=== PATIENT | male | born 1955 | race Caucasian/White ===

== ENCOUNTER 2018-08-27 12:00 | Outpatient (CLI) | payer MEDICARE ==
--- NOTE | 2018-08-27 15:31 | MRI ---
MRI CERVICAL SPINE WITHOUT CONTRASTs: Date: 08/27/18 Multiplanar, multisequential imaging of cervical spine obtained. INDICATION: Cervical radiculopathy. FINDINGS: The cervical vertebra maintain normal height and alignment. There are moderate degenerative changes o f the mid cervical spine. Loss of disc space at C5-6 and C6-7 with hypertrophic spurring from the ant erior vertebra. Posterior listhesis at C5-6 measures approximately 3.0 mm. Asymmetric hypertrophy on the right produces right foraminal narrowing at C2-3. At C3-4, there is mild disc bulge and spondylosis; however, no cord impingement or foraminal encroach ment. At C4-5, there is mild disc bulge and spondylosis, most prominent centrally impinging on the anterior cord centrally. Mild uncinate hypertrophy without significant foraminal stenosis. At C5-6, posterior subluxation is noted above and posterior disc bulge and spondylosis which impinge on and mildly flatten the anterior cord. Bilateral foraminal narrowing secondary to hypertrophic mendoza ge. At C6-7, disc bulge and spondylosis abuts the anterior cord. These changes are more pronounced to the left. There is disc osteophyte complex and hypertrophic change encroaching into the left foramina. At C7-T1, there is mild spondylosis. IMPRESSION: Posterior disc bulge and spondylitic change most prominent at C4-5, C5-6, and C6-7 as described above . Right foraminal encroachment at C23 as noted above. POS: [facility]
== END 2018-08-27 12:01 | disposition home or self-care (01) ==
LOC: BICMRI 12:00
PROVIDERS: ATTEND Nurse Practitioner Family
DX: M47.22 Other spondylosis with radiculopathy, cervical region (principal); M50.121 Cervical disc disorder at C4-C5 level with radiculopathy; M50.122 Cervical disc disorder at C5-C6 level with radiculopathy; M50.123 Cervical disc disorder at C6-C7 level with radiculopathy
CPT/HCPCS: 72141

== ENCOUNTER 2018-09-28 15:06 | Emergency (ER) | payer MEDICARE ==
[2018-09-28 15:55] LABS: #Basophils 0.1 thou/uL (0.0-0.2); #Eosinphils 0.1 thou/uL (0.0-0.7); #Lymphocytes 2.8 thou/uL (1.20-3.40); #Monocytes 0.6 thou/uL (0.11-0.59); #Neutrophils 4.2 thou/uL (1.40-6.50); %Basophils 0.9 % (0.0-1.0); %Eosinophils 1.7 % (0.0-10.0); %Lymphocytes 35.4 % (21.0-51.0); %Monocytes 7.9 % (0.0-10.0); %Neutrophils 54.1 % (42.0-75.0); Hemoglobin 12.7 g/dL (14.0-18.0); Mean Corpuscular HGB CONC 32.2 g/dL (32.0-36.0); Mean Corpuscular Hemoglobin 31.7 pg (27.0-31.0); Mean Corpuscular Volume 98.5 fL (78.0-98.0); Mean Platelet Volume 7.6 fL (7.4-10.4); Platelet Count 292 thou/uL (130-400); RBC Distribution Width 12.9 % (11.5-14.5); White Blood Cell (WBC) Count 7.8 thou/uL (4.8-10.8)
[2018-09-28 16:21] LABS: ALT (SGPT) 11 U/L (8-55); AST (SGOT) 15 U/L (5-34); Albumin 4.3 g/dL (3.4-4.8); Alkaline Phosphatase 74 U/L (40-150); Anion Gap 11 mmol/L (10-20); BUN (Urea Nitrogen) 16 mg/dL (8.4-25.7); Bilirubin, Total 0.4 mg/dL (0.2-1.2); Calc. Creatinine Clearance 0 mL/min (70-130); Calcium 9.3 mg/dL (7.8-10.44); Carbon Dioxide 27 mmol/L (23-31); Chloride 101 mmol/L (98-107); Estimated GFR-MDRD 75; Globulin 2.5 g/dL (2.4-3.5); Glucose 117 mg/dL (80-115); Potassium 4.2 mmol/L (3.5-5.1); Protein, Total 6.8 g/dL (5.8-8.1); Sodium 135 mmol/L (136-145)
--- NOTE | 2018-09-28 17:30 | RAD ---
TWO VIEWS ABDOMEN: 09/28/18 HISTORY: Not provided. COMPARISON: None. FINDINGS: No evidence of pneumoperitoneum. Nonspecific bowel gas pattern. There is scattered fecal material in a nondistended, nondilated colon. No significant density in the abdomen or pelvis. IMPRESSION: Nonspecific bowel gas pattern. POS: [facility]
== END 2018-09-28 16:43 | disposition home or self-care (01) ==
LOC: ERS 15:06
DX: K59.00 Constipation, unspecified (principal); K21.9 Gastro-esophageal reflux disease without esophagitis; I10 Essential (primary) hypertension; J44.9 Chronic obstructive pulmonary disease, unspecified; F17.210 Nicotine dependence, cigarettes, uncomplicated; Z79.899 Other long term (current) drug therapy
CPT/HCPCS: 74019; 80053; 85025; 96360

== ENCOUNTER 2018-10-25 11:04 | Outpatient (CLI) | payer MEDICARE ==
--- NOTE | 2018-10-25 15:26 | RAD ---
CERVICAL SPINE AP AND LATERAL STANDAR: Date: 10/25/18 COMPARISON: MRI cervical spine dated 08/27/18. FINDINGS: There is narrowing of the C5-6 and C6-7 interspace with anterior and posterior disc osteophyte comple xes. The 1.0 mm of C2 over C3 anterolisthesis which does not change with flexion or extension. No sig nificant translation with flexion or extension. There is 2.0 mm retrolisthesis of C5 over C6, which a lso does not change with flexion or extension. IMPRESSION: Spondylosis without translation with flexion or extension. POS: [facility]
== END 2018-10-25 11:05 | disposition home or self-care (01) ==
LOC: RAD 11:04
PROVIDERS: ATTEND Nurse Practitioner Family
DX: M43.02 Spondylolysis, cervical region (principal)
CPT/HCPCS: 72040

== ENCOUNTER 2018-11-26 17:01 | Observation (INO) | payer MEDICARE ==
[2018-11-26 17:39] LABS: #Basophils 0.1 thou/uL (0.0-0.2); #Eosinphils 0.2 thou/uL (0.0-0.7); #Lymphocytes 2.5 thou/uL (1.20-3.40); #Monocytes 1.1 thou/uL (0.11-0.59); #Neutrophils 11.6 thou/uL (1.40-6.50); %Basophils 0.5 % (0.0-1.0); %Eosinophils 1.3 % (0.0-10.0); %Lymphocytes 16.3 % (21.0-51.0); %Monocytes 7.3 % (0.0-10.0); %Neutrophils 74.6 % (42.0-75.0); Hemoglobin 12.8 g/dL (14.0-18.0); Mean Corpuscular HGB CONC 32.5 g/dL (32.0-36.0); Mean Corpuscular Hemoglobin 31.5 pg (27.0-31.0); Mean Platelet Volume 8.2 fL (7.4-10.4); Platelet Count 251 thou/uL (130-400); Red Blood Cell (RBC) Count 4.07 mill/uL (4.70-6.10); White Blood Cell (WBC) Count 15.5 thou/uL (4.8-10.8)
[2018-11-26 18:00] LABS: ALT (SGPT) 11 U/L (8-55); AST (SGOT) 12 U/L (5-34); Albumin 4.3 g/dL (3.4-4.8); Alkaline Phosphatase 85 U/L (40-150); Anion Gap 15 mmol/L (10-20); BUN (Urea Nitrogen) 17 mg/dL (8.4-25.7); Bilirubin, Total 0.3 mg/dL (0.2-1.2); Calc. Creatinine Clearance 0 mL/min (70-130); Calcium 9.1 mg/dL (7.8-10.44); Carbon Dioxide 24 mmol/L (23-31); Chloride 102 mmol/L (98-107); Estimated GFR-MDRD 84; Globulin 2.4 g/dL (2.4-3.5); Glucose 104 mg/dL (80-115); Potassium 4.9 mmol/L (3.5-5.1); Protein, Total 6.7 g/dL (5.8-8.1); Sodium 136 mmol/L (136-145)
--- NOTE | 2018-11-26 18:41 | RAD ---
CHEST PA AND LATERAL: History: 63-year-old male with history of chest pain. FINDINGS: Heart size is normal. The lungs are clear. IMPRESSION: No acute intrathoracic disease. POS: [facility]
[2018-11-26] MEDS ORDERED: Nitroglycerin 2% Ointment 1 INCH/1 GM Packet ONE (19:19)
[2018-11-26] MEDS ORDERED: Senokot S 8.6-50 MG TAB PO PRN (20:21)
[2018-11-26] MEDS ORDERED: Calcium Carbonate 500 MG ChewTAB PO PRN (20:21)
[2018-11-26] MEDS ORDERED: Nitroglycerin 0.4 MG TAB (25 Tab Bottle) PO PRN (20:21)
[2018-11-26] MEDS ORDERED: Zolpidem Tartrate 5 MG TAB PO PRN (20:21)
[2018-11-26] MEDS ORDERED: Ondansetron ODT 4 MG TAB PO PRN (20:21)
[2018-11-26] MEDS ORDERED: Ondansetron PF 4 MG/2 ML Vial IVP PRN (20:21)
[2018-11-26] MEDS ORDERED: Bisacodyl 5 MG TAB PO PRN (20:21)
[2018-11-26] MEDS ORDERED: Morphine 2 MG/ML SYRINGE ONE (20:51)
[2018-11-26] MEDS ORDERED: Metoprolol Tartrate 25 MG TAB PO SCH (21:00)
[2018-11-26] MEDS ORDERED: Famotidine/PF 20 mg/2ml Vial SLOW IVP SCH (21:00)
[2018-11-26 21:05] LABS: Troponin I Less than 0.010 ng/mL (< 0.028)
[2018-11-26] MEDS: Acetaminophen 325 MG TAB PO PRN (22:47)
[2018-11-26] MEDS: Famotidine 20 MG TAB PO SCH (22:47)
[2018-11-26] MEDS: Sodium Chloride 0.9% 1,000 ML IV SCH (22:53)
[2018-11-26] MEDS: Nitroglycerin 2% Ointment 1 INCH/1 GM Packet TOP SCH (22:54)
[2018-11-26 23:00] VITALS: BMI 20.7
[2018-11-26 23:50] LABS: Troponin I Less than 0.010 ng/mL (< 0.028)
[2018-11-27 05:06] LABS: #Basophils 0.1 thou/uL (0.0-0.2); #Eosinphils 0.2 thou/uL (0.0-0.7); #Lymphocytes 2.6 thou/uL (1.20-3.40); #Monocytes 1.1 thou/uL (0.11-0.59); #Neutrophils 9.2 thou/uL (1.40-6.50); %Basophils 0.5 % (0.0-1.0); %Eosinophils 1.7 % (0.0-10.0); %Lymphocytes 19.8 % (21.0-51.0); %Monocytes 8.5 % (0.0-10.0); %Neutrophils 69.5 % (42.0-75.0); Hemoglobin 11.8 g/dL (14.0-18.0); Mean Corpuscular HGB CONC 32.7 g/dL (32.0-36.0); Mean Corpuscular Hemoglobin 31.8 pg (27.0-31.0); Mean Corpuscular Volume 97.1 fL (78.0-98.0); Platelet Count 202 thou/uL (130-400); RBC Distribution Width 12.7 % (11.5-14.5); White Blood Cell (WBC) Count 13.2 thou/uL (4.8-10.8)
[2018-11-27 05:27] LABS: Anion Gap 10 mmol/L (10-20); BUN (Urea Nitrogen) 12 mg/dL (8.4-25.7); Calc. Creatinine Clearance 77 mL/min (70-130); Carbon Dioxide 28 mmol/L (23-31); Chloride 105 mmol/L (98-107); Estimated GFR-MDRD Greater than 90; Glucose 93 mg/dL (80-115); Potassium 4.7 mmol/L (3.5-5.1); Sodium 138 mmol/L (136-145)
[2018-11-27] MEDS: Nitroglycerin 2% Ointment 1 INCH/1 GM Packet TOP SCH ×2 (05:42→13:14)
[2018-11-27] MEDS: Sodium Chloride 0.9% 1,000 ML IV SCH (07:49)
[2018-11-27] MEDS: cloNIDine 0.1 MG TAB PO SCH ×2 (07:49→13:52)
[2018-11-27] MEDS: Acetaminophen 325 MG TAB PO PRN (07:49)
[2018-11-27] MEDS: Enoxaparin Sodium 40 MG/0.4 ML SYRINGE SC SCH ×2 (07:49→07:56)
[2018-11-27] MEDS: Famotidine 20 MG TAB PO SCH (07:50)
[2018-11-27] MEDS: Gabapentin 300 MG CAP PO SCH ×2 (07:50→13:52)
[2018-11-27] MEDS ORDERED: Aspirin 325 MG TAB PO SCH (09:00)
--- NOTE | 2018-11-27 09:09 | HP ---
CHIEF COMPLAINT: Chest pain. HISTORY OF PRESENT ILLNESS: This is a 63-year-old male with past medical history of GERD, hypertension, and coronary artery disease, presenting with chest pain. Per the patient, his chest pain started from his abdomen at the epigastric region and made its way to his chest. The patient states that he thinks the chest pain is most likely due to his history of GERD. Per record, the patient stated that he was picking up his heavy blanket and he started having this epigastric chest pain, which radiated into his chest. The patient has a history of having chest pain with exertion, but it seems like the patient is currently now having chest pain with minimal activity. Upon investigation and reading the patient's chart, the patient had a heart catheterization in 2011, which showed no stenosis at the time. At this time, the patient states that his chest pain is minimal and he denies any fever, chills, shortness of breath, palpitation, abdominal pain, constipation, or diarrhea. In the ED, the patient stated that his chest pain was 7/10 and described as sharp pain, but currently, the patient denies any chest pain at this time. REVIEW OF SYSTEMS: Positive for minimal chest pain at this time. Otherwise, all systems are reviewed and are negative. PAST MEDICAL HISTORY: GERD, hypertension, and COPD. FAMILY HISTORY: Reviewed and noncontributory to this visit. PAST SURGICAL HISTORY: Heart catheterization in 2012 and vasectomy. PSYCHIATRIC HISTORY: No psych history. SOCIAL HISTORY: The patient currently smokes half a pack per day. The patient lives at home by himself. The patient denies any illicit drugs and alcohol use. ALLERGIES: THE PATIENT IS ALLERGIC TO TRAMADOL. CURRENT MEDICATIONS: The patient takes: 1. Imdur 120 mg. 2. Toprol-XL 25 mg. 3. Catapres 0.1 mg. 4. DuoNeb. 5. Protonix. 6. Adrian. PHYSICAL EXAMINATION: VITAL SIGNS: The patient's blood pressure is 125/85, pulse of 85, respiratory rate of 18, temperature of 98.6, and oxygen saturation of 95%. GENERAL: The patient is alert and oriented x3, not in acute distress. The patient is lying on his left side, speaking in full sentences, pleasant. HEENT: Normocephalic and atraumatic. Pupils are equally round and reactive to light. Extraocular movements are intact. No scleral icterus. No conjunctival pallor. Mucous membranes are moist. NECK: Trachea is midline. Full range of motion. No JVD is appreciated. Supple. LUNGS: Clear to auscultation bilaterally. No wheezing, no rales, no rhonchi appreciated. CARDIAC: Positive S1 and S2. Regular rate and rhythm. No murmurs, no gallops, no rubs appreciated. ABDOMEN: Soft, nontender, and nondistended. Positive bowel sounds in all quadrants. No rigidity. No guarding. EXTREMITIES: 5/5 upper extremity strength with good pulses bilaterally. Lower extremity, no edema noted. 5/5 lower extremity strength. NEUROLOGIC: Cranial nerves 2 through 12 grossly intact. No neurologic deficits noted. SKIN: Warm, dry, and intact. PSYCH: Normal affect. Alert and oriented x3. DIAGNOSTIC DATA: EKG shows sinus rhythm with a rate of 78. Chest x-ray shows emphysematous changes. LABORATORY DATA: WBC 15.5, hemoglobin is 12.8, hematocrit is 39.5, platelet is 251. Sodium is 136, potassium is 4.9, chloride is 102, carbon dioxide of 24, anion gap of 15, BUN is 17, creatinine is 0.91, glucose is 104. Troponin is 0.010 x2. ASSESSMENT AND PLAN: 1. This is a 63-year-old male, being admitted for chest pain, rule out acute coronary syndrome. At this time, the patient's troponin x2 has been negative. We will trend the patient's troponins and we have consulted Cardiology. We will follow up with their recommendations. We will continue the patient on aspirin and his beta blockers. We will continue to monitor the patient and we will follow up on echo, which has been ordered. 2. History of gastroesophageal reflux disease. At this time, we have started the patient on Pepcid. We will continue the patient on Pepcid and we have advised the patient to elevate the head of bed at 45 degrees when he is sleeping and also for the patient to eat early. The patient has also been advised to stay away from spicy food, milk, cheese since these foods can cause reflux symptoms. 3. Coronary artery disease. We will continue the patient on his home medications. 4. Hyperlipidemia. We will continue the patient on the current treatment. 5. Deep venous thrombosis and gastrointestinal prophylaxis. Job ID: [id number]
[2018-11-27] MEDS ORDERED: Regadenoson 0.4 MG/5 ML SYRINGE ONE (10:04)
[2018-11-27] MEDS ORDERED: HYDROcodone/Acetaminophen 5/325 mg Tablet PO PRN ×2 (13:37)
--- NOTE | 2018-11-27 16:01 | NM ---
NUCLEAR MEDICINE MYOCARDIAL PERFUSION SCAN 11/27/18 HISTORY: Chest pain, history of myocardial infarction. TECHNIQUE: SPECT imaging of the left ventricular myocardium obtained during rest and stress following the intrav enous administration of 9.5 and 28.5 millicuries technetium 99m labeled Sestamibi respectively. FINDINGS: No fixed or reversible defect noted. TID is 1.04. Left ventricular wall motion appears normal. Left ventricular ejection fraction at 60% with EDV of 10 8 mL and ESV of 43 mL. IMPRESSION: No fixed or reversible defects. Normal left ventricular wall motion and ejection fraction. POS: [facility]
[2018-11-27 16:16] VITALS: BP 148/78; TEMP 98
--- NOTE | 2018-11-27 16:57 | DIS ---
DATE OF ADMISSION: 11/26/2018 DATE OF DISCHARGE: 11/27/2018 PRIMARY CARE PHYSICIAN: Lisa Aguirre MD DISCHARGE DIAGNOSES: 1. Chest pain, noncardiac, likely musculoskeletal. 2. Hypertension. 3. Tobacco abuse. 4. Chronic obstructive pulmonary disease. DISCHARGE MEDICATIONS: Discharge medications remain the same as admission medication. New medication, aspirin 325 mg daily. PROCEDURES IN THE HOSPITAL: Nuclear medicine stress test, which is negative for any reversible or fixed defects. Ejection fraction is noticed at 60%. No wall motion abnormality. TID 1.04. HISTORY OF PRESENT ILLNESS: Mr. Noonan is a 63-year-old male with past medical history of hypertension, COPD, and tobacco abuse, who presented to the ER with complaints of chest pain after lifting some heavy blankets. He had a heart catheterization in 2011, which he reports that was negative. He just moved to [facility] from [place] 3 months ago and reports that he has an upcoming appointment with Cardiology in the next 2 or 3 weeks. He was admitted for observation and further workup. His cardiac enzymes were trended and were negative. He underwent his nuclear medicine stress test, which was also negative. He remained hemodynamically stable throughout the rest of his hospitalization. He was seen and examined prior to discharge. PHYSICAL EXAMINATION: VITAL SIGNS: Temperature 97.5, pulse of 74, respirations 18, saturating 93% on room air, and blood pressure of 132/78. GENERAL: No acute distress. CHEST: Clear to auscultation bilaterally. HEART: Rate and rhythm is regular. DISCHARGE INSTRUCTIONS: He is being discharged with instruction to keep his followup appointment with Cardiology in the outpatient setting. He may benefit from repeat catheterization at some point in near future. Currently, ACS has been ruled out. He is instructed to start taking a daily dose of aspirin as above. Job ID: [id number]
--- NOTE | 2018-11-29 13:09 | STRESS ---
Acquisition Time: 2018-11-27 12:09:20 Total Exercise Time: 00:01:00 Test Indications: CHEST PAIN Medications: Protocol: LEXISCAN Max HR: 097 BPM 62% of Pred: 156 BPM Max BP: 120/072 mmHG Max Work Load: 1.0 METS RESTING ECG: NORMAL SINUS RHYTHM SYMPTOMS: CHEST PAIN, MENJIVAR NORMAL BP REPONSE ECTOPY: NONE ECG STRESS: NO SIGNIFICANT CHANGES INTERPRETATION: AWAIT NUCLEAR IMAGES FOR DEFINITIVE DIAGNOSIS Confirmed by JUANY JEREZ (2), manager editorial MALVIN HAWKINS ([id number]) on 11/29/2018 1:09:04 PM Referred By: MD VENTURA Confirmed By:JUANY JEREZ
== END 2018-11-27 17:32 | disposition home or self-care (01) ==
LOC: ERS 17:01 → 2SW 21:38
PROVIDERS: ADMIT Internal Medicine; ATTEND Internal Medicine
DX: R07.89 Other chest pain (principal); I10 Essential (primary) hypertension; F17.210 Nicotine dependence, cigarettes, uncomplicated; J44.9 Chronic obstructive pulmonary disease, unspecified; I25.10 Atherosclerotic heart disease of native coronary artery without angina pectoris; K21.9 Gastro-esophageal reflux disease without esophagitis; Z98.52 Vasectomy status; Z88.5 Allergy status to narcotic agent; Z79.82 Long term (current) use of aspirin; Z79.899 Other long term (current) drug therapy; Z98.890 Other specified postprocedural states
CPT/HCPCS: 71046; 78452; 80048; 80053; 83690; 84484 ×2; 85025 ×2; 93005; 93017; 94640 ×2; 94760 ×2; 96361 ×3; 96374; 99285; A9500; G0378 ×2; 36415; J1650; J2270; J2785; J7620

== ENCOUNTER 2019-01-15 14:50 | Emergency (ER) | payer MEDICARE, SELFPAY ==
[2019-01-15] MEDS ORDERED: Aspirin 325 MG TAB ONE (15:15)
[2019-01-15 15:31] LABS: #Basophils 0.1 thou/uL (0.0-0.2); #Eosinphils 0.1 thou/uL (0.0-0.7); #Lymphocytes 2.8 thou/uL (1.20-3.40); #Monocytes 0.4 thou/uL (0.11-0.59); #Neutrophils 3.7 thou/uL (1.40-6.50); %Basophils 1.8 % (0.0-1.0); %Eosinophils 1.5 % (0.0-10.0); %Lymphocytes 39.2 % (21.0-51.0); %Monocytes 5.8 % (0.0-10.0); %Neutrophils 51.6 % (42.0-75.0); Mean Corpuscular HGB CONC 31.8 g/dL (32.0-36.0); Mean Corpuscular Hemoglobin 31.4 pg (27.0-31.0); Mean Corpuscular Volume 98.9 fL (78.0-98.0); Mean Platelet Volume 6.8 fL (7.4-10.4); Platelet Count 505 thou/uL (130-400); Red Blood Cell (RBC) Count 3.82 mill/uL (4.70-6.10); White Blood Cell (WBC) Count 7.1 thou/uL (4.8-10.8)
[2019-01-15 15:52] LABS: ALT (SGPT) 8 U/L (8-55); AST (SGOT) 10 U/L (5-34); Albumin 4.1 g/dL (3.4-4.8); Alkaline Phosphatase 70 U/L (40-150); Anion Gap 12 mmol/L (10-20); BUN (Urea Nitrogen) 12 mg/dL (8.4-25.7); Bilirubin, Total Less than 0.2 mg/dL (0.2-1.2); CK (CPK) 103 U/L (30-200); Calc. Creatinine Clearance 0 mL/min (70-130); Calcium 9.3 mg/dL (7.8-10.44); Carbon Dioxide 26 mmol/L (23-31); Chloride 101 mmol/L (98-107); Estimated GFR-MDRD Greater than 90; Globulin 2.7 g/dL (2.4-3.5); Glucose 94 mg/dL (80-115); Lipase 10 U/L (8-78); Potassium 3.7 mmol/L (3.5-5.1); Protein, Total 6.8 g/dL (5.8-8.1); Sodium 135 mmol/L (136-145)
[2019-01-15] MEDS ORDERED: Ondansetron ODT 8 MG TAB ONE (16:17)
[2019-01-15] MEDS ORDERED: Ketorolac Tromethamine 30 MG/ML VIAL ONE (16:17)
[2019-01-15] MEDS ORDERED: Ondansetron PF 4 MG/2 ML Vial ONE (16:18)
--- NOTE | 2019-01-15 16:42 | RAD ---
AP VIEW CHEST 01/15/19 HISTORY: Chest pain. AP view chest is obtained on 01/15/19. Comparison made to previous exam from 11/26/18. AP view chest demonstrates EKG leads seen over the chest. No evidence of pneumothorax or pneumonia se en. Moderate pulmonary vascular congestion seen. No evidence of effusions seen. IMPRESSION: Pulmonary vascular congestion, otherwise unremarkable AP view chest. POS: [facility]
== END 2019-01-15 18:58 | disposition home or self-care (01) ==
LOC: ERS 14:50
DX: R07.9 Chest pain, unspecified (principal); K21.9 Gastro-esophageal reflux disease without esophagitis; I10 Essential (primary) hypertension; J44.9 Chronic obstructive pulmonary disease, unspecified; F17.210 Nicotine dependence, cigarettes, uncomplicated; Z79.899 Other long term (current) drug therapy
CPT/HCPCS: 36415; 71045; 80053; 82550; 83690; 83880; 84484; 85025; 85379; 93005; 96374; J1885; J2405

== ENCOUNTER 2019-04-19 23:32 | Observation (INO) | payer MEDICARE ==
[2019-04-20] MEDS ORDERED: Nitroglycerin 0.4 MG TAB 1 EACH ONE (00:03)
[2019-04-20] MEDS ORDERED: Pantoprazole 40 MG VIAL ONE (00:03)
[2019-04-20 00:19] LABS: #Basophils 0.1 thou/uL (0.0-0.2); #Eosinphils 0.3 thou/uL (0.0-0.7); #Lymphocytes 3.6 thou/uL (1.20-3.40); #Monocytes 0.7 thou/uL (0.11-0.59); #Neutrophils 4.1 thou/uL (1.40-6.50); %Basophils 1.5 % (0.0-1.0); %Eosinophils 3.9 % (0.0-10.0); %Lymphocytes 40.9 % (21.0-51.0); %Neutrophils 45.7 % (42.0-75.0); Hemoglobin 12.6 g/dL (14.0-18.0); Mean Corpuscular HGB CONC 32.2 g/dL (32.0-36.0); Mean Corpuscular Volume 99.2 fL (78.0-98.0); Mean Platelet Volume 7.4 fL (7.4-10.4); Platelet Count 306 thou/uL (130-400); RBC Distribution Width 13.5 % (11.5-14.5); Red Blood Cell (RBC) Count 3.94 mill/uL (4.70-6.10); White Blood Cell (WBC) Count 8.9 thou/uL (4.8-10.8)
[2019-04-20 00:25] LABS: INR-International Normal Ratio 0.9; PTT 29.4 SEC (22.9-36.1); Prothrombin Time 12.1 SEC (12.0-14.7)
--- NOTE | 2019-04-20 00:29 | RAD ---
EXAM: CHEST ONE VIEW HISTORY: Difficulty breathing, bloody emesis. COMPARISON: 01/15/2019. FINDINGS: The cardiac silhouette and pulmonary vasculature is within normal limits. The lungs are clear. The os seous structures are intact. Vascular calcifications are again seen in the thoracic aorta. IMPRESSION: No acute cardiopulmonary process.
[2019-04-20] MEDS ORDERED: Ondansetron PF 4 MG/2 ML Vial ONE (00:31)
[2019-04-20 00:40] LABS: ALT (SGPT) Less than 7 U/L (8-55); AST (SGOT) 11 U/L (5-34); Albumin 3.8 g/dL (3.4-4.8); Alkaline Phosphatase 60 U/L (40-150); Anion Gap 10 mmol/L (10-20); BUN (Urea Nitrogen) 13 mg/dL (8.4-25.7); Bilirubin, Total Less than 0.2 mg/dL (0.2-1.2); Calc. Creatinine Clearance 0 mL/min (70-130); Calcium 8.8 mg/dL (7.8-10.44); Carbon Dioxide 26 mmol/L (23-31); Chloride 106 mmol/L (98-107); Estimated GFR-MDRD 83; Globulin 1.9 g/dL (2.4-3.5); Glucose 86 mg/dL (80-115); Potassium 4.2 mmol/L (3.5-5.1); Protein, Total 5.7 g/dL (5.8-8.1); Sodium 138 mmol/L (136-145)
[2019-04-20] MEDS ORDERED: Morphine 4 MG/ML VIAL ONE (03:05)
[2019-04-20 03:43] LABS: Troponin I Less than 0.010 ng/mL (< 0.028)
[2019-04-20] MEDS ORDERED: Acetaminophen 325 MG TAB PO PRN (04:48)
[2019-04-20 05:44] VITALS: BMI 18.9
[2019-04-20 08:00] LABS: Troponin I Less than 0.010 ng/mL (< 0.028)
[2019-04-20] MEDS ORDERED: Non-Formulary Item 1 EACH (Diclofenac Sodium [Diclofenac Sodium 1% Gel] 2 GM) TOP PRN (08:21)
[2019-04-20] MEDS: Ketorolac Tromethamine 30 MG/ML VIAL IVP PRN ×3 (08:46→22:17)
[2019-04-20] MEDS: cloNIDine 0.1 MG TAB PO SCH (08:47)
[2019-04-20] MEDS: Gabapentin 300 MG CAP PO SCH ×3 (08:47→20:10)
[2019-04-20] MEDS: Famotidine 20 MG TAB PO SCH ×2 (08:47→20:10)
[2019-04-20] MEDS: HYDROcodone/Acetaminophen 10/325 mg Tablet PO SCH ×2 (08:47→20:08)
[2019-04-20] MEDS: Cyanocobalamin (Vitamin B-12) 1,000 MCG TAB PO SCH (08:47)
[2019-04-20] MEDS: Pantoprazole 40 MG GRANULES PACKET PO SCH (08:49)
[2019-04-20] MEDS ORDERED: Non-Formulary Item 1 EACH (Cyanocobalamin (Vitamin B-12) [Vitamin B-12] 1,000 MCG) PO SCH (09:00)
[2019-04-20] MEDS ORDERED: Aspirin 325 MG TAB PO SCH (09:00)
[2019-04-20] MEDS ORDERED: Non-Formulary Item 1 EACH (Isosorbide Mononitrate [Imdur Er] 120 MG) PO SCH (09:00)
[2019-04-20] MEDS ORDERED: Non-Formulary Item 1 EACH (Ranitidine Hcl [Ranitidine Hcl] 150 MG) PO SCH (09:00)
[2019-04-20] MEDS ORDERED: Non-Formulary Item 1 EACH (Pantoprazole Sodium [Protonix] 20 MG) PO SCH (09:00)
--- NOTE | 2019-04-20 12:34 | HP ---
CHIEF COMPLAINT: Chest pain. HISTORY OF PRESENT ILLNESS: The patient is a 63-year-old male with past medical history significant for coronary artery disease, reportedly mild per the patient per left heart catheterization in 2011; history of previous myocardial infarction, unknown type; hypertension; hyperlipidemia; tobacco abuse, who presented to the hospital with complaints of chest pain that began several days ago. The patient reports that the pain is fairly constant across his chest. At times, he has associated sharp stabbing pain in addition to his constant pain, which he describes as "squeezing." His pain is exacerbated with deep breathing. He has had intermittent episodes of shortness of breath as well as nausea and 1 episode of emesis that occurred prior to his presentation to the hospital. The patient states that he has had recurrent episodes of chest pain, but this seems to be worse than previous episodes. He was admitted at this facility on November 2018 and did have a nuclear stress test at that time, which was negative for reversible ischemia and showed normal EF. He has had no followup with Cardiology. 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 On arrival to the ER, EKG shows normal sinus rhythm with occasional PVC and no acute/dynamic ST or T-wave changes. His serial troponin has been negative x3. He continues to complain of some constant chest pain that does not seem to be relieved or exacerbated by anything at this point aside from deep breathing. REVIEW OF SYSTEMS: 12-point review of systems performed. He does report episodes of acid reflux, which causes him some chest discomfort. Otherwise, 12-point review of systems is negative. He denies any recent illnesses, cough, fever, or chills. He denies any coffee-grounds emesis or blood in his urine or stool. ALLERGIES: TRAMADOL. HOME MEDICATIONS: 1. Albuterol sulfate two puffs inhaled 6 hours p.r.n. 2. Clonidine 0.1 mg one tablet p.o. daily. 3. Vitamin B12 1000 mcg capsule one capsule daily. 4. Diclofenac 100 g tube 2 g topical q.i.d. p.r.n. 5. Gabapentin 300 mg p.o. t.i.d. 6. Hydrocodone 10/325 one tab p.o. b.i.d. 7. DuoNeb 3 mg nebulizer q.6 hours p.r.n. 8. Imdur 120 mg tablet one tablet p.o. daily. 9. Metoprolol succinate 100 mg tablet one tablet p.o. daily. 10. Protonix 20 mg one tablet p.o. daily. 11. Ranitidine 150 mg tablet one tablet p.o. b.i.d. PAST MEDICAL HISTORY/SURGICAL HISTORY: GERD, hypertension, COPD, mild coronary artery disease per patient per left heart catheterization in 2012, previous myocardial infarction, unknown type, chronic neck and pain syndrome, and vasectomy. SOCIAL HISTORY: The patient smokes at least 1/2 pack per day of cigarettes. He denies any alcohol or illicit drug use. He lives at home with family. FAMILY HISTORY: Noncontributory. PHYSICAL EXAMINATION: VITAL SIGNS: Blood pressure 134/80, pulse 76, O2 saturation is 92% on room air, temperature is 98 degrees. GENERAL: This is a thin, disheveled appearing male in no acute distress, although, does appear mildly uncomfortable because of his pain. HEENT: Head is atraumatic and normocephalic. Mucous membranes are moist. NECK: Trachea is midline. No JVD. CV: S1 and S2. Regular rate and rhythm. No appreciable murmurs, rubs, or gallops. LUNGS: Regular respiratory rate and pattern, occasional expiratory wheeze noted. Diminished vesicular breath sounds throughout. ABDOMEN: Positive bowel sounds. Soft, nontender. EXTREMITIES: No edema. Warm and well perfused. SKIN: Warm and dry. No apparent rashes or discolorations. NEUROLOGIC: Cranial nerves 2 through 12 are grossly intact. The patient is nonfocal. LABORATORY DATA: White blood cell count 8.9, hemoglobin 12.6, hematocrit 39.1, platelet count is 306. PT 12.1, INR is 0.9, APTT 29.4. Sodium 138, potassium 4.2, BUN 13, creatinine 0.92. AST 11, ALT 7, alkaline phosphatase 60. Troponin is negative x2. BNP is 27.6. ASSESSMENT: 1. Chest pain, largely atypical, although, the patient has known disease in numerous risk factors, acute coronary syndrome ruled out. 2. History of myocardial infarction, unknown type. 3. History of coronary artery disease, apparently nonocclusive per left heart catheterization in 2011 per patient. 4. Chronic pain syndrome, on opioids. 5. Chronic obstructive pulmonary disease with ongoing tobacco abuse. 6. Gastroesophageal reflux disease. PLAN: At this time given the patient's numerous risk factors and persistent episodes of chest pain despite negative recent nuclear stress test, we will consult Cardiology for their recommendations. The patient is not on aspirin or statin per home medication list and will start these as well as get a fasting lipid panel tomorrow morning. We will attempt pain relief with IV Toradol and initiate his other home pain medications. The care of this patient has been discussed with Dr. Ashford, who agrees with plan as outlined above. Job ID: [id number]
--- NOTE | 2019-04-20 14:45 | CON ---
DATE OF CONSULTATION: 04/20/2019 REASON FOR CONSULTATION: Chest pain. HISTORY OF PRESENT ILLNESS: Mr. Noonan is a pleasant 63-year-old white gentleman, who comes to the hospital for chest pain. He had a similar episode back in 2011 and underwent heart catheterization and he was told he had mild blockages, but nothing flow limiting. No stent or bypass surgery was recommended. He had an episode for the last several days of constant pain across his chest, sharp, stabbing at times. Yesterday, he developed nausea and vomiting. No bleeding. He decided to come in for this. He was here for similar episode back in November 2018, at which point, he had a nuclear stress test, that was negative. He had normal LV function. He has not seen Cardiology since 2011 when he had his heart catheterization, which is actually done in [place]. He moved to this area about 8 months ago. Currently, he is pain free. He tells me he has had a lot of GI issues. He has been on medications for reflux for several years and has never been able to get it fully controlled. I asked him when his last endoscopy had been and he tells me that he has never had one. PAST MEDICAL HISTORY: 1. GERD. 2. Hypertension. 3. COPD. 4. Mild coronary artery disease in 2011. 5. Chronic neck pain. PAST SURGICAL HISTORY: 1. Vasectomy in the past. 2. Left heart catheterization as above. SOCIAL HISTORY: He smokes about 5 cigarettes a day, but before that, he was smoking about a pack for several years. No alcohol or drugs. FAMILY HISTORY: Noncontributory. OUTPATIENT MEDICATIONS: 1. Albuterol inhaler. 2. Clonidine 0.1 mg a day. 3. Vitamin B12. 4. Diclofenac. 5. Gabapentin. 6. Hydrocodone p.r.n. 7. DuoNebs. 8. Imdur 120 mg a day. 9. Metoprolol succinate 100 mg a day. 10. Protonix. 11. Ranitidine 150 mg b.i.d. ALLERGIES: TRAMADOL. REVIEW OF SYSTEMS: 12-point review of systems was done and was all negative unless stated in history of present illness. PHYSICAL EXAMINATION: VITAL SIGNS: Temperature 98.1, pulse 82, respiratory rate 24, sat 95% on room air, and blood pressure 157/74. GENERAL: Awake, alert, and oriented x3. No distress. HEENT: Normocephalic and atraumatic. NECK: Supple. LUNGS: Clear. CARDIOVASCULAR: S1 and S2. No S3 or S4. No murmurs or rubs. ABDOMEN: Soft. Positive bowel sounds. EXTREMITIES: No edema. SKIN: Warm and dry. LABORATORY DATA: Laboratory work was reviewed. CBC with a white count of 8.9, hemoglobin of 12, hematocrit of 39, and platelet count of 306. Coags were unremarkable. Chemistries were unremarkable. Troponin was completely undetectable x3. BNP was 27. Normal BUN and creatinine. EKG was normal. ASSESSMENT/PLAN: 1. Chest pain. Atypical in nature, likely GI issues. 2. Gastroesophageal reflux disease. Never had a full evaluation with endoscopy. He will probably need a GI evaluation either inpatient or outpatient. PLAN: We will get an echocardiogram. If this is unremarkable, he may be discharged home from the cardiac perspective. We will follow up with him in 1 month, and if he continues to have chest pain, he will need a heart catheterization. Currently, he does not want a heart catheterization unless he absolutely needs it. He is not having an acute WA. He is not having any troponin elevation, so we will just continue current medications if his echo is normal. If his echo shows anything, but normal LV function, we will recommend a heart catheterization at that time. Thank you for letting me to participate in the care of your patient. We will follow. Job ID: [id number]
--- NOTE | 2019-04-20 20:31 | EKG ---
Test Reason : Blood Pressure : / mmHG Vent. Rate : 071 BPM Atrial Rate : 071 BPM P-R Int : 124 ms QRS Dur : 084 ms QT Int : 384 ms P-R-T Axes : 080 054 071 degrees QTc Int : 417 ms Normal sinus rhythm Normal ECG When compared with ECG of 19-APR-2019 23:46, (Unconfirmed) Premature ventricular complexes are no longer Present Confirmed by TRE SWEET, SCarie ([id number]) on 04/20/2019 8:31:12 PM Referred By: Wendi WELCH Confirmed By:DR. Rancho TOLEDO MD
[2019-04-21] MEDS: Ketorolac Tromethamine 30 MG/ML VIAL IVP PRN ×2 (04:24→11:52)
[2019-04-21] MEDS: Famotidine 20 MG TAB PO SCH ×2 (08:10→20:57)
[2019-04-21] MEDS: Cyanocobalamin (Vitamin B-12) 1,000 MCG TAB PO SCH (08:10)
[2019-04-21] MEDS: HYDROcodone/Acetaminophen 10/325 mg Tablet PO SCH ×2 (08:10→20:58)
[2019-04-21] MEDS: Gabapentin 300 MG CAP PO SCH ×3 (08:10→20:57)
[2019-04-21] MEDS: cloNIDine 0.1 MG TAB PO SCH (08:10)
[2019-04-21] MEDS: Pantoprazole 40 MG GRANULES PACKET PO SCH (08:11)
[2019-04-21] MEDS ORDERED: Communication Order-Pharmacy FS SCH (13:00)
[2019-04-21] MEDS: Ondansetron PF 4 MG/2 ML Vial IVP PRN (15:48)
--- NOTE | 2019-04-21 16:53 | PRG ---
DATE OF SERVICE: 04/21/2019 SUBJECTIVE: Mr. Noonan is a 63-year-old male with past medical history significant for coronary artery disease diagnosed in 2011, no prior intervention, history of previous myocardial infarction, unknown type, hypertension, hyperlipidemia, tobacco abuse, who presented to the hospital with complaints of chest pain. The patient continues to complain of some chest discomfort, although much improved. He denies any shortness of breath. He is currently resting comfortably. He denies any nausea or vomiting. He is tolerating full diet without any issue. No other complaints at this time. OBJECTIVE: VITAL SIGNS: Blood pressure 132/82, pulse is 75, O2 saturation is 93% on room air. The patient is afebrile. GENERAL: This is a thin male, resting comfortably in bed, in no acute distress. HEENT: Head is atraumatic and normocephalic. Mucous membranes are moist. Extraocular movements intact. NECK: Supple. No lymphadenopathy. No JVD. Trachea is midline. CV: S1 and S2. Regular rate and rhythm. No appreciable murmurs, rubs, or gallops. LUNGS: Regular respiratory rate and pattern, overall clear with somewhat diminished vesicular breath sounds throughout. ABDOMEN: Positive bowel sounds. Soft. Nontender. EXTREMITIES: No edema. SKIN: Warm and dry. NEUROLOGIC: Cranial nerves 2 through 12 are grossly intact. The patient is nonfocal. LABORATORY DATA: No new laboratory data today. ASSESSMENT: 1. Continued chest pain, with known disease, ACS ruled out. 2. Mild cardiomyopathy with EF 45% to 50% per echocardiogram today, likely ischemic cardiomyopathy, no overt sign of volume overload. 3. History of coronary artery disease, apparently nonocclusive per left heart catheterization in 2011 per the patient. 4. Chronic pain syndrome, on opioids. 5. Chronic obstructive pulmonary disease with ongoing tobacco abuse. 6. Gastroesophageal reflux disease. PLAN: At this time, we will follow Cardiology recommendations. Dr. Moctezuma has seen the patient and is recommending left heart catheterization to be performed tomorrow. We will continue beta [place] and aspirin. Obtain fasting lipid panel in a.m. Further recommendations based on findings of left heart catheterization tomorrow. We will avoid pharmacologic DVT prophylaxis in light of upcoming procedure. Job ID: [id number]
--- NOTE | 2019-04-21 19:26 | PDOC.CTH ---
Cardiology Progress Note - Subjective No new issues. No more episodes of chest pain. - Objective Vital Signs Temp Pulse Resp BP Pulse Ox 04/21/19 16:00 156/78 H 04/21/19 15:54 70 16 91 L 04/21/19 15:37 98.0 F 77 16 171/96 H 94 L 04/21/19 11:52 98 F 75 18 137/86 93 L 04/21/19 07:38 98 F 75 18 132/82 93 L Admit Weight 128 lb 1.6 oz Weight 129 lb 04/20/19 04/21/19 04/22/19 06:59 06:59 06:59 Intake Total 1420 850 Output Total 800 750 Balance -800 670 850 - Physical Examination General/Neuro: alert & oriented x3, NAD Neck: no JVD present Lungs: CTA, unlabored respirations Heart: RRR Abdomen: NT/ND Extremities: other: (no edema) - Telemetry Telemetry Rhythm: NSR - Labs Result Diagrams: 04/20/19 00:10 04/20/19 00:10 Troponin/CKMB Troponin I Less than 0.010 ng/mL (< 0.028) 04/20/19 07:28 - Assessment/Plan 1. Mild LV dysfucntion. 2. EF at 45-50% 3. [place] 4. Tobacco use. PLAN: - Will plan on further risk stratification with a C. - We spoke at length about risks and benefits of the procedure and he agrees to proceed.
[2019-04-21] MEDS ORDERED: Lorazepam 0.5 MG TAB PO PRN (20:56)
[2019-04-21] MEDS: Atorvastatin Calcium 10 MG TAB PO SCH (20:57)
[2019-04-22] MEDS: Sodium Chloride 0.9% 1,000 ML IV SCH ×2 (00:07→10:19)
[2019-04-22] MEDS: Ketorolac Tromethamine 30 MG/ML VIAL IVP PRN ×2 (00:13→10:19)
[2019-04-22] MEDS: Ondansetron PF 4 MG/2 ML Vial IVP PRN (00:14)
[2019-04-22] MEDS: Diclofenac 1% 100 GM GEL TP PRN ×3 (00:15→21:26)
[2019-04-22] MEDS: cloNIDine 0.1 MG TAB PO SCH (04:49)
[2019-04-22] MEDS: Famotidine 20 MG TAB PO SCH ×2 (04:49→21:22)
[2019-04-22] MEDS: HYDROcodone/Acetaminophen 10/325 mg Tablet PO SCH ×2 (04:49→21:23)
[2019-04-22] MEDS: Pantoprazole 40 MG GRANULES PACKET PO SCH (04:50)
[2019-04-22] MEDS: Gabapentin 300 MG CAP PO SCH ×3 (04:50→21:23)
[2019-04-22] MEDS: Aspirin 81 mg Enteric Coated Tablet PO SCH (04:50)
[2019-04-22] MEDS: Cyanocobalamin (Vitamin B-12) 1,000 MCG TAB PO SCH (04:51)
[2019-04-22 06:02] LABS: Anion Gap 12 mmol/L (10-20); BUN (Urea Nitrogen) 10 mg/dL (8.4-25.7); Calc. Creatinine Clearance 69 mL/min (70-130); Calcium 8.7 mg/dL (7.8-10.44); Carbon Dioxide 27 mmol/L (23-31); Cardiac Risk 3.1 (Less than 4.5); Chloride 104 mmol/L (98-107); Cholesterol 190 mg/dl (< 200 Desired); Estimated GFR-MDRD 86; Glucose 95 mg/dL (80-115); HDL Cholesterol 61 mg/dL (>60 Neg Risk); LDL Cholesterol, Calculated 108 mg/dL; Potassium 4.2 mmol/L (3.5-5.1); Triglycerides 105 mg/dL (Less than 150)
[2019-04-22 06:27] LABS: Sodium 139 mmol/L (136-145)
[2019-04-22] MEDS ORDERED: Lidocaine 1% (PF) 30 ML VIAL ONE (13:13)
[2019-04-22] MEDS ORDERED: Fentanyl 100 MCG/2 ML VIAL ONE (13:37)
[2019-04-22] MEDS ORDERED: Midazolam HCl 2 mg/2 ml Vial ONE (13:37)
[2019-04-22] MEDS ORDERED: Heparin 10,000 UNITS/1 ML VIAL ONE (14:02)
[2019-04-22] MEDS ORDERED: TICAGRELOR 90 MG TABLET ONE (14:33)
[2019-04-22] MEDS ORDERED: hydrALAZINE 20 MG/ML VIAL ONE (14:34)
[2019-04-22] MEDS ORDERED: Fentanyl 100 MCG/2 ML VIAL SLOW IVP SCH (16:00)
[2019-04-22] MEDS ORDERED: Carvedilol 3.125 MG TAB PO SCH (17:00)
[2019-04-22] MEDS ORDERED: Iopamidol 370 76% 50 ML VIAL FS ONE (20:13)
[2019-04-22] MEDS ORDERED: Iopamidol 370 76% 100 ML VIAL ONE (20:13)
--- NOTE | 2019-04-22 21:00 | PRG ---
DATE OF SERVICE: 04/22/2019 SUBJECTIVE: Mr. Noonan is a 63-year-old male, with past medical history significant for coronary artery disease, history of previous [place], hypertension, hyperlipidemia, tobacco abuse, who presented to the hospital with complaints of chest pain. The patient had continued to complain of some intermittent chest discomfort throughout his stay and Dr. Moctezuma took him to the labels molder today. He did undergo PTCA and stenting of the [place] circumflex. He tolerated the procedure well. He has no chest pain at this time. He does have some mild oozing from the right femoral access site. No pain or tenderness. OBJECTIVE: VITAL SIGNS: Blood pressure 129/70, pulse 71, O2 saturation is 92% on room air, respirations are 20. GENERAL: This is a thin male, resting comfortably in bed, in no acute distress. HEENT: Head is atraumatic and normocephalic. Mucous membranes are moist. Extraocular movements intact. NECK: Supple. No lymphadenopathy. No JVD. Trachea is midline. CV: S1 and S2. Regular rate and rhythm. No appreciable murmurs, rubs, or gallops. LUNGS: Regular respiratory rate and pattern, overall clear to auscultation. ABDOMEN: Positive bowel sounds. Soft, nontender. EXTREMITIES: No edema. Right femoral access site shows no overt evidence of hematoma, some minor oozing is noted status post pressure dressing. SKIN: Warm and dry. NEUROLOGIC: Cranial nerves 2 through 12 are grossly intact. The patient is nonfocal. LABORATORY DATA: No new laboratory data today. ASSESSMENT: 1. Coronary artery disease, status post stenting of the OM1 with a drug-eluting stent. 2. Mild cardiomyopathy per echo, EF 45% to 50%, ischemic. 3. Chronic pain syndrome. 4. Chronic obstructive pulmonary disease with ongoing tobacco abuse. 5. Gastroesophageal reflux disease. PLAN: We will monitor the patient overnight for signs of hematoma at the groin site. Pressure dressing has been placed. We will continue the patient on dual-antiplatelet therapy with Brilinta and aspirin. He will also continue statin. Expect discharge tomorrow morning. Job ID: [id number]
[2019-04-22] MEDS: Atorvastatin Calcium 10 MG TAB PO SCH (21:23)
[2019-04-22] MEDS: TICAGRELOR 90 MG TABLET PO SCH (21:24)
[2019-04-23 05:22] LABS: #Basophils 0.1 thou/uL (0.0-0.2); #Eosinphils 0.3 thou/uL (0.0-0.7); #Lymphocytes 2.2 thou/uL (1.20-3.40); #Monocytes 0.7 thou/uL (0.11-0.59); #Neutrophils 4.2 thou/uL (1.40-6.50); %Eosinophils 3.8 % (0.0-10.0); %Lymphocytes 29.7 % (21.0-51.0); %Monocytes 9.3 % (0.0-10.0); %Neutrophils 56.2 % (42.0-75.0); Hemoglobin 13.1 g/dL (14.0-18.0); Mean Corpuscular HGB CONC 32.7 g/dL (32.0-36.0); Mean Corpuscular Hemoglobin 32.4 pg (27.0-31.0); Mean Corpuscular Volume 99.3 fL (78.0-98.0); Mean Platelet Volume 7.9 fL (7.4-10.4); Platelet Count 282 thou/uL (130-400); RBC Distribution Width 13.4 % (11.5-14.5); Red Blood Cell (RBC) Count 4.04 mill/uL (4.70-6.10); White Blood Cell (WBC) Count 7.5 thou/uL (4.8-10.8)
[2019-04-23 05:45] LABS: ALT (SGPT) 13 U/L (8-55); AST (SGOT) 17 U/L (5-34); Albumin 3.8 g/dL (3.4-4.8); Alkaline Phosphatase 75 U/L (40-150); Anion Gap 10 mmol/L (10-20); BUN (Urea Nitrogen) 11 mg/dL (8.4-25.7); Bilirubin, Total Less than 0.2 mg/dL (0.2-1.2); Calc. Creatinine Clearance 66 mL/min (70-130); Calcium 9.2 mg/dL (7.8-10.44); Carbon Dioxide 29 mmol/L (23-31); Chloride 105 mmol/L (98-107); Estimated GFR-MDRD 85; Globulin 2.2 g/dL (2.4-3.5); Glucose 101 mg/dL (80-115); Potassium 4.2 mmol/L (3.5-5.1); Sodium 140 mmol/L (136-145)
[2019-04-23] MEDS: TICAGRELOR 90 MG TABLET PO SCH (07:56)
[2019-04-23] MEDS: Famotidine 20 MG TAB PO SCH (07:57)
[2019-04-23] MEDS: Cyanocobalamin (Vitamin B-12) 1,000 MCG TAB PO SCH (07:57)
[2019-04-23] MEDS: Aspirin 81 mg Enteric Coated Tablet PO SCH (07:58)
[2019-04-23] MEDS: HYDROcodone/Acetaminophen 10/325 mg Tablet PO SCH (07:58)
[2019-04-23] MEDS: cloNIDine 0.1 MG TAB PO SCH (07:58)
[2019-04-23] MEDS: Gabapentin 300 MG CAP PO SCH (07:58)
[2019-04-23] MEDS: Pantoprazole 40 MG GRANULES PACKET PO SCH (08:00)
[2019-04-23] MEDS: Diclofenac 1% 100 GM GEL TP PRN (08:01)
[2019-04-23 08:52] VITALS: BP 192/91; TEMP 98.2
[2019-04-23] MEDS ORDERED: Lisinopril 2.5 MG TAB PO SCH (09:00)
[2019-04-23] MEDS ORDERED: Aspirin Chewable 81 MG TAB PO SCH (09:00)
--- NOTE | 2019-04-23 21:33 | DIS ---
DATE OF ADMISSION: 04/20/2019 DATE OF DISCHARGE: 04/23/2019 CHIEF COMPLAINT ON ADMISSION: Chest pain. DISCHARGE DIAGNOSES: 1. Chest pain, fairly atypical, acute coronary syndrome ruled out, however, persistent; left heart catheterization by Dr. Moctezuma revealed severe stenosis of [place] obtuse margin status post percutaneous transluminal coronary angioplasty and stenting with a drug-eluting stent. 2. Mild ischemic cardiomyopathy per echo, ejection fraction 45% to 50%. 3. Chronic pain syndrome. 4. Chronic obstructive pulmonary disease with ongoing tobacco abuse. 5. Gastroesophageal reflux disease. BRIEF HOSPITAL COURSE: The patient is a 63-year-old male with past medical history significant for coronary artery disease and history of previous [place] in 2011, with reportedly mild coronary artery disease per the patient, hypertension, hyperlipidemia, and tobacco abuse, who presented to the hospital with complaints of chest pain. The patient described his chest pain as constant, along with associated sharp and stabbing pain, which was exacerbated by deep breathing. Given his risk factors, he was admitted for ACS rule out. He had previously undergone nuclear stress test in November 2018, which was negative for reversible ischemia. Dr. Moctezuma of Cardiology was consulted, who ordered echocardiogram, which showed mild left ventricular systolic dysfunction with EF 45% to 50%. Given the patient's persistent complaints of pain, he did take the patient to the phlebotomist lab assistant, which revealed severe stenosis of the [place] OM-1, with a 70% lesion, status post PTCA and stenting with drug-eluting stent. The patient tolerated the procedure well. He was initiated on anti-platelet therapy with Brilinta. His left heart catheterization was performed using a femoral approach. He did have some oozing and mild hematoma formation post catheterization, however, this was controlled with pressure dressing and he was observed overnight. This morning, he has ambulated without issue. He denies chest pain or shortness of breath. He is anxious to go home. He is tolerating a full diet. He has no complaints at this time. DISCHARGE DISPOSITION: Home. DISCHARGE CONDITION: Stable. DISCHARGE INSTRUCTIONS AND FOLLOWUP: The patient will continue his home medication regimen including his pain medications, which include his hydrocodone and gabapentin. New medications will include aspirin 81 mg daily along with Brilinta 90 mg p.o. b.i.d. The importance of these medications has been explained to the patient including the risk of in-stent thrombosis if he is noncompliant. He understands these risks. He will also be initiated on statin therapy with atorvastatin [address] p[address] at bedtime. Dr. Moctezuma has started lisinopril 2.5 mg p.o. daily. These 4 new medications have been sent to the Pharmacy. He will continue his Imdur, metoprolol succinate, and vitamin B12 supplements. He will follow up with Dr. Moctezuma of Cardiology. He will also follow up with his primary care physician. He has been cleared for discharge by Cardiology. The patient will continue aggressive risk factor modification as well as tobacco cessation, which has also been discussed with the patient at length. Job ID: [id number]
== END 2019-04-23 09:49 | disposition home or self-care (01) ==
LOC: ERS 23:32 → 2SW 04-20 04:32
PROVIDERS: ADMIT Hospitalist; ATTEND Hospitalist
PROC: 4A023N7 Measurement of Cardiac Sampling and Pressure, Left Heart, Percutaneous Approach (ICD-10-PCS; principal; 2019-04-19)
PROC: B2001ZZ Plain Radiography of Single Coronary Artery using Low Osmolar Contrast (ICD-10-PCS; 2019-04-19)
DX: R07.89 Other chest pain (principal); R06.02 Shortness of breath; I25.10 Atherosclerotic heart disease of native coronary artery without angina pectoris; I25.5 Ischemic cardiomyopathy; J44.9 Chronic obstructive pulmonary disease, unspecified; G89.4 Chronic pain syndrome; K21.9 Gastro-esophageal reflux disease without esophagitis; F17.210 Nicotine dependence, cigarettes, uncomplicated; I10 Essential (primary) hypertension; E78.5 Hyperlipidemia, unspecified; I25.2 Old myocardial infarction; Z88.6 Allergy status to analgesic agent; Z79.899 Other long term (current) drug therapy
CPT/HCPCS: 71045; 75625; 80048; 80053 ×2; 80061; 82274; 83880; 84484 ×2; 85025 ×2; 85347; 85610; 85730; 86850; 86900; 86901; 93005 ×3; 93458; 94640 ×5; 96374; 96375 ×3; 96376 ×3; 99285; C1760; C1769 ×2; C1874; C9600; G0378 ×3; 36415; 92928; 93010; 99152; 99153; C9113; J0360; J1644; J1885; J2001; J2250; J2270; J2405; J3010; J7620; Q9967

== ENCOUNTER 2019-05-04 10:48 | Observation (INO) | payer MEDICARE ==
[~2019-05-04 10:48] MED LIST: ISOVUE-370 76%-LOCM 1 ML ONE
--- NOTE | 2019-05-04 11:38 | RAD ---
XR Chest Pa Lat STANDARD HISTORY: Chest pain COMPARISON: 04/19/2019 FINDINGS: The heart size is normal. The lungs are well expanded without focal areas of consolidation, pneumothorax or pleural effusions. IMPRESSION: No radiographic evidence of acute cardiopulmonary process.
[2019-05-04 11:54] LABS: #Basophils 0.1 thou/uL (0.0-0.2); #Eosinphils 0.2 thou/uL (0.0-0.7); #Lymphocytes 2.6 thou/uL (1.20-3.40); #Monocytes 0.4 thou/uL (0.11-0.59); #Neutrophils 4.6 thou/uL (1.40-6.50); %Basophils 1.2 % (0.0-1.0); %Eosinophils 1.9 % (0.0-10.0); %Lymphocytes 33.2 % (21.0-51.0); %Monocytes 5.6 % (0.0-10.0); %Neutrophils 58.1 % (42.0-75.0); Hemoglobin 12.4 g/dL (14.0-18.0); Mean Corpuscular HGB CONC 32.2 g/dL (32.0-36.0); Mean Corpuscular Hemoglobin 31.2 pg (27.0-31.0); Mean Platelet Volume 8.2 fL (7.4-10.4); Platelet Count 303 thou/uL (130-400); RBC Distribution Width 12.8 % (11.5-14.5); Red Blood Cell (RBC) Count 3.98 mill/uL (4.70-6.10); White Blood Cell (WBC) Count 7.9 thou/uL (4.8-10.8)
[2019-05-04] MEDS ORDERED: Morphine 4 MG/ML VIAL ONE (12:02)
[2019-05-04] MEDS ORDERED: Ondansetron PF 4 MG/2 ML Vial ONE (12:03)
[2019-05-04 12:22] LABS: ALT (SGPT) 12 U/L (8-55); AST (SGOT) 13 U/L (5-34); Albumin 4.1 g/dL (3.4-4.8); Alkaline Phosphatase 69 U/L (40-150); Anion Gap 13 mmol/L (10-20); BUN (Urea Nitrogen) 13 mg/dL (8.4-25.7); Bilirubin, Total 0.2 mg/dL (0.2-1.2); CK (CPK) 77 U/L (30-200); Calc. Creatinine Clearance 0 mL/min (70-130); Calcium 9.5 mg/dL (7.8-10.44); Carbon Dioxide 24 mmol/L (23-31); Chloride 103 mmol/L (98-107); Estimated GFR-MDRD 87; Globulin 1.9 g/dL (2.4-3.5); Glucose 121 mg/dL (80-115); Potassium 3.9 mmol/L (3.5-5.1); Sodium 136 mmol/L (136-145)
[2019-05-04 16:21] LABS: Troponin I Less than 0.010 ng/mL (< 0.028)
--- NOTE | 2019-05-04 17:36 | CT ---
CT ANGIOGRAM CHEST WITH 3D RENDERIN05/04/19 HISTORY: Chest pain on and off last week. Mild biapical pleural thickening. No CT evidence for acute pulmonary embolism. No acute pulmonary par enchymal process. No mediastinal mass or adenopathy. No pleural effusion or pericardial effusion. The visualized upper abdomen is unremarkable. Possible small hiatal hernia. IMPRESSION: No CT evidence for acute pulmonary embolism. Possible small hiatal hernia. No evidence for other sign ificant acute process. Three vessel coronary artery calcific disease. POS: C
[2019-05-04 18:05] LABS: Troponin I Less than 0.010 ng/mL (< 0.028)
[2019-05-04] MEDS ORDERED: Diclofenac 1% 100 GM GEL TP PRN (20:18)
[2019-05-04] MEDS ORDERED: PROVENTIL INHALER 6.7 G (200 INHALATIONS) INH PRN (20:18)
[2019-05-04] MEDS ORDERED: Clopidogrel Bisulfate 75 MG TAB PO SCH (20:30)
[2019-05-04] MEDS ORDERED: Famotidine 20 MG TAB PO SCH (21:00)
[2019-05-04] MEDS ORDERED: Atorvastatin Calcium 10 MG TAB PO SCH (21:00)
--- NOTE | 2019-05-05 08:27 | HP ---
TIME OF ENCOUNTER: 6:30 p.m. CHIEF COMPLAINT: Chest pain. HISTORY OF PRESENT ILLNESS: Mr. Noonan is a 63-year-old male with past medical history significant for recent admission at this facility on April 20 through April 23 with complaint of chest pain. During that hospitalization, the patient was taken to the pharmaceutical laboratory technician by Dr. Moctezuma. Left heart catheterization revealed severe stenosis of the [place] obtuse marginal artery, status post PTCA and stenting with a drug-eluting stent. He had no significant disease in the LAD and a nondominant RCA. The patient did tolerate the procedure well. ACS was ruled out during that admission and chest pain was felt to be multifactorial and not all cardiac in nature. The patient presents back to the hospital today with complaints of chest pain that he describes as both stabbing and constant and occasional crushing. The chest pain began this morning at around 3:00 a.m. and woke him up from sleep. He went back to sleep and then it again woke him up. He took a sublingual nitroglycerin which did not help his pain. He presented to the ER for further workup and treatment. Thus far, workup has included an EKG, which shows sinus rhythm and no ischemic ST or T-wave changes. His serial troponin has been negative x3. At the time of my interview, the patient's pain is improving. He reports no associated shortness of breath with his chest pain nor dizziness or palpitations. REVIEW OF SYSTEMS: The patient reports that he has felt somewhat fatigued since his hospitalization. He did see Dr. Moctezuma recently in clinic, who exchanged his Brilinta for Plavix. He has seemed to tolerate his medications well. He denies any cough, fever, or chills. No recent illnesses or fevers. No dysuria. He does have history of GERD with some intermittent nausea and emesis. ALLERGIES: TRAMADOL. HOME MEDICATIONS: 1. Plavix 75 mg daily. 2. Aspirin 81 mg daily. 3. Lisinopril 2.5 mg daily. 4. Atorvastatin 10 mg p.o. at bedtime. 5. Albuterol sulfate 2 puffs q.6 hours p.r.n. 6. Clonidine 0.1 mg one tablet daily. 7. Vitamin B12 1000 mcg capsule one cap daily. 8. Diclofenac 100 g tube, 2 g topical q.i.d. p.r.n. 9. Gabapentin 300 mg p.o. t.i.d. 10. Hydrocodone 10/325 one tab p.o. b.i.d. 11. DuoNeb 3 mg nebulizer q.6 hours p.r.n. 12. Imdur 120 mg tablet one tablet p.o. daily. 13. Metoprolol succinate 100 mg tablet one tablet daily. 14. Protonix 40 mg one tablet daily. 15. Ranitidine 150 mg tablet one tablet p.o. b.i.d. PAST MEDICAL HISTORY/SURGICAL HISTORY: Coronary artery disease, status post recent stent to the OM with Dr. Moctezuma; GERD; hypertension; COPD with ongoing tobacco abuse; previous [place] in 2012, unknown type; chronic neck and pain syndrome, on chronic pain medications; and vasectomy. SOCIAL HISTORY: Patient continues to smoke 1/2 pack per day of cigarettes. He denies any alcohol or illicit drug use. He lives at home with family. FAMILY HISTORY: Noncontributory. PHYSICAL EXAMINATION: VITAL SIGNS: Blood pressure 118/85, pulse 63, O2 saturation is 95% on room air, respirations 18, and the patient is afebrile. GENERAL: This is a thin male in no acute distress, resting comfortably in bed, eating dinner. HEENT: Head is atraumatic and normocephalic. Mucous membranes are moist. NECK: Supple. Trachea is midline. No JVD. CV: S1 and S2. Regular rate and rhythm. No appreciable murmurs, rubs, or gallops. LUNGS: Regular respiratory rate and pattern, overall clear to auscultation bilaterally. Somewhat diminished vesicular breath sounds throughout. ABDOMEN: Positive bowel sounds. Soft, nontender. EXTREMITIES: No edema. SKIN: Warm and dry. No rashes or discolorations. NEUROLOGIC: Cranial nerves 2 through 12 are grossly intact. The patient is nonfocal. PERTINENT LABORATORY DATA: Includes negative troponin x3. ASSESSMENT: 1. Chest pain, atypical, appears noncardiac at this point. Troponin is negative x3. EKG is normal, ACS has been ruled out, the pain seems to be improving with his home dose of Moss. 2. Coronary artery disease with recent PTCA and stenting of the OM with drug-eluting stent by Dr. Moctezuma. 3. Chronic pain syndrome, on opioids and gabapentin. 4. Chronic obstructive pulmonary disease with ongoing tobacco abuse. 5. Gastroesophageal reflux disease with intermittent nausea and emesis. PLAN: At this time, ACS has been ruled out and secondary to the atypical nature of his pain, I believe that this is likely noncardiac. If the patient's pain continues to improve and he ambulates, I suspect it will be reasonable to discharge him tomorrow with outpatient followup. I think that he would likely benefit from an outpatient GI workup and possible endoscopy to see if his pain could be GI in nature given his history of persistent acid reflux. If this chest pain should return or he develops any worrisome symptoms, would consider consulting Dr. Moctezuma in the morning. We will continue the patient's aspirin, Plavix, beta [place], and JOHN inhibitor. We will continue his Moss and other pain medications. We will continue his PPI as well. Further workup based on hospital course. Job ID: [id number]
[2019-05-05] MEDS: Famotidine 20 MG TAB PO SCH ×2 (08:43→08:45)
[2019-05-05] MEDS: HYDROcodone/Acetaminophen 10/325 mg Tablet PO SCH ×2 (08:43→08:45)
[2019-05-05] MEDS: Gabapentin 300 MG CAP PO SCH ×2 (08:43→08:45)
[2019-05-05] MEDS ORDERED: Clopidogrel Bisulfate 75 MG TAB PO SCH (09:00)
[2019-05-05] MEDS ORDERED: Cyanocobalamin (Vitamin B-12) 1,000 MCG TAB PO SCH (09:00)
[2019-05-05] MEDS ORDERED: Lisinopril 2.5 MG TAB PO SCH (09:00)
[2019-05-05] MEDS ORDERED: Aspirin 81 mg Enteric Coated Tablet PO SCH (09:00)
[2019-05-05] MEDS ORDERED: cloNIDine 0.1 MG TAB PO SCH (09:00)
--- NOTE | 2019-05-05 10:57 | CON ---
DATE OF CONSULTATION: 05/05/2019 REASON FOR CONSULTATION: Chest pain. PRIMARY GRAIN ELEVATOR MAN: Luiz Moctezuma MD HISTORY OF PRESENT ILLNESS: Mr. Mayco Noonan is a 63-year-old gentleman, who recently had stent implantation, has had recurrent chest pain. I have been reconsulted. Mr. Noonan was seen by Dr. Moctezuma on 04/20/2019. At that time, the patient was noted to be having chest pain across his chest, sometimes stabbing. In November 2018, he underwent stress testing nuclear medicine, which was normal. He had a cardiac catheterization in 2011, which was normal per the patient. The patient continued to have chest pain, and therefore, he ultimately underwent cardiac catheterization. The cardiac catheterization was done, 04/22/2019. The patient was found to have single-vessel coronary artery disease. He had a critical stenosis in obtuse marginal branch. He had some calcium in the LAD, but no obstructive stenosis. Right coronary is nondominant. The patient had a stent placed. It was a 3.0 x 20 mm drug-coated stent, inflated to 12 atmospheres. The area of stenosis was followed by a small area of poststenotic dilatation that was dilated to 3.25 mm at 14 atmospheres. The patient did well following that. The patient states since the stent was placed, he has had chest pain off and on, sharp. He said he saw Dr. Moctezuma in the office. The patient is complaining of fatigue. He was changed from Brilinta to Plavix. Early yesterday morning about 3 in the morning, he had some recurrent chest pain, severe. It finally went away after about an hour. It was squeezing pain, but also like a sharp, stabbing pain. He went back to sleep, but it came back. He finally came to the emergency room. The patient's EKG here was normal. All the cardiac enzymes have been normal. MEDICATIONS: At home, 1. Lisinopril 2.5 mg a day. 2. Albuterol inhaler. 3. Metoprolol succinate 100 mg a day. 4. Isosorbide 120 mg a day. 5. Hydrocodone. 6. Ranitidine 150 mg twice a day. 7. Aspirin. 8. Atorvastatin 10 mg a day (The patient previously was on Protonix, but taken off that a couple of months ago. His primary care physician wanted to see if he could do without that). The patient is also taking clopidogrel 75 mg a day. REVIEW OF SYSTEMS: CONSTITUTIONAL: No significant weight gain or loss. He is thin. HEENT: Vision, no changes. Hearing, no changes. PULMONARY: No cough or wheezing. GASTROINTESTINAL: No nausea, vomiting, or diarrhea. SKIN: No rashes. NEUROLOGIC: No unilateral weakness or numbness. PSYCHIATRIC: No unusual depression or anxiety. HEMATOLOGIC: No unusual bruising. GENITOURINARY: No burning with urination. GASTROINTESTINAL: He does have a continued esophageal reflux type symptoms, burning. SOCIAL HISTORY: He continues to smoke a few cigarettes per day. When I came by to see him initially, he was actually outside smoking. ALLERGIES: TRAMADOL. PHYSICAL EXAMINATION: GENERAL: This is a pleasant, thin 63-year-old man. VITAL SIGNS: 5 feet 8 inches tall, 131 pounds. HEENT: Eyes, sclerae, nonicteric. Mouth, mucous membranes moist. NECK: Supple. No lymphadenopathy. LUNGS: Clear. CARDIAC: Normal S1, normal S2. There is no murmur, rub, or gallop. ABDOMEN: Thin, soft, nontender. No hepatosplenomegaly. EXTREMITIES: Warm and dry. No clubbing, cyanosis, or edema. GENITOURINARY: The right groin, there is a previous closure device, which is palpable of the femoral artery but there is no bruits heard. No unusual tenderness. SKIN: Warm and dry. PSYCHIATRIC: Mood and affect normal. IMAGING STUDIES: EKGs were all normal. Cardiac enzymes were negative. ASSESSMENT: 1. Chest pain of uncertain etiology. 2. Recent stent implantation. I did review the cardiac catheterization films. The angiographic result was quite good with good step-up and step-down prior to and distal to the stent as is expected. 3. History of esophageal reflux. 4. The patient thought the Brilinta was making him fatigued. PLAN: Discussed going back on Protonix, he is hesitant to do that. I told if he goes back on Protonix, we should probably use Brilinta as Plavix may be interfered with by a Protonix. He prefers to stay on the same medicine and wishes to go home and follow up with Dr. Moctezuma as an outpatient. The patient has not had stent thrombosis with normal EKG and normal cardiac enzymes. The etiology of the pain is unclear. At some point, may consider going back on Protonix, but he wishes to stay with the Pepcid for now. Job ID: [id number]
[2019-05-05 11:28] VITALS: BP 114/67; TEMP 98.5
== END 2019-05-05 13:23 | disposition home or self-care (01) ==
LOC: ERS 10:48 → 2NO 14:31
PROVIDERS: ADMIT Internal Medicine; ATTEND Internal Medicine
DX: R07.89 Other chest pain (principal); I25.10 Atherosclerotic heart disease of native coronary artery without angina pectoris; K21.9 Gastro-esophageal reflux disease without esophagitis; I10 Essential (primary) hypertension; J44.9 Chronic obstructive pulmonary disease, unspecified; I25.2 Old myocardial infarction; G89.4 Chronic pain syndrome; F17.210 Nicotine dependence, cigarettes, uncomplicated; Z79.82 Long term (current) use of aspirin; Z79.02 Long term (current) use of antithrombotics/antiplatelets; Z79.899 Other long term (current) drug therapy; Z88.5 Allergy status to narcotic agent; Z95.5 Presence of coronary angioplasty implant and graft
CPT/HCPCS: 71046; 71275; 80053; 82550; 84484 ×2; 85025; 93005; 94640; 96361; 96374; 96375; 97139; 99285; G0378 ×2; 36415; J2270; J2405; J7620; Q9966

== ENCOUNTER 2019-05-06 15:46 | Outpatient (CLI) | payer MEDICARE ==
--- NOTE | 2019-05-06 16:19 | CT ---
EXAM: CTA of the chest and abdomen HISTORY: Chest pain and back pain; heart stent placed 3 weeks ago COMPARISON: None TECHNIQUE: Multiple contiguous axial images were obtained a CTA of the chest and abdomen with contras t per aortic dissection protocol. Sagittal and coronal 3-D MIP reformats were performed. FINDINGS: HEART: Calcifications in the coronary arteries. PULMONARY ARTERIES: Normal in caliber without filling defects to suggest pulmonary emboli. MEDIASTINUM: No hilar or mediastinal lymphadenopathy. LUNGS: No focal infiltrates or masses. PLEURAL SPACE: No pleural effusion or pneumothorax. CHEST AND ABDOMINAL WALL SOFT TISSUES: Unremarkable LIVER: Unremarkable. GALLBLADDER: Unremarkable. KIDNEYS: Unremarkable. SPLEEN: Unremarkable. PANCREAS: Unremarkable. BOWEL: Unremarkable. RETROPERITONEUM: No lymphadenopathy BONES: Degenerative changes in the spine. ASCENDING THORACIC AORTA: Normal caliber without evidence of dissection or aneurysmal dilatation. DESCENDING THORACIC AORTA: Normal caliber without evidence of dissection or aneurysmal dilatation. ABDOMINAL AORTA: Normal caliber without evidence of dissection or aneurysmal dilatation. Moderate dif fuse nonfocal atherosclerotic disease. CELIAC TRUNK: Patent SMA: Patent KAMILA: Patent RENAL ARTERIES: Bilateral single renal arteries without significant atherosclerotic disease IMPRESSION: No evidence of thoracic or abdominal aortic aneurysm or dissection
== END 2019-05-06 15:47 | disposition home or self-care (01) ==
LOC: BICCT 15:46
PROVIDERS: ATTEND Internal Medicine Cardiovascular Disease
DX: I71.4 Abdominal aortic aneurysm, without rupture (principal); I25.10 Atherosclerotic heart disease of native coronary artery without angina pectoris
CPT/HCPCS: 71275; 74175; Q9966

== ENCOUNTER 2019-05-12 15:42 | Observation (INO) | payer MEDICARE ==
--- NOTE | 2019-05-12 16:12 | RAD ---
EXAM: Single view of the chest HISTORY: Chest pain COMPARISON: 04/19/2019 FINDINGS: Single view of the chest shows a normal sized cardiomediastinal silhouette. There is no shelia dence of consolidation, mass, or pleural effusion. The bones are unremarkable. IMPRESSION: No evidence of acute cardiopulmonary disease
[2019-05-12 16:25] LABS: #Basophils 0.1 thou/uL (0.0-0.2); #Eosinphils 0.1 thou/uL (0.0-0.7); #Lymphocytes 2.4 thou/uL (1.20-3.40); #Monocytes 0.7 thou/uL (0.11-0.59); #Neutrophils 8.9 thou/uL (1.40-6.50); %Basophils 0.4 % (0.0-1.0); %Eosinophils 0.8 % (0.0-10.0); %Lymphocytes 19.4 % (21.0-51.0); %Monocytes 5.9 % (0.0-10.0); %Neutrophils 73.6 % (42.0-75.0); Hemoglobin 10.7 g/dL (14.0-18.0); Mean Corpuscular HGB CONC 33.4 g/dL (32.0-36.0); Mean Corpuscular Hemoglobin 32.9 pg (27.0-31.0); Mean Corpuscular Volume 98.5 fL (78.0-98.0); Platelet Count 251 thou/uL (130-400); RBC Distribution Width 12.7 % (11.5-14.5); Red Blood Cell (RBC) Count 3.24 mill/uL (4.70-6.10); White Blood Cell (WBC) Count 12.1 thou/uL (4.8-10.8)
[2019-05-12 16:32] LABS: PTT 36.5 SEC (22.9-36.1); Prothrombin Time 13.2 SEC (12.0-14.7)
[2019-05-12 16:46] LABS: ALT (SGPT) 8 U/L (8-55); AST (SGOT) 8 U/L (5-34); Albumin 3.7 g/dL (3.4-4.8); Alkaline Phosphatase 61 U/L (40-150); Anion Gap 13 mmol/L (10-20); BUN (Urea Nitrogen) 12 mg/dL (8.4-25.7); Bilirubin, Total 0.3 mg/dL (0.2-1.2); Calc. Creatinine Clearance 0 mL/min (70-130); Calcium 8.3 mg/dL (7.8-10.44); Carbon Dioxide 24 mmol/L (23-31); Chloride 104 mmol/L (98-107); Estimated GFR-MDRD 81; Globulin 1.7 g/dL (2.4-3.5); Glucose 94 mg/dL (80-115); Potassium 3.7 mmol/L (3.5-5.1); Protein, Total 5.4 g/dL (5.8-8.1); Sodium 137 mmol/L (136-145)
[2019-05-12] MEDS ORDERED: Fentanyl 100 MCG/2 ML VIAL ONE (18:22)
[2019-05-12 20:11] VITALS: BMI 19.4
[2019-05-12] MEDS ORDERED: Acetaminophen 325 MG TAB PO PRN (20:36)
[2019-05-12] MEDS ORDERED: Acetaminophen 650 MG Suppository PR PRN (20:36)
[2019-05-12] MEDS ORDERED: Ondansetron ODT 4 MG TAB PO PRN (20:36)
[2019-05-12] MEDS ORDERED: Guaifenesin DM 100-10/5 ML UDCUP PO PRN (20:36)
[2019-05-12] MEDS ORDERED: Ondansetron PF 4 MG/2 ML Vial IVP PRN (20:36)
[2019-05-12] MEDS ORDERED: PROVENTIL INHALER 6.7 G (200 INHALATIONS) INH PRN (20:44)
[2019-05-12] MEDS ORDERED: Famotidine/PF 20 mg/2ml Vial SLOW IVP SCH (21:00)
[2019-05-12] MEDS ORDERED: Atorvastatin Calcium 10 MG TAB PO SCH (21:00)
[2019-05-12] MEDS ORDERED: Non-Formulary Item 1 EACH (Ranitidine Hcl [Ranitidine Hcl] 150 MG) PO SCH (21:00)
[2019-05-12] MEDS ORDERED: HYDROcodone/Acetaminophen 10/325 mg Tablet PO SCH (21:15)
[2019-05-12] MEDS: Gabapentin 300 MG CAP PO SCH (21:21)
[2019-05-12] MEDS ORDERED: Nitroglycerin 0.4 MG TAB (25 Tab Bottle) SL PRN (22:53)
--- NOTE | 2019-05-13 00:02 | HP ---
CHIEF COMPLAINT: Left-sided chest pain. HISTORY OF PRESENT ILLNESS: Mr. Noonan is a 63-year-old man, who presents complaining of crushing left-sided chest pain that started around 1:30 p.m. today. He states he was not doing anything strenuous when the pain started. He denies any radiation down his arm or to his neck. Denies any associated diaphoresis or shortness of breath. He states the pain was approximately 7/10 in severity and eventually ease after approximately 45 minutes. Due to low blood pressure, he was given fentanyl 50 mcg IV push in the ER, which he states brought his discomfort down to 5/10. The patient states he has not experienced pain like this before. He does have known coronary artery disease and has recently undergone a stent placement by Dr. Thomas on April 20, 2019. The stress test was done in November 2018, which was normal. On April 22, 2019, he underwent catheterization with critical stenosis in the obtuse marginal branch and underwent a drug coated stent placement. He had an echo done on April 21, 2019, which showed an EF of 45% to 50% with grade 1/3 diastolic dysfunction, mild tricuspid regurgitation, mitral annular calcification, mild mitral regurgitation and aortic valve sclerosis that opened well. The patient was actually scheduled to see Dr. Moctezuma tomorrow morning. He states he has not had pain like this before. States the pain in the past has been sharp, but this time it is crushing. He states since his discharge on May 05, he has not felt well overall. Last night, he experienced a significant chill and felt very cold, but denies having any fevers. He has a cough at baseline that is productive for clear sputum and denies having any hemoptysis. He denies any shortness of breath, but states he does feel winded whenever he is active. Denies any lower leg swelling or calf tenderness. Has had a good appetite and denies any nausea or vomiting. Reports mild epigastric discomfort associated with his history of GERD, which has not been worse in recent days. Denies any bowel changes or urinary symptoms. All other review of systems are negative. ALLERGIES: TRAMADOL. CURRENT MEDICATIONS: 1. Albuterol. 2. Clonidine. 3. Clopidogrel. 4. Vitamin B12. 5. Diclofenac sodium 1% gel. 6. Gabapentin. 7. Hydrocodone. 8. Ipratropium/albuterol sulfate (DuoNeb). 9. Isosorbide mononitrate. 10. Metoprolol succinate. 11. Pantoprazole. 12. Ranitidine. 13. Aspirin. 14. Atorvastatin. 15. Lisinopril. PAST MEDICAL HISTORY: 1. Chronic neck pain. 2. Coronary artery disease. 3. GERD. 4. Hypertension. 5. COPD. 6. Tobacco use. 7. Previous [place] in 2011. 8. Chronic pain syndrome. PAST SURGICAL HISTORY: 1. Status post stent to with Dr. Moctezuma. 2. Vasectomy. SOCIAL HISTORY: The patient reports smoking half a pack of cigarettes per day. Denies any alcohol use or illicit drug use. PHYSICAL EXAMINATION: GENERAL: The patient appears thin, well-developed, and in no acute distress. VITAL SIGNS: Temperature 97.3, pulse 67, respirations 12, O2 saturation 96% on room air, blood pressure 111/63. HEENT: Normocephalic and atraumatic. Pupils are equal, round, and reactive to light. Sclerae without icterus. Oropharynx is clear. NECK: Supple. No lymphadenopathy. LUNGS: Clear to auscultation bilaterally without any wheezes, rales, or rhonchi. CARDIAC: Regular rate and rhythm. ABDOMEN: Soft, mild epigastric discomfort with palpation. No guarding or rigidity. No palpable masses. No Aguayo sign. No renal angle tenderness. EXTREMITIES: No lower leg swelling or edema. NEUROLOGIC: Alert and oriented x3. SKIN: Without rash or jaundice. LABORATORY DATA: White blood count 12.1, hemoglobin 10.7, platelets 251. PT 13.2, INR 1, PTT 36.5. Sodium 137, potassium 3.7, BUN 12, creatinine 0.94, GFR 81, glucose 94, total bilirubin 0.3, AST 8, ALT 8, alkaline phosphatase 61. Troponin negative x2. BNP 35.2, albumin 3.7. IMAGING DATA: Chest x-ray, May 12, 2019. No evidence of acute cardiopulmonary disease. He had a recent CT angiogram done on May 06, 2019, which showed no evidence of abdominal aortic aneurysm or dissection. IMPRESSION AND PLAN: Mr. Noonan is a 63-year-old man with a history of coronary artery disease, status post recent stent placement on April 20, [address] Moctezuma , who is being referred for management of the followin. Chest pain rule out. Initial and second troponin negative. BNP normal. Chest x-ray unremarkable. Continue to trend troponins. Repeat blood pressure and if improved, and still with chest pain we will nitrostat. We will add on D-dimer. Consult has been placed to Dr. Moctezuma. Urine drug screen requested. 2. Leukocytosis. Possibly reactive, though the patient describes feeling very cold yesterday and having a significant chill. No signs of pneumonia on the chest x- ray. We will add procalcitonin and a respiratory viral testing. We will also add lactic acid. Continue to monitor. He has a low temperature of 97.3, continue to monitor temperature. 3. Coronary artery disease. Resume home medications. 4. Hypertension. Antihypertensives reconciled; however, we will hold as necessary if blood pressure continues to be on the lower side. 5. Gastrointestinal prophylaxis. Resume his home medications, which include Protonix and ranitidine. 6. Deep venous thrombosis prophylaxis with mechanical SCDs. 7. Code status full. Surrogate decision maker is his , Patsy Noonan. The patient's case to be discussed with attending for further recommendations. Job ID: [id number] MTDD
[2019-05-13 05:11] LABS: #Basophils 0.1 thou/uL (0.0-0.2); #Eosinphils 0.3 thou/uL (0.0-0.7); #Monocytes 0.6 thou/uL (0.11-0.59); #Neutrophils 5.8 thou/uL (1.40-6.50); %Basophils 0.7 % (0.0-1.0); %Eosinophils 2.8 % (0.0-10.0); %Lymphocytes 30.7 % (21.0-51.0); %Monocytes 6.6 % (0.0-10.0); %Neutrophils 59.3 % (42.0-75.0); Hemoglobin 11.2 g/dL (14.0-18.0); Mean Corpuscular HGB CONC 32.7 g/dL (32.0-36.0); Mean Corpuscular Hemoglobin 32.3 pg (27.0-31.0); Mean Corpuscular Volume 98.8 fL (78.0-98.0); Mean Platelet Volume 8.3 fL (7.4-10.4); Platelet Count 266 thou/uL (130-400); RBC Distribution Width 12.6 % (11.5-14.5); Red Blood Cell (RBC) Count 3.46 mill/uL (4.70-6.10); White Blood Cell (WBC) Count 9.7 thou/uL (4.8-10.8)
[2019-05-13 05:37] LABS: Anion Gap 10 mmol/L (10-20); BUN (Urea Nitrogen) 9 mg/dL (8.4-25.7); Calc. Creatinine Clearance 77 mL/min (70-130); Calcium 8.5 mg/dL (7.8-10.44); Carbon Dioxide 24 mmol/L (23-31); Cardiac Risk 2.8 (Less than 4.5); Chloride 106 mmol/L (98-107); Cholesterol 159 mg/dl (< 200 Desired); Estimated GFR-MDRD Greater than 90; Glucose 96 mg/dL (80-115); HDL Cholesterol 56 mg/dL (>60 Neg Risk); LDL Cholesterol, Calculated 85 mg/dL; Potassium 3.4 mmol/L (3.5-5.1); Sodium 137 mmol/L (136-145); Triglycerides 92 mg/dL (Less than 150)
[2019-05-13 06:25] LABS: Amphetamine Not Detected (NotDetected); Barbiturates Screen Detected (NotDetected); Benzodiazepine Screen Not Detected (NotDetected); Cocaine Metabolite Screen Not Detected (NotDetected); Medtox Control Line Valid? VALID (VALID); Medtox Reader # READER 4; Methadone Not Detected (NotDetected); Methamphetamine Not Detected (NotDetected); Opiate Screen Detected (NotDetected); Oxycodone Screen Not Detected (NotDetected); Phencyclidine (PCP) Not Detected (NotDetected); THC/Cannabinoid Screen Not Detected (NotDetected); Tricyclic Screen Not Detected (NotDetected)
[2019-05-13 06:26] LABS: Bacteria/HPF None Seen HPF (None Seen); Bilirubin Negative (Negative); Blood, Urine Negative (Negative); Clarity Clear (Clear); Glucose, Urine (Dipstick) Negative (Negative); Hyaline Casts/LPF NONE SEEN LPF (0-3 Hyaline); Leukocyte Negative (Negative); Nitrite Negative (Negative); Protein, Urine (Dipstick) Negative (Neg-Trace); RBC/HPF 0-3 HPF (0-3); Squamous Epithelial None Seen HPF (0-3); Transitional Epithelial NONE SEEN HPF (0-3); Trichomonas/HPF None Seen HPF (None Seen); Urobilinogen 0.2 mg/dL (0.2-1.0); WBC/HPF 0-3 HPF (0-3); Yeast-All Forms None Seen HPF (None Seen)
[2019-05-13 06:27] LABS: Urine Culture Reflex No No
[2019-05-13] MEDS ORDERED: HYDROcodone/Acetaminophen 10/325 mg Tablet PO SCH (09:00)
[2019-05-13] MEDS ORDERED: Aspirin 81 mg Enteric Coated Tablet PO SCH (09:00)
[2019-05-13] MEDS ORDERED: Clopidogrel Bisulfate 75 MG TAB PO SCH (09:00)
[2019-05-13] MEDS ORDERED: cloNIDine 0.1 MG TAB PO SCH (09:00)
[2019-05-13] MEDS ORDERED: Lisinopril 2.5 MG TAB PO SCH (09:00)
--- NOTE | 2019-05-13 09:00 | EKG ---
Test Reason : CP Blood Pressure : / mmHG Vent. Rate : 082 BPM Atrial Rate : 082 BPM P-R Int : 118 ms QRS Dur : 092 ms QT Int : 362 ms P-R-T Axes : 083 077 073 degrees QTc Int : 422 ms Normal sinus rhythm Normal ECG No ST elevation/[place] Confirmed by BROWN WHEATLEY M.D. ([id number]), food expeditor YEIMY SCHWARTZ ([id number] on 05/13/2019 9:00:21 AM Referred By: DIONI Confirmed By:BROWN WHEATLEY M.D.
[2019-05-13] MEDS: Gabapentin 300 MG CAP PO SCH (10:18)
[2019-05-13 12:18] VITALS: BP 117/72; TEMP 98.3
--- NOTE | 2019-05-13 17:33 | CON ---
DATE OF CONSULTATION: 05/13/2019 REASON FOR CONSULTATION: Chest pain. HISTORY OF PRESENT ILLNESS: Mr. Noonan is a pleasant 63-year-old white gentleman, who comes to the hospital for chest pain. He was seen about a month ago, for the same reason he underwent heart catheterization and found to have a critical stenosis of an obtuse marginal branch, so underwent drug-coated stent placement successfully. He did well postoperatively and was discharged home. He was seen again last week on admission for chest pain. I was out that week, so Dr. Thomas saw him for me. He ruled out with negative enzymes, so he was discharged home. Again today, he has very nonspecific findings. He tells me this is similar to his chronic pain. He feels it might be his abdomen more than anything else as his discomfort is mostly epigastric. He has a history of GERD, but takes Zantac only. PAST MEDICAL HISTORY: 1. Coronary artery disease, status post stenting as above. 2. Chronic neck pain. 3. GERD. 4. Hypertension. 5. COPD. 6. Tobacco use. 7. Chronic pain syndrome. PAST SURGICAL HISTORY: 1. Stent to OM by myself just a month ago. 2. Vasectomy. SOCIAL HISTORY: He smokes half a pack cigarettes a day. Continues to smoke. No alcohol or drug use. REVIEW OF SYSTEMS: A 12-point review of systems was done and was all negative unless stated in the history of present illness. MEDICATIONS: Outside medications were reviewed: 1. Clonidine. 2. Ranitidine. 3. Protonix, but he has not been taking this. 4. Metoprolol. 5. Lisinopril. 6. Imdur. 7. DuoNeb. 8. Bland. 9. Gabapentin. 10. Diclofenac. 11. Vitamin B12. 12. Plavix. 13. Lipitor. 14. Aspirin 81. 15. ProAir. ALLERGIES: TRAMADOL. PHYSICAL EXAMINATION: VITAL SIGNS: Temperature 98.3, pulse 97, respiratory rate 20, saturation 94% on room air, and blood pressure 117/72. GENERAL: Awake, alert, and oriented x3, in no distress. HEENT: Normocephalic and atraumatic. NECK: Supple. LUNGS: Clear. CARDIOVASCULAR: S1 and S2. No S3 or S4. No murmurs. ABDOMEN: Soft. Positive bowel sounds. EXTREMITIES: No edema. SKIN: Warm and dry. LABORATORY DATA: Laboratory work was reviewed. CBC, coags, and CMP were all unremarkable except for low potassium at 3.4. UA was negative. EKG was unremarkable. Troponins were negative, completely undetectable x3. ASSESSMENT AND PLAN: 1. Chest pain. Noncardiac. This is most likely related to his chronic pain syndrome. It could also be related to his reflux. We will add Protonix to his regimen prescription strength as he has only been taking Zantac. 2. Since his troponins are completely undetectable, he may be discharged home from the cardiac perspective. 3. His right groin has a small lump. There is no bruit there. This is normal and consistent with recent heart catheterization. This should get better in the next few weeks. If it does not, he has been instructed to come see us in the office. Thank you for letting us to participate in the care of your patient. We will sign off. Please call with any questions. Followup in the office within the next month. Job ID: [id number]
--- NOTE | 2019-05-13 21:15 | DIS ---
DATE OF ADMISSION: 05/12/2019 DATE OF DISCHARGE: 05/13/2019 CONDITION: At the time of discharge, stable and improved. PRIMARY CARE PHYSICIAN: Lisa Aguirre MD DISCHARGE DIAGNOSES: 1. Chest pain noncardiac, atypical in nature. 2. History of chronic obstructive pulmonary disease with ongoing tobacco abuse. 3. Chronic neck pain. 4. Coronary artery disease. 5. Gastroesophageal reflux disease. 6. Hypertension. DISCHARGE MEDICATIONS: Remain the same as admission medication. No changes were made. Please see admission history and physical dictated by Ms. Anais Feliz for complete list dated 05/12/2019. IN-HOUSE CONSULTATION: Cardiology, Luiz Moctezuma MD HISTORY OF PRESENTING ILLNESS: Mr. Noonan is a 63-year-old male with past medical history of coronary artery disease status post recent cardiac stenting by Dr. Thomas on April 20, 2019, who presented to the emergency room with complaints of severe left-sided chest pain. During his last hospitalization, he had a drug-eluting stent placement in [place] obtuse marginal branch. His EF was 45% to 50% at that admission. At the time of presentation to the ER yesterday, the patient was otherwise hemodynamically stable. His cardiac enzyme and EKG and chest x-ray were unremarkable. He was admitted to telemetry under observation status for further evaluation of his chest pain. His BNP was also normal. His home medications were restarted. He had mild leukocytosis of 12.1 upon admission. Please see admission history and physical for further details. HOSPITAL COURSE: The patient remained hemodynamically stable throughout the rest of his hospitalization. He continued to walk all the room and go downstairs to smoke. His cardiac enzyme and EKG, cardiac monitoring, lipid panel, TSH all were unremarkable. Leukocytosis improved. His urine drug screen showed barbiturates and opioids. Urinalysis was clear. D-dimer was less than 0.27. He was seen and evaluated by Dr. Moctezuma from Cardiology, who cleared him for discharge. He recommended starting a proton pump inhibitor as his symptoms were likely secondary to GERD and noncardiac in nature. Protonix prescription was provided to the patient. He will take it twice a day for 2 weeks and once a day and follow up with Cardiology and primary care physician in the outpatient setting. He will resume his aspirin, Plavix, statin, JOHN inhibitor, and beta [place] among other medications. He was seen and examined prior to discharge. He is in no acute distress. Vital signs are stable. Blood pressure 117/72, saturating 94% on room air, heart rate 97. Chest clear to auscultation bilaterally. Rate and rhythm are regular. Groin evaluation shows small nodule in his right groin, which seems to be a chronic reaction to his angiogram done last admission. This was discussed with Dr. Moctezuma, who said that this will spontaneously resolve. Otherwise, there are no new recommendations and he will be discharged. Job ID: [id number]
== END 2019-05-13 14:42 | disposition home or self-care (01) ==
LOC: ERS 15:42 → 2SW 19:31
PROVIDERS: ADMIT Emergency Medicine; ATTEND Emergency Medicine
DX: R07.89 Other chest pain (principal); J44.9 Chronic obstructive pulmonary disease, unspecified; M54.2 Cervicalgia; G89.4 Chronic pain syndrome; I25.10 Atherosclerotic heart disease of native coronary artery without angina pectoris; K21.9 Gastro-esophageal reflux disease without esophagitis; I10 Essential (primary) hypertension; R19.09 Other intra-abdominal and pelvic swelling, mass and lump; I25.2 Old myocardial infarction; D72.829 Elevated white blood cell count, unspecified; F17.210 Nicotine dependence, cigarettes, uncomplicated; Z95.5 Presence of coronary angioplasty implant and graft; Z88.5 Allergy status to narcotic agent; Z79.82 Long term (current) use of aspirin; Z79.899 Other long term (current) drug therapy
CPT/HCPCS: 71045; 80048; 80053; 80061; 80306; 81001; 83605; 83880; 84145; 84443; 84484 ×2; 85025 ×2; 85379; 85610; 85730; 87633; 93005; 94640 ×2; 96361; 96374; 97139; 99285; G0378 ×2; 36415; J3010; J7620

== ENCOUNTER 2019-05-31 15:22 | Emergency (ER) | payer MEDICARE ==
--- NOTE | 2019-06-04 16:21 | EKG ---
Test Reason : Blood Pressure : / mmHG Vent. Rate : 093 BPM Atrial Rate : 093 BPM P-R Int : 118 ms QRS Dur : 080 ms QT Int : 340 ms P-R-T Axes : 075 077 069 degrees QTc Int : 422 ms Normal sinus rhythm Normal ECG #3 Confirmed by BRANDEN SWEET, RICHARD ([id number]), editor city YEIMY SCHWARTZ ([id number]) on 06/04/2019 4:21:21 PM Referred By: Confirmed By:RICHARD OTERO MD
== END 2019-05-31 15:34 | disposition left against medical advice (07) ==
LOC: ERS 15:22
DX: Z53.21 Procedure and treatment not carried out due to patient leaving prior to being seen by health care provider (principal)
CPT/HCPCS: 93005

== ENCOUNTER 2019-05-31 15:39 | Emergency (ER) | payer MEDICARE ==
[2019-05-31 16:34] LABS: Troponin I Less than 0.010 ng/mL (< 0.028)
--- NOTE | 2019-05-31 16:43 | CT ---
CT abdomen and pelvis with IV contrast HISTORY: Abdominal pain. Vomiting. COMPARISON: 05/06/2019. FINDINGS: Emphysematous changes at the lung bases. Solid organs are intact. Prominent calcification t hroughout the arterial structures. Urinary bladder is unremarkable. No enlarged lymph nodes or free fluid. Prominent degenerative changes lumbar spine. Large amount of stool is present throughout the colon and rectum. Fluid filled loops of small bowel a re present throughout the abdomen without transition point. IMPRESSION: Constipation. No evidence of obstruction or inflammation. Atherosclerosis.
--- NOTE | 2019-06-04 16:21 | EKG ---
Test Reason : ERS.AT Blood Pressure : / mmHG Vent. Rate : 090 BPM Atrial Rate : 090 BPM P-R Int : 166 ms QRS Dur : 146 ms QT Int : 402 ms P-R-T Axes : 040 -40 111 degrees QTc Int : 491 ms Demand pacemaker; interpretation is based on intrinsic rhythm Sinus rhythm with occasional Premature ventricular complexes Possible Left atrial enlargement Left axis deviation Left bundle branch block Abnormal ECG #2 Confirmed by BRANDEN SWEET, RICHARD ([id number]), managing editor YEIMY SCHWARTZ ([id number]) on 06/04/2019 4:20:59 PM Referred By: Confirmed By:RICHARD OTERO MD
== END 2019-05-31 17:00 | disposition home or self-care (01) ==
LOC: ERS 15:39
DX: R10.13 Epigastric pain (principal); J44.9 Chronic obstructive pulmonary disease, unspecified; K21.9 Gastro-esophageal reflux disease without esophagitis; I25.2 Old myocardial infarction; F32.9 Major depressive disorder, single episode, unspecified; F17.210 Nicotine dependence, cigarettes, uncomplicated; Z79.899 Other long term (current) drug therapy; Z79.01 Long term (current) use of anticoagulants
CPT/HCPCS: 36415; 71046; 74177; 80053; 82550; 84484; 85025; 93005; 94760; Q9966

== ENCOUNTER 2019-07-20 21:45 | Observation (INO) | payer MEDICARE ==
[2019-07-20] MEDS ORDERED: Ondansetron PF 4 MG/2 ML Vial ONE (22:32)
[2019-07-20 22:35] LABS: #Basophils 0.1 thou/uL (0.0-0.2); #Eosinphils 0.1 thou/uL (0.0-0.7); #Lymphocytes 2.9 thou/uL (1.20-3.40); #Monocytes 0.4 thou/uL (0.11-0.59); #Neutrophils 3.2 thou/uL (1.40-6.50); %Basophils 1.4 % (0.0-1.0); %Eosinophils 1.3 % (0.0-10.0); %Lymphocytes 42.8 % (21.0-51.0); %Monocytes 6.4 % (0.0-10.0); %Neutrophils 48.2 % (42.0-75.0); Hemoglobin 12.4 g/dL (14.0-18.0); Mean Corpuscular HGB CONC 32.9 g/dL (32.0-36.0); Mean Corpuscular Hemoglobin 32.4 pg (27.0-31.0); Mean Corpuscular Volume 98.3 fL (78.0-98.0); Platelet Count 275 thou/uL (130-400); RBC Distribution Width 12.7 % (11.5-14.5); Red Blood Cell (RBC) Count 3.82 mill/uL (4.70-6.10); White Blood Cell (WBC) Count 6.7 thou/uL (4.8-10.8)
[2019-07-20 22:40] LABS: PTT 32.4 SEC (22.9-36.1)
--- NOTE | 2019-07-20 22:45 | CT ---
CT cervical spine noncontrast CT head noncontrast HISTORY: Fall. Head and neck injury. FINDINGS: Vertebral body heights are maintained. Disc space narrowing and minimal degenerative retrol isthesis at the C5-6 level. Disc space narrowing at the C6-7 level. Prominent osteophytosis throughout the cervical spine with significant central canal and foraminal stenoses at multiple level s. Cervicothoracic junction is intact. No acute fracture or dislocation are apparent. There is no evidence of acute intracranial hemorrhage or infarct. The ventricles appear normal in siz e, shape and position. No mass effect or shift of midline structures. Visualized paranasal sinuses remain well aerated. IMPRESSION: Degenerative changes cervical spine. No acute osseous abnormalities are demonstrated. No acute intracranial abnormalities are demonstrated.
[2019-07-20 23:01] LABS: ALT (SGPT) 10 U/L (8-55); AST (SGOT) 12 U/L (5-34); Albumin 4.4 g/dL (3.4-4.8); Alcohol Less than 10 mg/dL (Less than 10); Alkaline Phosphatase 70 U/L (40-150); Anion Gap 13 mmol/L (10-20); BUN (Urea Nitrogen) 15 mg/dL (8.4-25.7); Bilirubin, Total 0.4 mg/dL (0.2-1.2); Calc. Creatinine Clearance 0 mL/min (70-130); Calcium 9.4 mg/dL (7.8-10.44); Carbon Dioxide 24 mmol/L (23-31); Chloride 106 mmol/L (98-107); Estimated GFR-MDRD 73; Globulin 2.1 g/dL (2.4-3.5); Glucose 105 mg/dL (80-115); Potassium 3.5 mmol/L (3.5-5.1); Protein, Total 6.5 g/dL (5.8-8.1); Salicylate Less than 8.0 mg/dL (15.0-30.0); Sodium 139 mmol/L (136-145)
--- NOTE | 2019-07-21 00:10 | CT ---
CT arteriogram chest with IV contrast and 3-D imaging CT arteriogram abdomen with IV contrast and 3-D imaging CT thoracic spine noncontrast HISTORY: Chest and back pain. Abdomen pain. Fall. Chest injury. FINDINGS: There is good contrast opacification of the aorta without intimal flap. No evidence of leak . Good contrast opacification pulmonary arteries. Normal branching of the great vessels at the aortic arch. Calcification throughout the arterial structures. Visceral arteries of the abdomen are p atent. Lungs are hyperinflated with mild peripheral scarring. No mediastinal adenopathy. No evidence of dean l obstruction. Degenerative changes throughout the thoracic spine. Discogenic endplate changes. Vertebral body heigh ts and alignment are maintained. No acute fracture or dislocation. IMPRESSION: No evidence of aortic dissection or aneurysm. Atherosclerosis. Pulmonary hyperinflation. No acute traumatic injury is demonstrated.
[2019-07-21] MEDS ORDERED: Acetaminophen 500 MG TAB ONE (00:12)
[2019-07-21] MEDS ORDERED: Meclizine HCl 25 MG TAB ONE (00:12)
[2019-07-21 02:02] LABS: Troponin I Less than 0.010 ng/mL (< 0.028)
[2019-07-21] MEDS ORDERED: Aspirin Chewable 81 MG TAB ONE ×2 (02:45→03:57)
[2019-07-21 05:00] LABS: Troponin I Less than 0.010 ng/mL (< 0.028)
[2019-07-21 05:45] LABS: Bacteria/HPF None Seen HPF (None Seen); Bilirubin Negative (Negative); Blood, Urine Negative (Negative); Clarity Clear (Clear); Glucose, Urine (Dipstick) Normal (Negative); Leukocyte Negative Leu/uL (Negative); Mucous/LPF 3+ LPF (<2+); Nitrite Negative (Negative); Protein, Urine (Dipstick) 30 mg/dL (Neg-Trace); Squamous Epithelial 0-3 HPF (0-3); Urobilinogen Normal mg/dL (Less than 2); WBC/HPF 0-3 HPF (0-3)
[2019-07-21] MEDS ORDERED: Ketorolac Tromethamine 30 MG/ML VIAL IVP SCH (05:45)
[2019-07-21 05:58] LABS: Amphetamine Not Detected (NotDetected); Barbiturates Screen Detected (NotDetected); Benzodiazepine Screen Detected (NotDetected); Cocaine Metabolite Screen Not Detected (NotDetected); Medtox Control Line Valid? VALID (VALID); Medtox Reader # READER 4; Methadone Not Detected (NotDetected); Methamphetamine Not Detected (NotDetected); Opiate Screen Not Detected (NotDetected); Oxycodone Screen Not Detected (NotDetected); Phencyclidine (PCP) Not Detected (NotDetected); THC/Cannabinoid Screen Not Detected (NotDetected); Tricyclic Screen Detected (NotDetected)
[2019-07-21] MEDS ORDERED: HYDROcodone/Acetaminophen 10/325 mg Tablet PO SCH (09:00)
[2019-07-21] MEDS ORDERED: Clopidogrel Bisulfate 75 MG TAB PO SCH (09:00)
[2019-07-21] MEDS ORDERED: HYDROcodone/Acetaminophen 10/325 mg Tablet ONE (10:10)
[2019-07-21] MEDS ORDERED: Aspirin 81 mg Enteric Coated Tablet ONE (10:12)
[2019-07-21] MEDS ORDERED: Clopidogrel Bisulfate 75 MG TAB ONE (10:12)
[2019-07-21] MEDS ORDERED: Enoxaparin Sodium 40 MG/0.4 ML SYRINGE ONE (10:12)
[2019-07-21] MEDS: Aspirin 81 mg Enteric Coated Tablet PO SCH (10:22)
[2019-07-21] MEDS: Enoxaparin Sodium 40 MG/0.4 ML SYRINGE SC SCH (10:22)
[2019-07-21] MEDS: Gabapentin 300 MG CAP PO SCH ×3 (10:23→21:04)
--- NOTE | 2019-07-21 12:22 | MRI ---
Magnetic resonance angiogram MRA head noncontrast: DATE: 07/21/2019 HISTORY: 63-year-old male with altered mental status (confusion), dizziness, and gait abnormality. TECHNIQUE: 3-D [id number] MRA acquired in multiple axial slabs from slightly inferior to foramen magnum to l evel of bodies of lateral ventricles. Source images and 3-D MIP reconstructions evaluated. FINDINGS: Anterior and posterior circulation major arteries are within normal limits in caliber, with no eviden ce of high-grade stenosis or aneurysm larger than 3 mm. IMPRESSION: Negative
--- NOTE | 2019-07-21 12:28 | MRI ---
EXAM: MRI of the brain without and with contrast HISTORY: Confusion and unsteady gait COMPARISON: None TECHNIQUE: Multiplanar multisequence MR images were obtained of the brain without and with IV contras t. FINDINGS: There are subtle scattered foci of high FLAIR signal in the subcortical and periventricular white mat ter, likely secondary to small vessel ischemic disease. No restricted diffusion. No abnormal enhancement. No hydronephrosis. No extra-axial fluid collection or intracranial hemorrhage. The expected flow voids are present. Corpus callosum, pituitary, and craniocervical junction are within normal limits. The calvarium and overlying soft tissues are unremarkable. The paranasal sinuses and mastoid air cells are well aerated. IMPRESSION: No evidence of acute intracranial abnormality.
--- NOTE | 2019-07-21 12:52 | MRI ---
Magnetic resonance angiogram neck with and without contrast: DATE: 07/21/2019 HISTORY: 63-year-old male with dizziness and gait abnormality. TECHNIQUE: 2-D [id number]-fstyfa in multiple axial slabs. After IV injection of MultiHance gadolinium-based contrast agent, coronal acquisition slab from aorti c arch to skull base. 3-D MIP reconstructions. FINDINGS: All images are degraded by patient motion. The proximal aspects of the bilateral common carotid arter ies and vertebral arteries, cannot be evaluated on this MRA because of severe degradation of images. On the CT angiogram of 05/06/2019, there is no high-grade stenosis involving the brachiocephalic, righ t subclavian, left subclavian, or the proximal portions of bilateral common carotid, and vertebral, arteries. Left vertebral artery is dominant. Multifocal calcified atheromatous plaque are present at multiple locations, including at origin of left vertebral artery where there is mild stenosis, origin of right subclavian artery, and to a lesser degree at origins of the other arteries. This MRA demonstrates tortuosity of the distal cervical portions of the bilateral internal carotid ar teries. No high-grade stenosis is identified in the cervical portions of the common carotid, internal carotid, or vertebral, arteries. IMPRESSION: 1. Atherosclerosis of multiple artery origins. 2. No high-grade stenosis identified.
--- NOTE | 2019-07-21 15:11 | HP ---
REASON FOR ADMISSION: Loss of consciousness. HISTORY OF PRESENT ILLNESS: This is a 63-year-old male patient, who for the past 24 hours has been feeling lightheaded and unsteady on his feet. He goes up a stair and then he has no recollection of what occurred. He remembers only being on the ground. He fell approximately from 3 to 4 feet, hitting his head and losing his consciousness. As per records, his stated that the fall was unwitnessed. She heard him and came to see what happened right after. There was no seizure activity witnessed. The patient did report chest pain throughout the day. The patient was recently admitted for chest pain and he ruled out and was cleared by Cardiology. On reviewing his records, the patient was admitted on May 14 for chest pain and found to be noncardiac, felt to be secondary to his GERD. He had multiple admissions this year for similar presentation. PAST MEDICAL HISTORY: 1. COPD. 2. Coronary artery disease, status post stent placement. 3. GERD. 4. High blood pressure. 5. Previous VT in 2011. 6. Chronic pain syndrome. 7. Chronic neck pain and disk disease. 8. Depression. ALLERGIES: TRAMADOL, WHICH CAUSED HIM SEIZURES. SOCIAL HISTORY: He continues to smoke half a pack a day, does not drink alcohol, and does not use illegal substance. REVIEW OF SYSTEMS: All systems reviewed except for the above mentioned unsteady gait and found to be negative. FAMILY HISTORY: Positive for coronary artery disease. PHYSICAL EXAMINATION: GENERAL: He is awake, alert, and oriented. He does not appear in distress. VITAL SIGNS: His blood pressure is 117/72, heart rate of 97, temperature is 98.3, saturating 94% on room air. HEENT: Head is nontraumatic and normocephalic. Pupils are equally reactive. Extraocular movements are intact. Nonicteric sclerae. Well-injected conjunctivae. Oral mucosa is normal. Nasal mucosa is normal. NECK: Supple. No adenopathy. No murmur. Thyroid is not palpable. Trachea is midline. No supraclavicular lymphadenopathy. HEART: S1 and S2 regular. No murmur. No gallops. No frictional rubs. No displacement of PMI. LUNGS: Clear to auscultation bilaterally. No wheezing. No rhonchi. No crackles. ABDOMEN: Bowel sounds are positive. Nontender abdomen. No hepatosplenomegaly. EXTREMITIES: No lower extremity edema. No cyanosis. NEUROLOGIC: He does have a horizontal nystagmus. Otherwise, cranial nerves appeared to be intact. Normal motor function. Normal sensory function and reflexes. No dysmetria. LABORATORY DATA: Blood work shows a WBC of 6.7, hemoglobin 12.4, platelets of 275. His INR is 1. His sodium is 139, potassium 3.5, BUN 15, and creatinine is 1.03. Urine tox screen is positive for barbiturates, tricyclic, and benzodiazepine. Urinalysis was not showing any evidence of infection. A CT of his chest does not show any evidence of dissection. CT of the cervical spine shows degenerative changes. EKG shows sinus rhythm, septal infarct, and QTc of 426 as per my read. ASSESSMENT AND PLAN: This is a 63-year-old male patient, who is presenting with post-fall loss of consciousness. He has been unsteady on his feet all day yesterday, which drilled out possible central etiology versus benign positional vertigo. 1. Neurology: The patient will be admitted and will undergo frequent neuro checks. We will also do an MRI of the brain and MRA of the neck and head. We will practice permissive hypertension. We will continue with aspirin and Plavix. 2. Cardiac: The patient does have off and on chest pain. He had multiple admissions to this hospital and the pain was deemed to be noncardiac. He has cardiac enzymes done on this admission and so far they have been negative, so we will continue his current antiplatelet therapy. We will hold off on his blood pressure medications for now since we are practicing permissive hypertension. We will reinstate them at some point in 24 hours probably or after the result of his MRI. 3. The patient does have chronic pain syndrome and we will continue with his pain control. 4. For his gastroesophageal reflux disease, he will be on Protonix. 5. For deep venous thrombosis prophylaxis, he will be on Lovenox subcutaneously and sequential compression devices. Job ID: [id number]
[2019-07-21 16:29] VITALS: BMI 19.0
[2019-07-21] MEDS ORDERED: Diclofenac 1% 100 GM GEL TP PRN (17:04)
[2019-07-21] MEDS: Fioricet 325/50/40 mg Tablet PO PRN (19:40)
[2019-07-21] MEDS ORDERED: Atorvastatin Calcium 40 MG TAB PO SCH (21:00)
[2019-07-21] MEDS ORDERED: Atorvastatin Calcium 10 MG TAB PO SCH ×2 (21:00)
[2019-07-21] MEDS: tiZANidine HCl 4 MG TAB PO SCH (21:03)
[2019-07-21] MEDS: HYDROcodone/Acetaminophen 10/325 mg Tablet PO SCH (21:04)
[2019-07-21] MEDS: Famotidine 20 MG TAB PO SCH (21:04)
[2019-07-21] MEDS: PROVENTIL INHALER 6.7 G (200 INHALATIONS) INH PRN (21:19)
[2019-07-22] MEDS: Fioricet 325/50/40 mg Tablet PO PRN ×2 (05:19→12:12)
[2019-07-22 05:27] LABS: Cardiac Risk 2.9 (Less than 4.5)
[2019-07-22] MEDS: PROVENTIL INHALER 6.7 G (200 INHALATIONS) INH PRN (06:25)
[2019-07-22 07:46] VITALS: BP 174/80; TEMP 98.1
[2019-07-22] MEDS: Aspirin 81 mg Enteric Coated Tablet PO SCH (08:29)
[2019-07-22] MEDS: HYDROcodone/Acetaminophen 10/325 mg Tablet PO SCH (08:30)
[2019-07-22] MEDS: Famotidine 20 MG TAB PO SCH (08:30)
[2019-07-22] MEDS: tiZANidine HCl 4 MG TAB PO SCH (08:30)
[2019-07-22] MEDS: Gabapentin 300 MG CAP PO SCH (08:30)
[2019-07-22] MEDS: Enoxaparin Sodium 40 MG/0.4 ML SYRINGE SC SCH (08:34)
[2019-07-22] MEDS ORDERED: Cyanocobalamin (Vitamin B-12) 1,000 MCG TAB PO SCH (09:00)
[2019-07-22] MEDS ORDERED: Lisinopril 2.5 MG TAB PO SCH (09:00)
[2019-07-22] MEDS ORDERED: Clopidogrel Bisulfate 75 MG TAB PO SCH (09:00)
--- NOTE | 2019-07-23 03:03 | DIS ---
DATE OF ADMISSION: 07/21/2019 DATE OF DISCHARGE: 07/22/2019 DISCHARGE DIAGNOSES: As of the following; 1. Syncope. 2. Chronic obstructive pulmonary disease. 3. Coronary artery disease. 4. Previous myocardial infarction. 5. Depression. HOSPITAL COURSE: The patient is 63-year-old male who was presented to the hospital after having a syncopal episode. According to the patient, he was out in his car running around without air conditioning. The patient stated that when he got home, he has 3 large width steps, when he got to the top of the stairs to get into his home, he felt palpitation and dizzy and then the next thing he remember was he was on the floor at the bottom of the 3 stairs. According to the witness, there was no seizure-like activity that was noted. He was brought into the ER. He underwent a charles scan including a cervical spine CT and CT for dissection. Cervical spine CT did not show any acute abnormalities. He also had a CT dissection which again did not show any acute abnormalities. The patient did have a brain MRI and a brain MRA and a neck MRA. The brain MRI, MRA essentially was negative. The neck MRA indicated the patient does have atherosclerosis of multiple artery origins, however, no high-grade stenosis was noted. The patient's orthostatics were checked, they were essentially stable. I did speak with him extensively. He stated that he had been recently started on Lexapro and Seroquel and has been feeling drowsy and dizzy while he has been on the Seroquel. I have advised him to decrease the dose of Seroquel to 25 mg at bedtime since especially he has not been eating very much and actually has been losing some weight. The patient also verbalized that he has been significantly depressed and has been seeing a psychiatrist. He currently does not have any suicidal thoughts or ideations. His troponin x3 were negative. His urine did not show any acute abnormalities. His toxicology indicated barbiturates and benzodiazepines. HOME MEDICATIONS: His home medications will be as of the following. 1. I have changed the Seroquel 50 to 25 mg at bedtime. 2. b.i.d. 3. Isosorbide 120 daily. 4. Metoprolol 100 mg daily. 5. Protonix 40 mg daily. 6. Gabapentin 300 mg b.i.d. 7. Lisinopril 2.5 daily. 8. Atorvastatin 10 mg nightly. 9. Clopidogrel 75 mg daily. 10. Albuterol sulfate, ProAir 2 puffs q.6 hours p.r.n. 11. Tizanidine one tab t.i.d. 12. Fioricet 2 tablets q.6 hours p.r.n. PHYSICAL EXAMINATION: VITAL SIGNS: Temperature 98.1, pulse 66, respirations 20, 95% on room air, blood pressure 143/77. GENERAL: He is awake, alert, and oriented x3. Does not appear in any distress. CV: S1, S2 present. No murmurs, rubs, or gallops. ABDOMEN: Soft and nontender. Bowel sounds are present x2. Again, he will be discharged. He will follow up with his primary care and his psychiatrist. 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 However, he had no arrhythmias while he was in the hospital. Job ID: [id number]
--- NOTE | 2019-07-24 01:28 | EKG ---
Test Reason : ER Blood Pressure : / mmHG Vent. Rate : 079 BPM Atrial Rate : 079 BPM P-R Int : 134 ms QRS Dur : 086 ms QT Int : 374 ms P-R-T Axes : 073 074 075 degrees QTc Int : 428 ms Normal sinus rhythm Septal infarct , age undetermined Abnormal ECG Confirmed by NEAL FELDMAN ([id number]), managing editor SOCO MARTINEZ ([id number]) on 07/24/2019 1:27:28 AM Referred By: Confirmed By:NEAL FELDMAN
== END 2019-07-22 12:16 | disposition home or self-care (01) ==
LOC: ERS 21:45 → ERHOLD 07-21 00:30 → 2SW 07-21 01:17
PROVIDERS: ADMIT Hospitalist; ATTEND Hospitalist
DX: R55 Syncope and collapse (principal); G89.4 Chronic pain syndrome; K21.9 Gastro-esophageal reflux disease without esophagitis; J44.9 Chronic obstructive pulmonary disease, unspecified; I10 Essential (primary) hypertension; I25.10 Atherosclerotic heart disease of native coronary artery without angina pectoris; I25.2 Old myocardial infarction; F17.210 Nicotine dependence, cigarettes, uncomplicated; F32.9 Major depressive disorder, single episode, unspecified; Z79.899 Other long term (current) drug therapy; Z88.5 Allergy status to narcotic agent; Z95.5 Presence of coronary angioplasty implant and graft
CPT/HCPCS: 70450; 70544; 70549; 70553; 71275; 72125; 80053; 80061; 80306; 80307; 84484 ×3; 85025; 85610; 85730; 93005; 94640 ×2; 96361; 96372 ×2; 96374; 97139 ×2; 99285; G0378 ×3; 36415; 81003; 81015; J1650; J1885; J2405; J8597; Q9966

== ENCOUNTER 2019-10-19 04:15 | Observation (INO) | payer MEDICARE ==
[2019-10-19] MEDS: Isosorbide Mononitrate (ER) 30 MG TAB PO SCH (12:18)
[2019-10-19] MEDS: Clopidogrel Bisulfate 75 MG TAB PO SCH (12:18)
[2019-10-19] MEDS: predniSONE 20 MG TAB PO SCH (12:20)
[2019-10-19] MEDS: Losartan 25 MG TAB PO SCH (12:21)
[2019-10-19] MEDS: HYDROcodone/Acetaminophen 10/325 mg Tablet PO PRN ×3 (12:51→21:11)
[2019-10-19] MEDS: cefTRIAXone\\ROCEPHIN 1 GM in Sodium Chloride 0.9% 100 ML IVPB SCH (12:53)
[2019-10-19] MEDS: Benzonatate 100 MG CAP ONE ×3 (13:00→20:13)
[2019-10-19] MEDS ORDERED: Acetaminophen 325 MG TAB PO PRN (13:11)
[2019-10-19] MEDS ORDERED: Ondansetron PF 4 MG/2 ML Vial IVP PRN (13:11)
[2019-10-19] MEDS ORDERED: Ondansetron ODT 4 MG TAB SL PRN (13:11)
[2019-10-19] MEDS ORDERED: Sodium Chloride 0.9% 1,000 ML IV SCH (13:11)
[2019-10-19] MEDS ORDERED: methylPREDNISolone Sod Succ/PF 125 MG/2 ML VIAL IVP SCH (13:15)
--- NOTE | 2019-10-19 13:16 | HP ---
CHIEF COMPLAINT: Shortness of breath and cough. HISTORY OF PRESENT ILLNESS: Mr. Noonan is a pleasant gentleman, who presented to the emergency room complaining of shortness of breath. He has a history of COPD as well as hypertension. He says that in the last few days he has been having strange bout of coughing. He says it is odd and that he is not bringing up any type of phlegm, it is just basically a dry cough that he coughs so much that he starts to choke. He notes an occasional wheeze in between. He also notes some pain in his chest when he takes in a deep breath. As a result of the symptoms, he came to the ER for evaluation. In the ER, he had lab work done as well as a chest x-ray. The x-ray, unfortunately I do not have available to me was reported as being normal without any infiltrate and he is being admitted for possible COPD exacerbation. REVIEW OF SYSTEMS: All systems were reviewed and are negative except for that mentioned in the history of present illness. PAST MEDICAL HISTORY: Significant for COPD, hypertension, gastroesophageal reflux disease, cervical spinal disease, and coronary artery disease. He had a recent stent back in 6 months ago. PAST SURGICAL HISTORY: He has had a vasectomy and a stent placed. ALLERGIES: NO KNOWN DRUG ALLERGIES. SOCIAL HISTORY: Smokes 1 to 2 cigarettes a day. Denies any alcohol use. He is . He does not have any biological children, but has step children. His , Capri Noonan, is his surrogate decision maker. FAMILY HISTORY: Significant for heart disease, coronary artery disease and mother had cancer. CURRENT MEDICATIONS: Include: 1. Imdur 120 mg extended release daily. 2. Metoprolol 100 mg extended release p.o. daily. 3. Lisinopril 20 mg daily. 4. Plavix 75 mg p.o. daily. 5. Protonix 40 mg daily. 6. Zantac as needed. 7. Hydrocodone 10/325 as needed. 8. Gabapentin 300 mg t.i.d. 9. Tizanidine 4 mg as needed. PHYSICAL EXAMINATION: GENERAL: He is alert and oriented. He appears to be in no acute distress. He is well developed and well nourished. VITAL SIGNS: Blood pressure was 129/67, heart rate 82, respiratory rate of 20, and temperature is 97.5. HEENT: Pupils are equal, round, and reactive. Extraocular muscles are intact. Sclerae anicteric. Throat, he is edentulous, no erythema, no exudates. Slightly dry mucous membranes. PULMONARY: He has occasional expiratory wheeze. There are no rhonchi. No rales. CARDIOVASCULAR: He has a normal S1 and S2. There is no S3 or S4. No murmurs, clicks, or rubs. ABDOMEN: Soft. It is nontender and nondistended. Positive for bowel sounds. No rebound. No guarding. No organomegaly. EXTREMITIES: There is no clubbing or cyanosis. No edema. LABORATORY RESULTS: He had a troponin, which was 0.010. Sodium was 139, potassium 4.4, chloride is 102, CO2 is 28, BUN of 19, creatinine 1.01, and glucose is 88. Liver function tests were negative. The lactic acid was 1.19. On his EKG, it was sinus rhythm, the rate was 77 and he had poor R-wave progression from V1 and V2, and this is by my reading. ASSESSMENT: This is a pleasant gentleman, who presents with cough and dyspnea, but it seems this primary concern was the cough. He is on lisinopril and had recently been started on this medication about 6 months ago. I suspect this could possibly be a reaction to the lisinopril and this was discussed with the patient, and we will likely change him to losartan or another ARB. We will also treat for mild chronic obstructive pulmonary disease exacerbation with DuoNebs and steroids and continue his inhaler once these medications have been reconciled. 1. Chest pain. This appears to be musculoskeletal. His troponin is negative, but given his history of coronary artery disease and recent stent, we will continue to trend his troponin and get an echocardiogram. 2. Hypertension. His blood pressure appears to be well controlled at this time. With the exception of the lisinopril, we will reconcile and restart his medications and p.r.n. medicine as needed. Otherwise, the further recommendations depends on the patient's clinical course. Job ID: [id number]
[2019-10-19] MEDS ORDERED: Benzonatate 100 MG CAP PO PRN (13:48)
[2019-10-19 15:40] LABS: CKMB 1.8 ng/mL (0-6.6); Troponin I Less than 0.010 ng/mL (< 0.028)
[2019-10-19 15:42] LABS: ALT (SGPT) 17 U/L (8-55); AST (SGOT) 18 U/L (5-34); Albumin 4.4 g/dL (3.4-4.8); Alkaline Phosphatase 85 U/L (40-110); Anion Gap 13 mmol/L (10-20); BUN (Urea Nitrogen) 19 mg/dL (8.4-25.7); Bilirubin, Total 0.2 mg/dL (0.2-1.2); CK (CPK) 145 U/L (30-200); Calc. Creatinine Clearance 0 mL/min (70-130); Calcium 9.5 mg/dL (7.8-10.44); Carbon Dioxide 28 mmol/L (23-31); Chloride 102 mmol/L (98-107); Estimated GFR-MDRD 74; Globulin 2.4 g/dL (2.4-3.5); Glucose 88 mg/dL (80-115); Potassium 4.4 mmol/L (3.5-5.1); Protein, Total 6.8 g/dL (5.8-8.1); Sodium 139 mmol/L (136-145)
[2019-10-19 15:44] LABS: Lactic Acid 1.2 mmol/L (0.5-2.2)
[2019-10-19] MEDS ORDERED: Azithromycin 250 MG TAB PO SCH (16:45)
[2019-10-19 16:47] LABS: Mean Corpuscular HGB CONC 32.4 g/dL (32.0-36.0); Mean Corpuscular Hemoglobin 31.9 pg (27.0-31.0); Mean Corpuscular Volume 98.3 fL (78.0-98.0); Red Blood Cell (RBC) Count 4.03 mill/uL (4.70-6.10); White Blood Cell (WBC) Count 8.3 thou/uL (4.8-10.8)
[2019-10-19 16:48] LABS: #Basophils 0.1 thou/uL (0.0-0.2); #Eosinphils 0.4 thou/uL (0.0-0.7); #Lymphocytes 2.1 thou/uL (1.20-3.40); #Monocytes 0.6 thou/uL (0.11-0.59); #Neutrophils 5.2 thou/uL (1.40-6.50); %Basophils 1.2 % (0.0-1.0); %Eosinophils 4.3 % (0.0-10.0); %Lymphocytes 25.2 % (21.0-51.0); %Monocytes 6.7 % (0.0-10.0); %Neutrophils 62.5 % (42.0-75.0); Mean Platelet Volume 7.5 fL (7.4-10.4); Platelet Count 391 thou/uL (130-400); RBC Distribution Width 12.7 % (11.5-14.5)
[2019-10-19 16:49] LABS: Hemoglobin 12.8 g/dL (14.0-18.0)
[2019-10-19 17:15] VITALS: BMI 19.8
--- NOTE | 2019-10-19 20:08 | RAD ---
CHEST ONE VIEW: 10/19/19 COMPARISON: 05/12/19 HISTORY: Cough and shortness of breath. FINDINGS: Exam is on the taken list and submitted for official interpretation 10/19/19 at 8:04 p.m. FINDINGS: Normal cardiac silhouette. Hyperinflation with chronic changes. IMPRESSION: No acute cardiopulmonary process. POS: OFF
[2019-10-19] MEDS ORDERED: Atorvastatin Calcium 10 MG TAB PO SCH (21:00)
--- NOTE | 2019-10-19 23:00 | CON ---
DATE OF CONSULTATION: PRIMARY CARE DOCTOR: No PCP provider. PRIMARY STAFF PHARMACIST: Luiz Moctezuma MD REASON FOR CARDIOLOGY CONSULT: Chest pain. HISTORY OF PRESENT ILLNESS: Mr. Noonan is a 64-year-old male with a significant history of coronary artery disease with drug-eluting stent placement in LAD in April 2019, hypertension, COPD, cervical spinal disease, and GERD. The patient underwent stent placement in April 2019. Since then, the patient was doing well. Due to the history of COPD, he has continued having intermittent shortness of breath. Otherwise, the patient was doing well until a couple of days ago when he started having severe cough. He have to cough very hard and sometimes he had to wake up in the middle of the night or he coughed until choking. He started having chest tightness every time after he started coughing. During the initial cardiac assessment, the patient denied any chest pain, dizziness, lightheadedness, or any other cardiac complaints except the chest pain after the cough. The patient underwent cardiac catheterization with drug-eluting stent placement in the LAD in April 2019. The patient's echocardiogram was done in April 2019 with EF 45% to 50%, grade 1 diastolic dysfunction, mild tricuspid regurgitation, mild mitral valve regurgitation. 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 The patient was in hospital in July 2019 with a syncopal episode. He is on Plavix at this moment; however, he is not on aspirin according to the patient. PAST MEDICAL HISTORY: Coronary artery disease with stent placement in April 2019, hypertension, GERD. cervical spinal disease, and COPD. He is on home nebulizer. PAST SURGICAL HISTORY: Vasectomy, stent placement. FAMILY HISTORY: The patient's father and the patient's brother due to myocardial infarction and the patient's mother has a history of cancer. SOCIAL HISTORY: The patient is . The patient does not have children. He is an ex-smoker. He quit 6 months ago. He used to smoke 1 pack a day. He denied EtOH or illicit drug abuse. He drinks 2 cups of coffee and 2 cans of cola every day. He does not do exercise. ALLERGIES: HE IS ALLERGIC TO TRAMADOL. HOME MEDICATIONS: 1. Albuterol/ProAir. 2. DuoNeb. 3. Gabapentin 300 mg twice a day. 4. Metoprolol succinate 100 mg once a day. 5. Isosorbide. 6. Imdur 120 mg once a day. 7. Vitamin B12 1000 mcg once a day. 8. [place] 10 mg/325 mg 1 tablet 3 times a day. 9. Diclofenac sodium 2 g topical every 4 hours 4 times a day as needed. 10. Ranitidine 150 mg twice a day. 11. Atorvastatin 10 mg once a day. 12. Lisinopril 2.5 mg once a day. 13. Plavix 75 mg once a day. 14. Fioricet 2 tablets every 6 hours as needed. 15. Tizanidine 2 mg 1 tablet 3 times a day. 16. Protonix 40 mg once a day. 17. Seroquel 25 mg once a day. REVIEW OF SYSTEMS: 12-point review of systems negative unless otherwise mentioned in the HPI. PHYSICAL EXAMINATION: VITAL SIGNS: Blood pressure 129/74, temperature 97.6, pulse is 80, sinus rhythm, respiratory rate 16, O2 saturation 95% on room air. GENERAL: The patient is alert and oriented x4, not in acute distress. HEENT: Head is normocephalic, atraumatic. Eyes, extraocular muscle movement intact. Wears glasses. ENT and mouth, oral and nasal mucosa moist without lesion. NECK: Supple. Normal range of motion. No JVD. RESPIRATORY: Wheezing and rhonchi to bilateral lower extremity especially to the left lower extremities. CARDIOVASCULAR: Regular rate and rhythm. Normal S1, S2. No S3 or S4. No significant murmur, hives, or thrill noted. 2+ pulses in bilateral upper and lower extremities. No edema in lower extremities. Carotid pulses are present without bruit or thrill. ABDOMEN: Soft, nontender. No mass to palpitate. Bowel sounds are present. SKIN: Warm and dry. No lesion, erythema, or rash noted. MUSCULOSKELETAL: The patient was able to move all extremities. The patient denied claudication. NEUROLOGIC: The patient is alert and oriented x4, nonfocal. PSYCHIATRIC: The patient's mood is appropriate. LABORATORY DATA: WBC 8.3, hemoglobin 12.8, hematocrit 39.6, platelets 391. Chemistry; sodium 139, potassium 4.4, BUN 19, creatinine 1.01, glucose 88. Lactic acid 1.2. AST 18, ALT 17, CK-MB 1.8. Troponin negative. TSH was 1.2387 in April 2019. ASSESSMENT AND PLAN: 1. Atypical chest pain. The patient was doing well. The patient does not have any cardiac complaints until a few days ago when he started having severe cough. He had a chest tightness/pain when he started coughing very hard. Otherwise, he does not have any chest pain. His troponin is negative. The patient had 12-lead EKG showing no ST-segment change or T-wave inversion. The patient's vital signs are stable at this moment. He is on Plavix 75 mg once a day. He is not on aspirin 81 mg once a day. We recommend to resume the aspirin 81 mg once a day with Plavix. He is on metoprolol succinate 100 mg once a day. He is on losartan 25 mg once a day also. 2. Coronary artery disease with stent placement in April 2019. As mentioned above, he is on beta [place], aspirin, Plavix and atorvastatin. The patient's condition is stable at this moment on the telemetry. 3. Hypertension. The patient's blood pressure is stable at this moment with current medication. 4. Hyperlipidemia. He is on statin. 5. Chronic obstructive pulmonary disease. The patient's condition is stable with room air. He is on some breathing treatment. Thank you very much for Cardiology Service to participate in the care of this patient. We will follow along the patient's care team and make further recommendations as appropriate. Job ID: [id number]
[2019-10-20] MEDS: HYDROcodone/Acetaminophen 10/325 mg Tablet PO PRN ×2 (06:44→11:27)
[2019-10-20] MEDS ORDERED: Enoxaparin Sodium 40 MG/0.4 ML SYRINGE SC SCH (09:00)
[2019-10-20] MEDS ORDERED: Aspirin 81 mg Enteric Coated Tablet PO SCH (09:00)
[2019-10-20] MEDS ORDERED: Azithromycin 250 MG TAB PO SCH (09:00)
[2019-10-20] MEDS: cefTRIAXone\\ROCEPHIN 1 GM in Sodium Chloride 0.9% 100 ML IVPB SCH (09:40)
[2019-10-20] MEDS: Losartan 25 MG TAB PO SCH (09:41)
[2019-10-20] MEDS: Clopidogrel Bisulfate 75 MG TAB PO SCH (09:41)
[2019-10-20] MEDS: predniSONE 20 MG TAB PO SCH (09:41)
[2019-10-20] MEDS: Isosorbide Mononitrate (ER) 30 MG TAB PO SCH (09:41)
[2019-10-20 11:26] VITALS: BP 133/88; TEMP 98
--- NOTE | 2019-10-20 11:46 | CON ---
DATE OF CONSULTATION: 10/19/2019 INDICATIONS FOR CONSULTATION: A 64-year-old patient with a history of severe COPD. He has recently had increasing cough and then developed some chest discomfort. He was advised to seek consultation. He was seen in the emergency room. He previously has history of coronary artery disease. He underwent drug-eluting stent in 2019 to the LAD. He had an echocardiogram, which showed mild decrease in left ventricular systolic function with some diastolic dysfunction. He has been followed by Dr. Moctezuma on a relatively routine basis, and at this time is in his hospital bed. He continues to have some coughing, but otherwise appears to be relatively pain-free and appears to be stable. As far as his past medical history, surgical history, family history, review of systems, allergies, and medications, please refer to the notes dictated by my nurse practitioner. PHYSICAL EXAMINATION: GENERAL: An elderly, thin, somewhat chronically ill patient. VITAL SIGNS: Blood pressure was 130/74. He is afebrile. Heart rate is in the 80s and shows a sinus rhythm, respiratory rate 16, and O2 saturations 95% on room air. HEENT: Head is normocephalic and atraumatic. Carotid pulses are present. I did not hear any gross bruits. CHEST: Decreased breath sounds throughout with scattered rhonchi and he has some late expiratory wheezing. CARDIOVASCULAR: Regular rate and rhythm. He has normal S1 and S2. I cannot hear an S3 nor an S4. There were no significant murmurs, heaves, thrills, bruits, or rubs. ABDOMEN: Soft and nontender. No palpable masses. Positive bowel sounds are present. EXTREMITIES: No clubbing or cyanosis. Pedal pulses are present. NEUROLOGIC: The patient appears to be intact. There were no gross focal motor deficits. SKIN: Warm and dry. LABORATORY DATA: Please refer to the notes already dictated. IMPRESSION: 1. Chest pain, somewhat atypical, most likely associated with his coughing due to his chronic obstructive pulmonary disease. Unfortunately, he continues to smoke despite being advised on multiple occasions to stop smoking; however, he does have some nonspecific EKG changes, but enzymes are negative. He has been on his medications. He continues to take Plavix. We will resume his aspirin. 2. Hypertension. We will continue these medications. He had been on I believe an JOHN inhibitor, but this was switched over to an ARB. It should not be the etiology of his coughing, but we certainly can entertain the idea that maybe needs to be switched to a different medicine altogether if he continues to cough, and most likely, his coughing is associated with his chronic obstructive pulmonary disease and chronic obstructive pulmonary disease exacerbation with possible overlying bronchitis or viral illness. 3. Coronary artery disease. This appears to be stable at this time. We will leave further discretion of this up to Dr. Moctezuma when he visits with the patient. 4. Hyperlipidemia. We will continue his present medications. 5. Severe chronic obstructive pulmonary disease. He has been seen by Pulmonology in the past. Unfortunately, he continues to smoke. Further care of the patient will be by Dr. Moctezuma. At this time, from a cardiac standpoint, he appears to be stable. Job ID: [id number]
--- NOTE | 2019-10-20 13:00 | PDOC.CPN ---
- Subjective Date: 10/20/19 Time: 12:58 Interval history: He is doing well. Chest pain with cough only. - Review of Systems General: denies: fever/chills, weight/appetite/sleep changes, night sweats, fatigue Respiratory: reports: cough. denies: congestion, shortness of breath, exercise intolerance Cardiovascular: denies: chest pain, palpitation, edema, paroxysmal nocturnal dyspnea, orthopnea Gastrointestinal: denies: nausea, vomiting, diarrhea, constipation, abd pain, GI bleeding Musculoskeletal: denies: pain, tenderness, stiffness, swelling, arthritis/ arthralgias Neurological: denies: numbness, syncope, seizure, weakness - Objective Allergies/Adverse Reactions: Allergies Allergy/AdvReac Type Severity Reaction Status Date / Time tramadol Allergy Verified 05/12/19 19:54 Visit Medications: Current Medications Hydrocodone Bitart/Acetaminophen ([place] 10/325) 1 tab PO Q4H PRN PRN Reason: Pain Last Admin: 10/20/19 11:27 Dose: 1 tab Albuterol/Ipratropium (Duoneb) 3 ml NEB Q4H PRN PRN Reason: SOB &/or Wheezing Albuterol/Ipratropium (Duoneb) 3 ml NEB [id number] [facility] Last Admin: 10/20/19 07:20 Dose: 3 ml Aspirin (Ecotrin) 81 mg PO DAILY [facility] Last Admin: 10/20/19 09:40 Dose: 81 mg Atorvastatin Calcium (Lipitor) 10 mg PO HS [facility] Last Admin: 10/19/19 21:12 Dose: 10 mg Azithromycin (Zithromax) 250 mg PO DAILY [facility] Last Admin: 10/20/19 09:40 Dose: 250 mg Benzonatate (Tessalon) 100 mg PO Q4H PRN PRN Reason: Cough Clopidogrel Bisulfate (Plavix) 75 mg PO DAILY [facility] Last Admin: 10/20/19 09:41 Dose: 75 mg Enoxaparin Sodium (Lovenox) 40 mg SC 0900 [facility] Last Admin: 10/20/19 09:41 Dose: Not Given Ceftriaxone Sodium 1 gm/ (Sodium Chloride) 100 mls @ 200 mls/hr IVPB DAILY [facility] Last Admin: 10/20/19 09:40 Dose: 100 mls Isosorbide Mononitrate (Imdur Er) 120 mg PO DAILY [facility] Last Admin: 10/20/19 09:41 Dose: 120 mg Losartan Potassium (Cozaar) 25 mg PO DAILY [facility] Last Admin: 10/20/19 09:41 Dose: 25 mg Metoprolol Succinate (Toprol Xl) 100 mg PO DAILY [facility] Last Admin: 10/20/19 09:41 Dose: 100 mg Prednisone (Prednisone) 40 mg PO DAILY [facility] Last Admin: 10/20/19 09:41 Dose: 40 mg Sodium Chloride (Flush - Normal Saline) 10 ml IVF PRN PRN PRN Reason: Saline Flush Vital Signs & Weight: Vital Signs Temp Pulse Resp BP Pulse Ox 10/20/19 11:24 98.0 F 66 16 133/88 97 10/20/19 07:33 97.9 F 71 16 165/79 H 97 10/20/19 07:20 67 18 97 10/20/19 03:37 98.0 F 73 20 138/76 95 10/20/19 01:03 88 16 98 Weight 111 lb 9.6 oz - Physical Exam General: alert & oriented x3 HEENT: mucus membranes moist Neck: supple neck Cardiac: regular rate and rhythm, no murmur Lungs: normal breath sounds Neuro: grossly intact Abdomen: active bowel sounds, soft, non-tender Extremities: no edema Skin: clear Musculoskeletal: no pain - Labs Result Diagrams: 10/19/19 06:00 10/19/19 06:00 Troponin/CKMB CK-MB (CK-2) 1.8 ng/mL (0-6.6) 10/19/19 06:00 Troponin I Less than 0.010 ng/mL (< 0.028) 10/19/19 06:00 - Telemetry Sinus rhythms and dysrhythmias: sinus rhythm - Assessment/Plan Assessment/Plan: 1. Chest pain, non cardiac 2. CAD, stable, no ACS. PLAN: - Continue home regimen. - Will sign off. Please call with any questions.
--- NOTE | 2019-10-21 05:00 | DIS ---
DATE OF ADMISSION: 10/19/2019 DATE OF DISCHARGE: 10/20/2019 DISCHARGE DISPOSITION: Home. DISCHARGE DIAGNOSES: 1. Acute on chronic obstructive pulmonary disease exacerbation. 2. Chronic cough, possibly related to lisinopril. 3. Coronary artery disease. 4. Hypertension. 5. Gastroesophageal reflux disease. DISCHARGE MEDICATIONS: Please note, the patient was taken off lisinopril and placed on losartan as result of his cough. He was also placed on a short steroid taper of 20 mg daily. He is to continue Lipitor 10 mg daily, Zantac 150 mg at bedtime, tizanidine 1 mg t.i.d., Seroquel 50 mg at bedtime, Protonix 40 mg daily, multivitamin once a day, mirtazapine 75 mg at bedtime, Toprol-XL 100 mg daily, Imdur 120 mg daily, [place] 10/325 t.i.d. as needed, Neurontin 300 mg t.i.d., Plavix 75 mg daily, ProAir 2 puffs q.6 as needed. PROCEDURES DONE DURING THIS ADMISSION: The patient had an echocardiogram, in which the ejection fraction was estimated at 55% to 60%. There was grade 1/3 diastolic dysfunction. There was mild distal inferoseptal hypokinesis. CODE STATUS: Full code. ALLERGIES: TO TRAMADOL. HOSPITAL COURSE: Mr. Noonan is a pleasant 64-year-old gentleman, who presented to the emergency room with cough and shortness of breath. He was admitted for COPD exacerbation. The patient, however, said that this COPD exacerbation was a bit different than one he has had in the past in that the cough was not productive. He had been started on an JOHN inhibitor about 6 months ago after he had been diagnosed with coronary artery disease. It is possible that some of his cough could be related to the JOHN inhibitor. For this reason, he was switched to losartan and the lisinopril was discontinued. The patient is to follow up with his primary care physician in approximately 3 days. Job ID: [id number]
== END 2019-10-20 15:08 | disposition home or self-care (01) ==
LOC: ERS 04:15 → INTOOBSV 06:09 → 2NO 06:09
PROVIDERS: ADMIT Internal Medicine; ATTEND Internal Medicine
DX: J44.1 Chronic obstructive pulmonary disease with (acute) exacerbation (principal); R07.89 Other chest pain; I25.10 Atherosclerotic heart disease of native coronary artery without angina pectoris; I10 Essential (primary) hypertension; K21.9 Gastro-esophageal reflux disease without esophagitis; F32.9 Major depressive disorder, single episode, unspecified; G95.9 Disease of spinal cord, unspecified; Z79.899 Other long term (current) drug therapy; Z87.891 Personal history of nicotine dependence; Z88.5 Allergy status to narcotic agent; Z95.5 Presence of coronary angioplasty implant and graft
CPT/HCPCS: 71045; 80053; 82550; 82553; 83605; 84484; 85025; 87040; 93005; 93306; 94640 ×3; 96365; 96375; 96376 ×2; 99285; G0378 ×3; J0696; J3490; J7512; J7620

== ENCOUNTER 2019-11-04 20:05 | Emergency (ER) | payer MEDICARE ==
--- NOTE | 2019-11-04 20:34 | RAD ---
PORTABLE CHEST: 11/04/19 HISTORY: Stabbing chest pain. COMPARISON: 10/19/19 study. Heart size is within normal limits. There are atherosclerotic changes of the aorta. There are chronic lung changes seen without focal infiltrative process. IMPRESSION: Chronic lung change. POS: [facility]
[2019-11-04 20:35] LABS: #Basophils 0.1 thou/uL (0.0-0.2); #Eosinphils 0.2 thou/uL (0.0-0.7); #Lymphocytes 2.3 thou/uL (1.20-3.40); #Monocytes 0.6 thou/uL (0.11-0.59); #Neutrophils 6.9 thou/uL (1.40-6.50); %Basophils 0.7 % (0.0-1.0); %Eosinophils 2.1 % (0.0-10.0); %Lymphocytes 22.9 % (21.0-51.0); %Monocytes 5.7 % (0.0-10.0); %Neutrophils 68.6 % (42.0-75.0); Mean Corpuscular HGB CONC 32.4 g/dL (32.0-36.0); Mean Corpuscular Hemoglobin 31.9 pg (27.0-31.0); Mean Corpuscular Volume 98.4 fL (78.0-98.0); Mean Platelet Volume 7.8 fL (7.4-10.4); Platelet Count 285 thou/uL (130-400); RBC Distribution Width 12.7 % (11.5-14.5); Red Blood Cell (RBC) Count 3.77 mill/uL (4.70-6.10)
[2019-11-04] MEDS ORDERED: Fentanyl 100 MCG/2 ML VIAL ONE (20:47)
[2019-11-04 20:58] LABS: ALT (SGPT) 10 U/L (8-55); AST (SGOT) 13 U/L (5-34); Albumin 4.1 g/dL (3.4-4.8); Alkaline Phosphatase 73 U/L (40-110); Anion Gap 12 mmol/L (10-20); BUN (Urea Nitrogen) 16 mg/dL (8.4-25.7); Bilirubin, Total 0.4 mg/dL (0.2-1.2); Calc. Creatinine Clearance 0 mL/min (70-130); Calcium 9.1 mg/dL (7.8-10.44); Carbon Dioxide 25 mmol/L (23-31); Chloride 100 mmol/L (98-107); Estimated GFR-MDRD 82; Globulin 2.5 g/dL (2.4-3.5); Glucose 85 mg/dL (80-115); Potassium 3.7 mmol/L (3.5-5.1); Protein, Total 6.6 g/dL (5.8-8.1); Sodium 133 mmol/L (136-145)
[2019-11-04] MEDS ORDERED: Albuterol Sulfate 2.5 mg/3 ml Neb ONE (21:38)
[2019-11-04] MEDS ORDERED: methylPREDNISolone Sod Succ/PF 125 MG/2 ML VIAL ONE (22:32)
--- NOTE | 2019-11-08 13:54 | EKG ---
Test Reason : Blood Pressure : / mmHG Vent. Rate : 072 BPM Atrial Rate : 072 BPM P-R Int : 120 ms QRS Dur : 082 ms QT Int : 380 ms P-R-T Axes : 056 070 077 degrees QTc Int : 416 ms Normal sinus rhythm Normal ECG Baseline Artifact Present Confirmed by PEDRO LAI MD [id number]), industrial editor YEIMY SCHWARTZ ([id number] on 11/08/2019 1:54:38 PM Referred By: Confirmed By:PEDRO LAI MD
== END 2019-11-05 00:11 | disposition home or self-care (01) ==
LOC: ERS 20:05
DX: J44.1 Chronic obstructive pulmonary disease with (acute) exacerbation (principal); I25.10 Atherosclerotic heart disease of native coronary artery without angina pectoris; I10 Essential (primary) hypertension; K21.9 Gastro-esophageal reflux disease without esophagitis; I25.2 Old myocardial infarction; F32.9 Major depressive disorder, single episode, unspecified; F17.210 Nicotine dependence, cigarettes, uncomplicated; Z71.6 Tobacco abuse counseling; Z95.5 Presence of coronary angioplasty implant and graft
CPT/HCPCS: 71045; 80053; 84484; 85025; 93005; 94640; 96374; 96375; J2930; J3010; J7611; J7620

== ENCOUNTER 2019-12-13 08:21 | Emergency (ER) | payer MEDICARE ==
--- NOTE | 2019-12-13 09:02 | RAD ---
EXAM: Chest 2 views: HISTORY: Cough COMPARISON: 05/31/2019 FINDINGS: There is a normal-sized cardiomediastinal silhouette. There is no evidence of consolidation, mass, or pleural effusion. The bones are unremarkable. IMPRESSION: No evidence of acute cardiopulmonary disease
[2019-12-13] MEDS ORDERED: Dexamethasone 4 mg/ml Vial ONE (09:53)
== END 2019-12-13 10:15 | disposition short-term general hospital (02) ==
LOC: ERS 08:21
DX: J44.1 Chronic obstructive pulmonary disease with (acute) exacerbation (principal); I25.10 Atherosclerotic heart disease of native coronary artery without angina pectoris; I10 Essential (primary) hypertension; K21.9 Gastro-esophageal reflux disease without esophagitis; I25.2 Old myocardial infarction; F32.9 Major depressive disorder, single episode, unspecified; F17.210 Nicotine dependence, cigarettes, uncomplicated
CPT/HCPCS: 71046; 94640; J1100; J7620

== ENCOUNTER 2019-12-17 20:32 | Emergency (ER) | payer MEDICARE ==
--- NOTE | 2019-12-17 21:00 | RAD ---
Chest AP view INDICATION: Chest pain COMPARISON: November 04, 2019 and December 13, 2019 FINDINGS: Lungs:The lungs are clear. Stable COPD change. Cardiac silhouette:The cardiomediastinal silhouette appears within normal limits. Pulmonary vasculature:Normal Pleural spaces:No pleural effusion or pneumothorax is demonstrated. Upper abdomen:No abnormality seen. Osseous structures: No acute osseous abnormality. Additional findings:None. IMPRESSION: No acute cardiopulmonary abnormality.
[2019-12-17] MEDS ORDERED: Pantoprazole 40 MG VIAL ONE (21:08)
[2019-12-17] MEDS ORDERED: Aspirin Chewable 81 MG TAB ONE (21:08)
[2019-12-17] MEDS ORDERED: Lidocaine Viscous Sol 2% 15 ml UD Cup ONE (21:08)
[2019-12-17] MEDS ORDERED: Morphine 4 MG/ML VIAL ONE (21:08)
[2019-12-17] MEDS ORDERED: Mag-Al 1200 mg/1200 mg/30 ML UDCUP ONE (21:08)
[2019-12-17 21:11] LABS: #Basophils 0.1 thou/uL (0.0-0.2); #Eosinphils 0.1 thou/uL (0.0-0.7); #Lymphocytes 2.1 thou/uL (1.20-3.40); #Monocytes 0.5 thou/uL (0.11-0.59); #Neutrophils 6.4 thou/uL (1.40-6.50); %Basophils 0.9 % (0.0-1.0); %Eosinophils 0.8 % (0.0-10.0); %Lymphocytes 22.6 % (21.0-51.0); %Monocytes 5.6 % (0.0-10.0); %Neutrophils 70.1 % (42.0-75.0); Hemoglobin 12.1 g/dL (14.0-18.0); Mean Corpuscular HGB CONC 31.5 g/dL (32.0-36.0); Mean Corpuscular Hemoglobin 31.3 pg (27.0-31.0); Mean Corpuscular Volume 99.2 fL (78.0-98.0); Platelet Count 333 thou/uL (130-400); RBC Distribution Width 13.1 % (11.5-14.5); Red Blood Cell (RBC) Count 3.88 mill/uL (4.70-6.10); White Blood Cell (WBC) Count 9.2 thou/uL (4.8-10.8)
[2019-12-17 21:34] LABS: ALT (SGPT) 15 U/L (8-55); AST (SGOT) 12 U/L (5-34); Alkaline Phosphatase 76 U/L (40-110); Anion Gap 13 mmol/L (10-20); BUN (Urea Nitrogen) 18 mg/dL (8.4-25.7); Bilirubin, Total 0.2 mg/dL (0.2-1.2); CK (CPK) 94 U/L (30-200); Calc. Creatinine Clearance 0 mL/min (70-130); Calcium 8.6 mg/dL (7.8-10.44); Carbon Dioxide 25 mmol/L (23-31); Chloride 102 mmol/L (98-107); Estimated GFR-MDRD 87; Glucose 91 mg/dL (80-115); Lipase 28 U/L (8-78); Magnesium 2.1 mg/dL (1.6-2.6); Potassium 3.7 mmol/L (3.5-5.1); Sodium 136 mmol/L (136-145)
[2019-12-17 22:50] LABS: Troponin I 0.012 ng/mL (< 0.028)
== END 2019-12-17 23:07 | disposition home or self-care (01) ==
LOC: ERS 20:32
DX: K21.0 Gastro-esophageal reflux disease with esophagitis (principal); R07.89 Other chest pain; I25.10 Atherosclerotic heart disease of native coronary artery without angina pectoris; J44.9 Chronic obstructive pulmonary disease, unspecified; I25.2 Old myocardial infarction; F32.9 Major depressive disorder, single episode, unspecified; F17.210 Nicotine dependence, cigarettes, uncomplicated; Z79.51 Long term (current) use of inhaled steroids
CPT/HCPCS: 36415; 71045; 80053; 82550; 83690; 83735; 83880; 84484; 85025; 93005; 94760; 96361; 96374; 96375; C9113; J2270

== ENCOUNTER 2019-12-29 19:58 | Observation (INO) | payer MEDICARE ==
[2019-12-29 20:24] LABS: #Basophils 0.1 thou/uL (0.0-0.2); #Eosinphils 0.1 thou/uL (0.0-0.7); #Lymphocytes 2.3 thou/uL (1.20-3.40); #Monocytes 0.5 thou/uL (0.11-0.59); #Neutrophils 2.9 thou/uL (1.40-6.50); %Basophils 1.6 % (0.0-1.0); %Lymphocytes 39.4 % (21.0-51.0); %Monocytes 7.7 % (0.0-10.0); %Neutrophils 49.3 % (42.0-75.0); Mean Corpuscular HGB CONC 32.5 g/dL (32.0-36.0); Mean Corpuscular Hemoglobin 32.1 pg (27.0-31.0); Mean Corpuscular Volume 98.7 fL (78.0-98.0); Platelet Count 477 thou/uL (130-400); RBC Distribution Width 13.6 % (11.5-14.5); Red Blood Cell (RBC) Count 4.04 mill/uL (4.70-6.10); White Blood Cell (WBC) Count 5.8 thou/uL (4.8-10.8)
--- NOTE | 2019-12-29 20:30 | RAD ---
Chest AP view INDICATION: Left-sided chest pain COMPARISON: December 17, 2019 FINDINGS: Lungs: The moderate to severe COPD changes stable appearing. Cardiac silhouette: The cardiomediastinal silhouette appears within normal limits. Pulmonary vasculature: Normal Pleural spaces: No pleural effusion or pneumothorax is demonstrated. Upper abdomen: No abnormality seen. Osseous structures: No acute osseous abnormality. Additional findings: None. IMPRESSION: No acute cardiopulmonary abnormality.
[2019-12-29 20:44] LABS: ALT (SGPT) 18 U/L (8-55); AST (SGOT) 20 U/L (5-34); Albumin 4.2 g/dL (3.4-4.8); Alkaline Phosphatase 79 U/L (40-110); Anion Gap 13 mmol/L (10-20); BUN (Urea Nitrogen) 18 mg/dL (8.4-25.7); Bilirubin, Total 0.3 mg/dL (0.2-1.2); Calc. Creatinine Clearance 0 mL/min (70-130); Calcium 9.4 mg/dL (7.8-10.44); Carbon Dioxide 28 mmol/L (23-31); Chloride 101 mmol/L (98-107); Estimated GFR-MDRD 60; Globulin 2.9 g/dL (2.4-3.5); Glucose 90 mg/dL (80-115); Potassium 4.6 mmol/L (3.5-5.1); Protein, Total 7.1 g/dL (5.8-8.1); Sodium 137 mmol/L (136-145)
[2019-12-29] MEDS ORDERED: Morphine 4 MG/ML VIAL ONE (20:56)
[2019-12-30 00:16] LABS: Troponin I Less than 0.010 ng/mL (< 0.028)
[2019-12-30] MEDS ORDERED: Acetaminophen 325 MG TAB PO PRN (01:21)
[2019-12-30] MEDS ORDERED: Acetaminophen 650 MG Suppository PR PRN (01:21)
[2019-12-30] MEDS ORDERED: HYDROcodone/Acetaminophen 5/325 mg Tablet PO SCH (02:00)
--- NOTE | 2019-12-30 02:03 | HP ---
TIME OF ASSESSMENT: 003. CHIEF COMPLAINT: Left-sided chest pain. HISTORY OF PRESENT ILLNESS: Mr. Noonan is a 64-year-old gentleman, with a known history of CAD and COPD, who presents with complaints of left-sided chest pain that started between 5:00 and 6:00 pm. The patient states he was not doing anything strenuous and was resting at the time that it started. He states it was squeezing in nature with recurring stabbing sensations with pain radiating into the left shoulder. The patient reports the pain when stabbing was 10/10 in severity and the squeezing was a 7/10 in severity. It persisted until he arrived to the emergency department. He had an EKG done showing a normal sinus rhythm with a heart rate of 89. He had no ST changes or T-wave abnormalities. He was given 4 mg of morphine. The patient reports that it had been helped his pain, eased by 4/10 in severity. Reports having constant aching on the left side of his chest since then. When asked if he experienced any associated shortness of breath, the patient states he has COPD and always has low-level shortness of breath. He did confirm however that it was not worse from his baseline. Reports having a chronic cough, productive for clear sputum and denies any hemoptysis. No purulent sputum. No recent fevers or chills. He did develop a flu one week ago, which resolved several days ago. He denies having any associated nausea or vomiting. Does have GERD and states this felt different from indigestion. Denies any abdominal pain. All other review of systems are negative. PAST MEDICAL HISTORY: 1. CAD. 2. COPD. 3. Hypertension. 4. GERD. 5. Chronic back pain. 6. History of CA. 7. Depression. PAST SURGICAL HISTORY: 1. Coronary artery stents x1. 2. Vasectomy. SOCIAL HISTORY: The patient denies any alcohol consumption. He does smoke a half a pack per day. Denies any illicit drug use. ALLERGIES: TRAMADOL. CURRENT MEDICATIONS: 1. Prednisone. 2. DuoNebs. 3. Omeprazole. 4. Plavix. PHYSICAL EXAMINATION: GENERAL: The patient appears well developed, well nourished, is in no acute distress. VITAL SIGNS: Temperature 97.5, pulse 66, blood pressure 133/70, respirations 18, O2 saturation 95% on room air. HEENT: Normocephalic and atraumatic. Pupils are equal, round, and reactive to light. Sclerae without icterus. Oropharynx is clear. NECK: Supple. No lymphadenopathy. LUNGS: Notable for mild inspiratory and expiratory wheezing. No crackles. No tachypnea. Normal chest wall expansion. ABDOMEN: Soft, nontender, nondistended with bowel sounds present. No guarding or rigidity. No renal angle tenderness. EXTREMITIES: No lower leg swelling or edema. NEUROLOGIC: Alert and oriented x3. SKIN: Warm and dry. LABORATORY DATA: White count 5.8, hemoglobin 13, hematocrit 39.9, platelets 477, neutrophils 49.3. Sodium 137, potassium 4.6, BUN 18, creatinine 1.22, GFR 60. LFTs unremarkable. Troponin negative x2. Lipase . DIAGNOSTIC STUDIES: Chest x-ray, no acute cardiopulmonary abnormalities. IMPRESSION AND PLAN: Mr. Noonan is a 64-year-old gentleman with a known history of coronary artery disease, chronic obstructive pulmonary disease, hypertension, who presents with complaints of left-sided chest pain radiating to the left shoulder, being admitted for management of the followin. Acute coronary syndrome rule out. EKG showed normal sinus rhythm and troponin negative x2. We will continue to trend troponins. He does have a history of previous stents. He has not had a stress test for a year. He is known to Dr. Moctezuma. He is requesting to be seen by Dr. Moctezuma, agreeable to have a stress test ordered. The patient will remain on continuous cardiac monitoring. We will check lipid panel with morning labs as well as TSH. We will add magnesium and BNP. The patient denies any complaints at present. 2. Hypertension. Monitor blood pressure and resume home medications once verified. 3. Chronic obstructive pulmonary disease. The patient with mild expiratory wheezing, which he states is chronic for him. He uses DuoNebs regularly at home. We will go ahead and order . 4. Gastroesophageal reflux disease. We will resume his home pantoprazole. 5. Chronic back pain. The patient states he is on multiple medications including muscle relaxants and [place]. We will resume home medications once reconciled. 6. Deep venous thrombosis prophylaxis. The patient is ambulatory. 7. Code status, full. Surrogate decision maker is his , Foreign Noonan. Job ID: [id number]
[2019-12-30] MEDS ORDERED: HYDROcodone/Acetaminophen 5/325 mg Tablet ONE (02:10)
[2019-12-30 02:35] LABS: #Basophils 0.1 thou/uL (0.0-0.2); #Eosinphils 0.2 thou/uL (0.0-0.7); #Lymphocytes 2.9 thou/uL (1.20-3.40); #Monocytes 0.6 thou/uL (0.11-0.59); #Neutrophils 2.8 thou/uL (1.40-6.50); %Basophils 1.6 % (0.0-1.0); %Lymphocytes 43.9 % (21.0-51.0); %Neutrophils 42.5 % (42.0-75.0); Hemoglobin 12.8 g/dL (14.0-18.0); Mean Corpuscular HGB CONC 32.3 g/dL (32.0-36.0); Mean Corpuscular Hemoglobin 32.1 pg (27.0-31.0); Mean Corpuscular Volume 99.4 fL (78.0-98.0); Platelet Count 461 thou/uL (130-400); RBC Distribution Width 13.5 % (11.5-14.5); White Blood Cell (WBC) Count 6.5 thou/uL (4.8-10.8)
[2019-12-30 03:00] LABS: Troponin I Less than 0.010 ng/mL (< 0.028)
[2019-12-30 03:11] LABS: Anion Gap 13 mmol/L (10-20); BUN (Urea Nitrogen) 16 mg/dL (8.4-25.7); Calc. Creatinine Clearance 0 mL/min (70-130); Calcium 9.3 mg/dL (7.8-10.44); Carbon Dioxide 26 mmol/L (23-31); Chloride 101 mmol/L (98-107); Estimated GFR-MDRD 79; Glucose 77 mg/dL (80-115); Potassium 4.2 mmol/L (3.5-5.1); Sodium 136 mmol/L (136-145)
[2019-12-30 09:23] VITALS: BMI 18.6
[2019-12-30] MEDS: Famotidine/PF 20 mg/2ml Vial SLOW IVP SCH ×2 (09:36→20:45)
[2019-12-30] MEDS: Aspirin 81 mg Enteric Coated Tablet PO SCH (09:36)
[2019-12-30] MEDS: HYDROcodone/Acetaminophen 10/325 mg Tablet PO PRN (11:02)
[2019-12-30] MEDS ORDERED: Clopidogrel Bisulfate 75 MG TAB PO SCH (11:15)
[2019-12-30] MEDS ORDERED: Isosorbide Mononitrate (ER) 30 MG TAB PO SCH (11:15)
[2019-12-30] MEDS ORDERED: Lisinopril 2.5 MG TAB PO SCH (11:15)
[2019-12-30] MEDS: Fioricet 325/50/40 mg Tablet PO PRN ×2 (13:05→20:45)
[2019-12-30] MEDS ORDERED: Ketorolac Tromethamine 30 MG/ML VIAL IVP SCH (15:00)
[2019-12-30] MEDS ORDERED: Morphine 2 MG/ML SYRINGE SLOW IVP SCH (16:15)
--- NOTE | 2019-12-30 17:07 | PDOC.HOSPP ---
- Subjective Encounter Date: 12/30/19 Encounter Time: 11:00 Subjective: pt up in bed no complains - Objective Vital Signs & Weight: Vital Signs (12 hours) Temp Pulse Resp BP Pulse Ox 12/30/19 13:08 96 12/30/19 13:07 77 20 12/30/19 12:01 98.4 F 77 20 141/89 H 97 12/30/19 11:49 84 12/30/19 09:01 98.0 F 84 16 151/79 H 95 12/30/19 08:03 82 18 96 Weight Weight 122 lb 8 oz I&O: 12/29/19 12/30/19 12/31/19 06:59 06:59 06:59 Intake Total 242 Balance 242 Result Diagrams: 12/30/19 02:27 12/30/19 02:27 Hospitalist ROS - Review of Systems Cardiovascular: denies: chest pain, palpitations, orthopnea, paroxysmal noc. dyspnea, edema, light headedness, other Gastrointestinal: denies: nausea, vomiting, abdominal pain, diarrhea, constipation, melena, hematochezia, other Genitourinary: denies: dysuria, frequency, incontinence, hematuria, retention, other - Medication Medications: Active Medications Generic Name Dose Route Start Last Admin Trade Name Freq PRN Reason Stop Dose Admin Acetaminophen 650 mg 12/30/19 01:21 12/30/19 09:36 Tylenol PO 650 mg Q4H PRN Administration Headache/Fever/Mild Pain (1-3) Acetaminophen/Butalbital/Caffeine 1 tab 12/30/19 09:49 12/30/19 13:05 Fioricet PO 01/04/20 09:50 1 tab Q4H PRN Administration Migraines Hydrocodone Bitart/Acetaminophen 1 tab 12/30/19 09:49 12/30/19 11:02 [place] 10/325 PO 1 tab TIDPRN PRN Administration Moderate Pain (4-6) Albuterol/Ipratropium 3 ml 12/30/19 14:30 12/30/19 14:05 Duoneb NEB Not Given [id number] FARIBA Aspirin 81 mg 12/30/19 09:00 12/30/19 09:36 Ecotrin PO 81 mg DAILY FARIBA Administration Famotidine 20 mg 12/30/19 09:00 12/30/19 09:36 Pepcid SLOW IVP 20 mg Q12HR FARIBA Administration Influenza Virus Vaccine 180 mcg 12/31/19 09:00 12/30/19 10:50 Fluzone High-Dose 2019-20 Syr IM 12/31/19 09:01 Not Given .ONCE ONE Morphine Sulfate 2 mg 12/30/19 16:15 12/30/19 16:57 Morphine SLOW IVP 12/30/19 18:15 2 mg NOW FARIBA Administration - Exam Neck: negative: supple, symmetric, no JVD, no thyromegaly, no lymphadenopathy, no carotid bruit, JVD Heart: negative: RRR, no murmur, no gallops, no rubs, normal peripheral pulses, irregular, diminshed peripheral pulses, murmur present, II/IV, III/IV Respiratory: negative: CTAB, no wheezes, no rales, no ronchi, normal chest expansion, no tachypnea, normal percussion, rales, rhonchi, tachypneic, wheezes Gastrointestinal: negative: soft, non-tender, non-distended, normal bowel sounds , no palpable masses, no hepatomegaly, no splenomegaly, no bruit, no guarding, no rigidity, tender to palpation, distended, diminished bowl sounds, voluntary guarding Hosp A/P (1) Chest pain Code(s): R07.9 - CHEST PAIN, UNSPECIFIED Status: Acute (2) CAD (coronary artery disease) Code(s): I25.10 - ATHSCL HEART DISEASE OF [place] CORONARY ARTERY W/O ANG PCTRS Status: Chronic (3) HTN (hypertension) Code(s): I10 - ESSENTIAL (PRIMARY) HYPERTENSION Status: Chronic - Plan pt up in bed no complains and no chest pain. He recently had a cardiac cath with stent. awaiting cardiology recommendation. will continue home meds.
--- NOTE | 2019-12-30 20:53 | CON ---
DATE OF CONSULTATION: 12/30/2019 REASON FOR CONSULTATION: Chest pain. PRIMARY SIDER MECHANIC: Luiz Moctezuma MD HISTORY OF PRESENT ILLNESS: Mr. Noonan is a pleasant 64-year-old black gentleman, who comes to the hospital for chest pain. He states the pain is on the far left side of his chest. He has a history of COPD and has been had a cold about a week ago. He states he felt he had the flu. He had been coughing quite a bit, a lot more than his chronic cough. He got better, but kept this nagging left-sided chest pain when he coughed. Currently denies any pain, tightness, pressure. PAST MEDICAL HISTORY: 1. Coronary artery disease, status post stenting to the left circumflex. This was in April of 2019. It has been 8 months only with drug-eluting stent. 2. COPD. 3. Hypertension. 4. GERD. 5. Chronic back pain. 6. Depression. PAST SURGICAL HISTORY: 1. Heart catheterization with stent x1, drug-eluting stent in April of last year. 2. Vasectomy. SOCIAL HISTORY: No alcohol. Smokes half pack a day. No drug use. OUTPATIENT MEDICATIONS: 1. Tizanidine. 2. Fioricet. 3. Lisinopril 2.5 mg a day. 4. Atorvastatin 10 mg at bedtime. 5. Albuterol inhaler. 6. Imdur 120 mg a day. 7. DuoNeb. 8. [place]. 9. Plavix 75 mg a day. 10. Toprol-XL 100 mg a day. 11. Protonix. 12. Multivitamin daily. 13. Zantac 150 at bedtime. ALLERGIES: TRAMADOL. REVIEW OF SYSTEMS: A 12-point review of systems was done and was all negative unless stated in the history of present illness. PHYSICAL EXAMINATION: VITAL SIGNS: Temperature 97.9, pulse 78, respiratory rate 18, saturations 94% on room air, blood pressure 122/70. GENERAL: Awake, alert, and oriented x3. No distress. HEENT: Normocephalic and atraumatic. NECK: Supple. LUNGS: Clear. CARDIOVASCULAR: S1 and S2. No S3 or S4. No murmurs. ABDOMEN: Soft. Positive bowel sounds. EXTREMITIES: No edema. SKIN: Warm and dry. Palpation to the left lateral chest reproduces pain. LABORATORY DATA: Laboratory work was reviewed. CBC unremarkable except for a hemoglobin of 12.8. Chemistry is unremarkable. Troponin is undetectable x3. TSH is normal. EKG was unremarkable. ASSESSMENT: 1. Chest pain. Likely musculoskeletal as it is reproducible in far left chest related to cough. 2. Coronary artery disease, stable. No acute coronary syndrome. He is about 8 months from drug-eluting stent and he is compliant with his Plavix and aspirin. PLAN: We will get echocardiogram as that is unremarkable and unchanged from the one in October, he may be discharged home at any point. Thank you for letting us to participate in the care of your patient. We will follow. Job ID: [id number]
[2019-12-30] MEDS ORDERED: Atorvastatin Calcium 10 MG TAB PO SCH (21:00)
[2019-12-31] MEDS: HYDROcodone/Acetaminophen 10/325 mg Tablet PO PRN (07:24)
[2019-12-31] MEDS: Famotidine/PF 20 mg/2ml Vial SLOW IVP SCH (08:33)
[2019-12-31] MEDS: Aspirin 81 mg Enteric Coated Tablet PO SCH (08:33)
[2019-12-31] MEDS ORDERED: Clopidogrel Bisulfate 75 MG TAB PO SCH (09:00)
[2019-12-31] MEDS ORDERED: Lisinopril 2.5 MG TAB PO SCH (09:00)
[2019-12-31] MEDS ORDERED: Isosorbide Mononitrate (ER) 30 MG TAB PO SCH (09:00)
[2019-12-31] MEDS ORDERED: FLU VACC TS2019-20(65YR UP)/PF 180 MCG/0.5 ML SYRINGE IM ONE (09:00)
[2019-12-31] MEDS: Fioricet 325/50/40 mg Tablet PO PRN (10:01)
[2019-12-31 11:42] VITALS: BP 130/76; TEMP 97.8
--- NOTE | 2019-12-31 16:16 | PDOC.CPN ---
- Subjective Date: 12/31/19 Time: 11:00 Interval history: He is doing well. No more chest pain. He wants to go home. - Review of Systems General: denies: fever/chills, weight/appetite/sleep changes, night sweats, fatigue Respiratory: denies: cough, congestion, shortness of breath, exercise intolerance Cardiovascular: denies: chest pain, palpitation, edema, paroxysmal nocturnal dyspnea, orthopnea Gastrointestinal: denies: nausea, vomiting, diarrhea, constipation, abd pain, GI bleeding Musculoskeletal: denies: pain, tenderness, stiffness, swelling, arthritis/ arthralgias Neurological: denies: numbness, syncope, seizure, weakness - Objective Allergies/Adverse Reactions: Allergies Allergy/AdvReac Type Severity Reaction Status Date / Time tramadol Allergy Verified 12/30/19 10:19 Vital Signs & Weight: Vital Signs Temp Pulse Resp BP BP Pulse Ox 12/31/19 11:35 81 15 12/31/19 11:09 97.8 F 87 16 130/76 95 12/31/19 08:33 87 161/80 H 12/31/19 07:12 97.6 F 82 16 139/78 92 L 12/31/19 06:47 79 12 93 L 12/31/19 04:15 80 18 156/67 H 91 L Weight 122 lb 8 oz - Physical Exam General: alert & oriented x3 HEENT: mucus membranes moist Neck: supple neck Cardiac: regular rate and rhythm Lungs: clear to auscultation Neuro: grossly intact Abdomen: active bowel sounds Extremities: no edema Skin: clear Musculoskeletal: no pain - Labs Result Diagrams: 12/30/19 02:27 12/30/19 02:27 Troponin/CKMB Troponin I Less than 0.010 ng/mL (< 0.028) 12/30/19 02:27 - Telemetry Sinus rhythms and dysrhythmias: sinus rhythm - Assessment/Plan Assessment/Plan: 1. Chest pain 2. CAD s/p stent to LAD. PLN: - Echo unchanged form last one in October. - Symptoms atypical and he has ruled out for cardiac issues. I still offered a left heart cath due to recurrence of pain. He states he feels much better and would like to go home as he has not had a heart attack. - Ok to discharge but recommended that if symptoms recur to call 911 and will plan on [facility] if symptoms recur. - Currently being less than a year out of a drug eluting stent I would expect in stent thrombosis that would present as acute MS and not in stent restenosis which would be angina alone. Currently chest pain is reproducible and resolved. Ok to discharge follow up in 1 month in the office.
--- NOTE | 2020-01-02 11:55 | DIS ---
DATE OF ADMISSION: 12/29/2019 DATE OF DISCHARGE: 12/31/2019 DISCHARGE DIAGNOSES: 1. Chest pain. 2. Coronary artery disease, status post stent about eight months ago. 3. Chronic obstructive pulmonary disease, smoker. HOSPITAL COURSE: Patient is a 64-year-old male who presents to the hospital with complaints of chest pain. Patient's troponin x3 were negative. Given his history of recent cardiac catheterization, Cardiology was consulted. He underwent an echocardiogram with the EF 50% to 55%. and he just has mild distal inferoseptal hypokinesis. This was similar to his previous echo. I did speak with Cardiology, who stated that the patient should be discharged home. He will follow up as an outpatient with Cardiology and of course if his symptoms return, recommended him to come back to the hospital. MEDICATIONS: As of the followin. He is going to go home with aspirin 81 mg daily. 2. Plavix 75 mg daily. 3. Atorvastatin 10 mg at bedtime. 4. Lisinopril 2.5 daily. 5. He is on Protonix 40 mg twice a day. 6. Metoprolol-XL 100 mg daily. 7. Ipratropium as needed. 8. Hydrocodone for pain. PHYSICAL EXAMINATION: VITAL SIGNS: Are as of the following; temperature 97.8, 87, 16, 95% on room air, and 130/76. GENERAL: He is awake, alert, and oriented x3. Does not appear in distress. CV: S1, S2 present. No murmurs, rubs, or gallops. Again, he will be discharged home. He will follow up with his primary. Job ID: [id number]
--- NOTE | 2020-01-05 16:57 | EKG ---
Test Reason : Blood Pressure : / mmHG Vent. Rate : 089 BPM Atrial Rate : 089 BPM P-R Int : 118 ms QRS Dur : 094 ms QT Int : 348 ms P-R-T Axes : 065 066 073 degrees QTc Int : 423 ms Normal sinus rhythm Normal ECG Confirmed by YOKO MCDONALD DO ([id number]), editorial cartoonist YEIMY SCHWARTZ ([id number]) on 01/05/2020 4:57:31 PM Referred By: Confirmed By:YOKO MCDONALD DO
== END 2019-12-31 13:33 | disposition home or self-care (01) ==
LOC: ERS 19:58 → ERHOLD 23:31 → 2SW 12-30 09:15
PROVIDERS: ADMIT Internal Medicine; ATTEND Internal Medicine
DX: R07.9 Chest pain, unspecified (principal); J44.9 Chronic obstructive pulmonary disease, unspecified; I10 Essential (primary) hypertension; I25.10 Atherosclerotic heart disease of native coronary artery without angina pectoris; F17.210 Nicotine dependence, cigarettes, uncomplicated; K21.9 Gastro-esophageal reflux disease without esophagitis; F32.9 Major depressive disorder, single episode, unspecified; G89.29 Other chronic pain; M54.9 Dorsalgia, unspecified; Z88.5 Allergy status to narcotic agent; Z79.899 Other long term (current) drug therapy; Z95.5 Presence of coronary angioplasty implant and graft
CPT/HCPCS: 71045; 80048; 80053; 83690; 83735; 84443; 84484 ×3; 85025 ×2; 93005; 93306; 94640 ×4; 94760 ×2; 96372; 96374; 96376 ×2; 99285; G0378 ×2; 36415; J1885; J2270; J7620; S0028

== ENCOUNTER 2020-01-11 21:23 | Inpatient (IN) | payer MEDICARE ==
[2020-01-11] MEDS ORDERED: Aspirin Chewable 81 MG TAB ONE (21:41)
[2020-01-11] MEDS ORDERED: Nitroglycerin 0.4 MG TAB 1 EACH ONE (21:41)
[2020-01-11 21:56] LABS: #Basophils 0.1 thou/uL (0.0-0.2); #Eosinphils 0.2 thou/uL (0.0-0.7); #Lymphocytes 3.1 thou/uL (1.20-3.40); #Monocytes 0.5 thou/uL (0.11-0.59); #Neutrophils 2.7 thou/uL (1.40-6.50); %Basophils 2.1 % (0.0-1.0); %Eosinophils 3.6 % (0.0-10.0); %Lymphocytes 46.4 % (21.0-51.0); Hemoglobin 12.8 g/dL (14.0-18.0); Mean Corpuscular HGB CONC 33.1 g/dL (32.0-36.0); Mean Corpuscular Hemoglobin 33.3 pg (27.0-31.0); Mean Platelet Volume 7.9 fL (7.4-10.4); Platelet Count 382 thou/uL (130-400); RBC Distribution Width 13.6 % (11.5-14.5); Red Blood Cell (RBC) Count 3.85 mill/uL (4.70-6.10); White Blood Cell (WBC) Count 6.8 thou/uL (4.8-10.8)
--- NOTE | 2020-01-11 22:08 | RAD ---
Portable frontal chest radiograph: 01/11/2020 COMPARISON: 12/29/2019 HISTORY: Chest pain FINDINGS: No pneumothorax or pleural fluid. No focal consolidation or alveolar edema. Heart and media stinal contours are stable. Stable increased linear interstitial density. IMPRESSION: Chronic findings as detailed above. No acute findings seen.
[2020-01-11] MEDS ORDERED: Nitroglycerin 2% Ointment 1 INCH/1 GM Packet ONE (22:12)
[2020-01-11] MEDS ORDERED: Morphine 4 MG/ML VIAL ONE (22:12)
[2020-01-11 22:16] LABS: ALT (SGPT) 14 U/L (8-55); AST (SGOT) 20 U/L (5-34); Albumin 4.3 g/dL (3.4-4.8); Alkaline Phosphatase 90 U/L (40-110); Anion Gap 12 mmol/L (10-20); BUN (Urea Nitrogen) 13 mg/dL (8.4-25.7); Bilirubin, Total 0.3 mg/dL (0.2-1.2); CK (CPK) 203 U/L (30-200); Calc. Creatinine Clearance 0 mL/min (70-130); Calcium 9.2 mg/dL (7.8-10.44); Carbon Dioxide 26 mmol/L (23-31); Chloride 100 mmol/L (98-107); Estimated GFR-MDRD 58; Globulin 2.6 g/dL (2.4-3.5); Glucose 79 mg/dL (80-115); Protein, Total 6.9 g/dL (5.8-8.1); Sodium 134 mmol/L (136-145)
[2020-01-11] MEDS ORDERED: Ondansetron PF 4 MG/2 ML Vial ONE (22:18)
[2020-01-11] MEDS ORDERED: Heparin 25,000 units/D5W 500 ML IV SCH (23:45)
[2020-01-11] MEDS ORDERED: Nitroglycerin 50 MG/250 ML BOT 250 ML IVPB SCH (23:45)
[2020-01-11] MEDS ORDERED: Heparin 10,000 UNITS/ 10 ML VIAL SLOW IVP SCH (23:45)
[2020-01-12] LABS: INR-International Normal Ratio 0.9; PTT 30.9 SEC (22.9-36.1); Prothrombin Time 11.6 SEC (12.0-14.7)
[2020-01-12 00:27] VITALS: BMI 18.8
[2020-01-12] MEDS ORDERED: Acetaminophen 325 MG TAB PO PRN (01:01)
[2020-01-12] MEDS ORDERED: hydrALAZINE 20 MG/ML VIAL SLOW IVP PRN (01:01)
[2020-01-12] MEDS: Morphine 2 MG/ML SYRINGE SLOW IVP PRN ×2 (01:26→06:09)
--- NOTE | 2020-01-12 01:29 | HP ---
CHIEF COMPLAINT: Chest pain. HISTORY OF PRESENT ILLNESS: Mr. Noonan is a pleasant 64-year-old gentleman, who has a history of coronary artery disease. He was actually recently seen in our hospital for an episode of chest pain. He was discharged on the of this same month. At that time, he had an echocardiogram which was significant for some diastolic dysfunction. His ejection fraction was normal and it was recommended that he proceed with a cardiac catheterization given the characteristics of his chest pain. However, the patient refused at that time and the plan was for him to follow up with Dr. Moctezuma in the outpatient setting to have this scheduled. However, on the day of admission, a few hours prior to coming to the hospital, he started having chest pain at home. He says that it is on the left side and he gives the Valentine's sign. He says that it moves up to his jaw and he has feelings of a bit of lightheadedness off and on. He denies any dizziness, nausea, or vomiting. No diaphoresis, but he does say that at its worst it is 10/10. As a result, he came back to the ER for evaluation. He continued to have chest pain despite having nitro paste placed as well as been given an aspirin. He has therefore been moved to the ICU and placed on a nitroglycerin drip and further recommendations to follow. REVIEW OF SYSTEMS: All systems were reviewed and are negative, except for that mentioned in the history of present illness. PAST MEDICAL HISTORY: Significant for coronary artery disease, COPD, hypertension, gastroesophageal reflux disease, chronic low back pain, and depression. PAST SURGICAL HISTORY: He has had coronary stent placed about a year ago and also has a history of vasectomy. ALLERGIES: TO TRAMADOL. SOCIAL HISTORY: He is . His , Patsy, also known as Capri, is his surrogate decision maker. He would like to be a full code. He is a nondrinker. Does not use any drugs, but does admit to smoking a half a pack a day and he smoked for at least five years. FAMILY HISTORY: Significant for heart disease and cancer. CURRENT MEDICATIONS: Include; 1. Supplemental vitamins. 2. Tizanidine 2 mg as needed. 3. Protonix 40 mg daily. 4. Isosorbide mononitrate 120 mg daily. 5. Metoprolol extended release 100 mg daily. 6. Lisinopril, not sure of the dose. 7. Lipitor 10 mg daily. 8. Plavix 75 mg daily. 9. Aspirin 81 mg daily. 10. [place] 10/325 three times a day. 11. He says he uses several inhalers. He cannot remember the names. PHYSICAL EXAMINATION: GENERAL: He is alert and oriented. He appears to be in no acute distress. He is a bit thin and frail and chronically ill in appearance. VITAL SIGNS: The blood pressure was 124/70, heart rate in the 80s, respiratory rate is 16, and he is afebrile. HEENT: Pupils are equal, round, and reactive. Extraocular muscles are intact. His sclerae are anicteric. Throat, no erythema, no exudates. NECK: No adenopathy. No bruits. LUNGS: Clear to auscultation. There is no wheezing. No rales, no rhonchi. CARDIOVASCULAR: He has a normal S1 and S2. There is no S3 or S4. No murmurs, clicks, or rubs. ABDOMEN: Soft, nontender, and nondistended. Positive for bowel sounds. No rebound. No guarding. No organomegaly. EXTREMITIES: There is no clubbing or cyanosis. No edema. NEUROLOGIC: The exam is nonfocal. SKIN and INTEGUMENT: No skin changes. No rash. LABORATORY RESULTS: Sodium 134, potassium 4.0, chloride is 100, CO2 is 26, BUN of 13, creatinine 1.25, and glucose is 79. Troponin is less than 0.010. CBC; the white blood cell count 6.8, hemoglobin is 12.8, hematocrit is 38.7, and platelet count is 382. On his EKG, it is sinus rhythm, the rate is 65 and there are no acute ST wave changes and that is by my reading. He had a chest x-ray and it shows it is bit hyperinflated. Heart size is normal. Slight increased pulmonary vascular markings, but otherwise no acute process. This is also by my reading. ASSESSMENT: 1. This is a pleasant 64-year-old gentleman, who presents to the ER with chest pain. He has a known history of coronary artery disease. His symptoms are very suspicious for possible acute coronary syndrome or unstable angina. I agree with admission to the ICU. Cardiology has already been contacted from the ER. He has been placed on a nitroglycerin drip, which we will continue as well as aspirin and a heparin drip. We will continue a beta-carolina as tolerated and Cardiology will be consulted in the a.m. Also, supplemental oxygen, morphine will be utilized. 2. Chronic obstructive pulmonary disease. We will need to reconcile and restart his home medications as well as Gogo albrecht Job ID: [id number]
[2020-01-12 01:53] LABS: Troponin I Less than 0.010 ng/mL (< 0.028)
[2020-01-12 04:03] LABS: Band 1 % (5-11); Eosinophils 5 % (0-10); Lymphocytes 46 % (21-51); MDiff Complete? YES; Mean Corpuscular HGB CONC 32.9 g/dL (32.0-36.0); Mean Corpuscular Hemoglobin 32.9 pg (27.0-31.0); Mean Corpuscular Volume 99.9 fL (78.0-98.0); Mean Platelet Volume 7.8 fL (7.4-10.4); Monocytes 3 % (0-10); Neutrophil 37 % (42-75); Platelet Count 349 thou/uL (130-400); Platelet Morphology Comment Appears Adequate; RBC Distribution Width 13.5 % (11.5-14.5); Reactive Lymphocytes 8 % (0-10); Red Blood Cell (RBC) Count 3.34 mill/uL (4.70-6.10); White Blood Cell (WBC) Count 7.4 thou/uL (4.8-10.8)
[2020-01-12 04:07] LABS: Anion Gap 12 mmol/L (10-20); BUN (Urea Nitrogen) 13 mg/dL (8.4-25.7); Calc. Creatinine Clearance 69 mL/min (70-130); Calcium 8.5 mg/dL (7.8-10.44); Carbon Dioxide 25 mmol/L (23-31); Chloride 104 mmol/L (98-107); Estimated GFR-MDRD 90; Glucose 88 mg/dL (80-115); Potassium 4.6 mmol/L (3.5-5.1); Sodium 136 mmol/L (136-145)
[2020-01-12 04:29] LABS: Troponin I 0.016 ng/mL (< 0.028)
[2020-01-12] MEDS ORDERED: Ondansetron PF 4 MG/2 ML Vial SLOW IVP PRN ×2 (05:21)
--- NOTE | 2020-01-12 07:25 | PDOC.PULCN ---
Addendum entered and electronically signed by Kirsten Denton MD 01/12/20 07:50 : Typical chest pain 2/2 unstable angina vs. GERD - Continue heparin & nitro gtt pending cards recs & evaluation. Story very suspicious for ACS; however, troponins WNLs x3 & no acute ST changes other than peaked T waves noted on EKG. Unstable angina w/o NSTEMI still very likely as well given history. - Patient also admitted to abdominal pain in addition to substernal pain with nausea that he had yesterday & has a h/o GERD so primary team to give GI cocktail now. - Repeat EKG w/ troponins & PRN morphine & zofran should CP & nausea return. Original Note: Pulmonology Consult: HPI - Date of Consult Date: 01/12/20 Time: 07:20 - Consult Details Reason for Consult: ICU admission/CP on heparin drip Requesting Physician: Go - History of Present Illness HPI: JOVANA BEEBE is a 64 year-old M 64YOM with a PMH significant for COPD, CAD s/p LAD stent placement ~ 1 year ago , & HTN who presented to the ED with a CC of sudden onset substernal CP last night at home. Reports the pain began while he was laying at home and was pressure-like with radiation into his left jaw. The patient was given ASA & nitropaste in the ED but his CP continued so he was admitted to the ICU on a heparin & nitro drip per cards recs. Cards to see this AM. Patient denies any CP , N/V, SOB or lightheadedness this AM. Pulmonology Consult: ROS - Review of Systems Constitutional: negative: fever, chills Cardiovascular: negative: chest pain, light headedness Respiratory: negative: cough, short of breath Pulmonology Consult: PMH Source: patient Past Medical History: HTN, COPD, GERD, CAD s/p stent placement, chronic back pain 2/2 spinal cord injury, depression - Family History Pertinent family history: heart disease in multiple family members - Social History Smoking Status: Current every day smoker, Smokes 0-10 cigs daily, Other (smoked 1.5 ppd for ~50 years before cutting back) Alcohol Use: none Drug Use History: none Living Situation: Pulmonology Consult: Meds - Medications MAR Reviewed: Yes Medications: Current Medications Acetaminophen (Tylenol) 650 mg PO Q4H PRN PRN Reason: Headache/Fever/Mild Pain (1-3) Albuterol/Ipratropium (Duoneb) 3 ml NEB Q4H PRN PRN Reason: SOB &/or Wheezing Albuterol/Ipratropium (Duoneb) 3 ml NEB B5BU-CS [facility] Atorvastatin Calcium (Lipitor) 10 mg PO HS [facility] Clopidogrel Bisulfate (Plavix) 75 mg PO DAILY [facility] Heparin Sodium (Porcine) (Heparin 1,000 Units/Ml (10 Ml)) 0 units SLOW IVP [facility] Last Admin: 01/12/20 00:32 Dose: 3,402 units Hydralazine HCl (Apresoline) 10 mg SLOW IVP Q4H PRN PRN Reason: SBP > 180 and HR < 70 Heparin Sodium/Dextrose (Heparin 25,000 Units/D5w 500 Ml) 500 mls @ 0 mls/hr IV INF FARIBA; Protocol Last Admin: 01/12/20 00:38 Dose: 500 mls Nitroglycerin/Dextrose (Nitroglycerin 50 Mg/250 Ml Bot) 250 mls @ 0 mls/hr IVPB INF FARIBA; Protocol Last Admin: 01/12/20 00:31 Dose: 250 mls Metoprolol Succinate (Toprol Xl) 100 mg PO DAILY [facility] Mometasone Furoate/Formoterol Fumar (Dulera 100 Mcg/5 Mcg Inhaler) 1 puff INH BID-RT [facility] Morphine Sulfate (Morphine) 2 mg SLOW IVP Q4H PRN PRN Reason: Chest Pain Last Admin: 01/12/20 06:09 Dose: 2 mg Ondansetron HCl (Zofran) 4 mg SLOW IVP Q6H PRN PRN Reason: Nausea/Vomiting Last Admin: 01/12/20 05:22 Dose: 4 mg Pantoprazole Sodium (Protonix) 40 mg PO BID [facility] Pneumococcal 13-Valent Conj Vacc (Prevnar) 0.5 ml IM .ONCE ONE Stop: 01/12/20 09:01 Sodium Chloride (Flush - Normal Saline) 10 ml IVF PRN PRN PRN Reason: Saline Flush - Allergies Allergies/Adverse Reactions: Allergies Allergy/AdvReac Type Severity Reaction Status Date / Time tramadol Allergy Verified 01/12/20 00:39 Pulmonology Consult: PE - Physical Exam Constitutional: NAD HEENT: moist MMs Neck: supple, full ROM Cardiovascular: RRR, no significant murmur Respiratory: clear to auscultation anteriorly, clear to auscultation bilaterally. negative: accessory muscle use, decreased breath sounds, respiratory distress Gastrointestinal: no distention, positive bowel sounds Musculoskeletal: no edema, pulses present Neurological: non-focal, moves all 4 limbs Psychiatric: normal affect, A&O x 3 Skin: no rash, normal turgor, cap refill <2 seconds Pulmonology Consult: Results - Labs Result Diagrams: 01/12/20 03:36 01/12/20 03:30 - EKG Data EKG Interpreted by Myself (slight ST elevation in leads V2-V5 with diffusely peaked T waves) Rate: bradycardia - Radiology Interpretation Chest x-ray Status: image reviewed by me, report reviewed by me (No acute findings) Pulmonology Consult: A/P - Problem (1) GERD (gastroesophageal reflux disease) Current Visit: Yes Code(s): K21.9 - GASTRO-ESOPHAGEAL REFLUX DISEASE WITHOUT ESOPHAGITIS Status: Chronic (2) Chest pain Current Visit: No Code(s): R07.9 - CHEST PAIN, UNSPECIFIED Status: Acute (3) CAD (coronary artery disease) Current Visit: No Code(s): I25.10 - ATHSCL HEART DISEASE OF PLATINUM CORONARY ARTERY W/O ANG PCTRS Status: Chronic (4) COPD (chronic obstructive pulmonary disease) Current Visit: No Status: Chronic (5) Chronic pain Current Visit: No Code(s): G89.29 - OTHER CHRONIC PAIN Status: Chronic (6) HTN (hypertension) Current Visit: No Code(s): I10 - ESSENTIAL (PRIMARY) HYPERTENSION Status: Chronic Qualifiers: Hypertension type: essential hypertension Qualified Code(s): I10 - Essential (primary) hypertension - Time Time: 50% of the time was spent in coordination of care (as documented) at patient's floor/unit and/or counseling patient. Time with Patient: greater than 50 minutes - Plan Plan: 64YOM with a PMH significant for CAD s/p stent placement, HTN & COPD who presented to the ED 2/2 typical chest pain that began yesterday at home and was admitted to the ICU for suspected ACS. Typical chest pain 2/2 ACS vs. GERD - Continue heparin & nitro gtt pending cards recs & evaluation. Story very suspicious for ACS; however, troponins WNLs x3 & no acute ST changes other than peaked T waves noted on EKG. Patient also admitted to abdominal pain in addition to substernal pain with nausea that he had yesterday & has a h/o GERD. - Repeat EKG w/ troponins & PRN morphine & zofran should CP & nausea return. - GI cocktail now per primary team. CAD s/p LAD stent placement - Resume home meds once able to take PO. COPD - Not in acute exacerbation. Needs pulm follow-up as an outpatient. PRN Duonebs. GERD - Resume home meds once tolerating PO. HTN - On nitro gtt for now so BPs low to NL. Resume home meds pending cards recs & clinical course. Tobacco use - Will encourage cessation. Dr. Blakely's addendum seen and examined. agree with above
[2020-01-12] MEDS ORDERED: Sodium Chloride 0.9% (PF) 10 ML VIAL FS PRN (07:27)
[2020-01-12] MEDS ORDERED: Lidocaine 2% Viscous Solution 20 ML, Aluminum & Magnesium Hydroxide 30 ML, Donnatal Eli... SSW SCH (07:30)
[2020-01-12] MEDS: Pantoprazole 40 MG VIAL IVP SCH ×2 (07:32→20:42)
[2020-01-12] MEDS: Mometasone/Formoterol 120 PUFF INHALER INH SCH ×2 (07:34→19:25)
--- NOTE | 2020-01-12 08:11 | PRG ---
DATE OF SERVICE: 01/12/2020 SUBJECTIVE: Patient is seen and examined at the bedside. He complains about the abdominal pain in the epigastric area with some nausea. No vomiting. OBJECTIVE: VITAL SIGNS: Blood pressure is 119/72, pulse is 87, respiratory rate is 18, O2 saturation is 100% on room air. HEENT: His head is atraumatic and normocephalic. Eyes are PERRLA. Sclerae are nonicteric. Oral mucosa is slightly dry. NECK: Supple. LUNGS: Clear. HEART: S1, S2 normal. ABDOMEN: Tender in the epigastric area in the center, mild guarding. No masses. EXTREMITIES: No clubbing, cyanosis, or edema. NEUROLOGIC: He follows my commands. He moves his all 4 extremities. There is no any motor or sensory deficits. LABORATORY DATA: White count of 7.4, hemoglobin 11.0, hematocrit 33.4, platelet count is 349,000. Normal electrolytes. Two sets of troponin I within normal limits. BNP within normal limits. IMPRESSION: 1. Abdominal pain, most likely related to stomach pain. 2. Chronic obstructive pulmonary disease. 3. Hypertension. 4. History of gastroesophageal reflux disease. 5. Chronic low back pain. 6. Depression. 7. History of coronary artery disease. PLAN: Discontinue heparin. CT of the abdomen and pelvis with and without contrast. GI consult. Change PPI to IV Protonix 40 mg q.12 hours IV push, GI cocktail p.r.n. q.4 to 6 hours. Continue with Cardiology consultation, although there is no any evidence that he has some kind of acute coronary syndrome. We will continue his clopidogrel and continue Zofran p.r.n. Job ID: [id number]
--- NOTE | 2020-01-12 08:17 | CT ---
EXAM: CT Abdomen Pelvis WO Con PROVIDED CLINICAL HISTORY: Abdominal pain COMPARISON: None FINDINGS: The visualized lung bases are free of significant opacity. The examination is limited due to lack of IV and oral contrast. The solid abdominal organs demonstrate an unremarkable unenhanced CT appearance. There is conspicuous colonic fecal retention. There is conspicuous distention of the urinary bladder. There is no evidence for bowel obstruction. No definite inflammatory fat stranding. No free fluid or free air apparent. The appendix is not discretely identified. Vascular calcifications are noted involving the abdominal aorta and its branches. The osseous structures demonstrate no concerning lytic or blastic lesions. IMPRESSION: 1. No definite evidence for an acute process with limitations due to lack of IV and enteric contrast. 2. Conspicuous urinary bladder distention. 3. Conspicuous colonic fecal retention.
[2020-01-12] MEDS ORDERED: Prevnar 13-Val Conj/PF 0.5 ML SYRINGE IM ONE (09:00)
[2020-01-12] MEDS ORDERED: Iopamidol 370 76% 50 ML VIAL FS ONE (09:44)
[2020-01-12 10:00] LABS: CKMB 1.7 ng/mL (0-6.6)
[2020-01-12] MEDS: Clopidogrel Bisulfate 75 MG TAB PO SCH (10:09)
[2020-01-12] MEDS ORDERED: Milk Of Magnesia 30 ML UDCUP PO PRN (10:48)
[2020-01-12] MEDS: HYDROcodone/Acetaminophen 10/325 mg Tablet PO PRN ×2 (11:23→17:34)
[2020-01-12] MEDS ORDERED: Lidocaine 1% (PF) 30 ML VIAL ONE (14:32)
[2020-01-12] MEDS ORDERED: Verapamil 5 MG/2 ML VIAL ONE (15:03)
[2020-01-12] MEDS ORDERED: Nitroglycerin 100MG/250ML BOT 250 ML ONE (15:03)
[2020-01-12] MEDS ORDERED: Heparin 10,000 UNITS/1 ML VIAL ONE (15:03)
[2020-01-12] MEDS ORDERED: Fentanyl 100 MCG/2 ML VIAL ONE (15:06)
[2020-01-12] MEDS ORDERED: Midazolam HCl 2 mg/2 ml Vial ONE (15:06)
--- NOTE | 2020-01-12 15:15 | CON ---
DATE OF CONSULTATION: 01/12/2020 REASON FOR CONSULTATION: Chest pain. HISTORY OF PRESENT ILLNESS: Mr. Noonan is a very pleasant 64-year-old white gentleman, very well known to myself, who comes to the hospital for chest pain. He had a heart catheterization about 10 months ago. He was found to have a severe lesion on his LAD and this received a drug-eluting stent. He was here last week with recurrence of his chest pain. He has been having on and off chest pain since the stent. His troponins were negative, so he was discharged home as the possibility of in-stent thrombosis is minimal given his negative troponins and his EKG was unchanged. It had been actually 8 months since his drug-eluting stent. He currently admits to having relief of his pain after having a GI cocktail suggesting this is gastric in nature. He was admitted for unstable angina to the [facility]. PAST MEDICAL HISTORY: 1. Coronary artery disease, status post stenting to the left circumflex in April of 2019, drug-eluting stent. 2. COPD. 3. Hypertension. 4. GERD. 5. Chronic back pain. 6. Depression. SURGICAL HISTORY: 1. Heart catheterization with stent as above. 2. Vasectomy. SOCIAL HISTORY: No alcohol. No drugs. Smokes half pack a day. OUTPATIENT MEDICATIONS: 1. Tizanidine. 2. Fioricet. 3. Lisinopril. 4. Atorvastatin. 5. Albuterol. 6. Imdur 120 mg a day. 7. DuoNeb. 8. [place]. 9. Plavix 75 mg a day. 10. Toprol-XL 100 mg a day. 11. Protonix. 12. Multivitamins. 13. Zantac. ALLERGIES: TRAMADOL. REVIEW OF SYSTEMS: A 12-point review of systems was done and was all negative unless stated in the history of present illness. PHYSICAL EXAMINATION: VITAL SIGNS: Temperature 98.3, pulse is 57, respiratory rate 11, saturating 94% on 2 L, blood pressure 155/90. GENERAL: Awake, alert, and oriented x3. No distress. HEENT: Normocephalic, atraumatic. NECK: Supple. LUNGS: Clear. CARDIOVASCULAR: S1 and S2. No S3 or S4. No murmurs. ABDOMEN: Soft. Positive bowel sounds. EXTREMITIES: No edema. SKIN: Warm and dry. LABORATORY DATA: Laboratory work was reviewed. CBC with a white count of 6, hemoglobin of 12.8, hematocrit of 38, and platelet count of 382. Coags were unremarkable. Chemistry was completely normal. Troponin is negative x3. BNP was 33. Lipase was 28. EKG was unchanged. ASSESSMENT: 1. Chest pain. 2. Coronary artery disease, history of stenting to the left circumflex 8 months ago. PLAN: 1. We will further risk stratify with a heart catheterization. He has been in and out of the hospital. He gets admitted every time with concern of this being an IA. We will cath him to make sure that this is not the case to put this to rest. Hopefully, he will have wide open coronaries and he may need evaluation by GI for abdominal issues. 2. We spoke at length about the risks and benefits of the procedure. He agrees to proceed. He has had them before. He requested to do through the radial approach, if possible. We will do an Ritchie's test in a cathode maker and decide that at that point. 3. Further recommendations per the results of coronary angiogram. Job ID: [id number]
[2020-01-12] MEDS ORDERED: Nitroglycerin 0.4 MG TAB (25 Tab Bottle) SL PRN (15:19)
[2020-01-12] MEDS ORDERED: Sodium Chloride 0.9% 200 ML IV PRN (15:19)
--- NOTE | 2020-01-12 16:48 | CON ---
DATE OF CONSULTATION: 01/12/2020 CHIEF COMPLAINT: Epigastric to chest pain. HISTORY OF PRESENT ILLNESS: Mr. Noonan is a 64-year-old man, who had the onset of a sharp pain in the center of his chest that would come and go over an hour and then it gradually worsened, and he came on to the emergency room for further care. The pain seemed to localize later more to the upper epigastric region even towards the left upper quadrant. He has had similar pain on and off for years. He has taken Protonix, which did show some improvement in the symptoms over the last 2 or 3 months. The pain can worsen after eating and worsen with spicy foods. Sometimes, drinking water helps. He has had no associated nausea or vomiting. No dysphagia or odynophagia. His weight has been stable. He has bowel movement once every one or two days with brown, somewhat firm stools. No melena or hematochezia. Pain sometimes radiates through to his mid back. Pain has been continuous through the day today. He has been to the hospital previously with similar symptoms and has been evaluated by Cardiology. Cardiology plans for heart catheterization today. PAST MEDICAL HISTORY: Coronary artery disease, COPD, hypertension, gastroesophageal reflux disease, depression, and chronic back pain. PAST SURGICAL HISTORY: He had a drug-eluting stent placed to his left circumflex in April of 2019. He has had a vasectomy. FAMILY HISTORY: Negative for GI malignancies. SOCIAL HISTORY: He smokes a few cigarettes daily. No drugs. No alcohol. ALLERGIES: TRAMADOL. MEDICATIONS: Prior to admission include: 1. Clopidogrel. 2. Aspirin. 3. Pantoprazole 40 mg twice daily. 4. Tizanidine. 5. Multiple vitamin. 6. Metoprolol. 7. Lisinopril. 8. Isosorbide mononitrate. 9. Hydrocodone. 10. DuoNeb. 11. Fioricet. 12. Atorvastatin. 13. Albuterol. REVIEW OF SYSTEMS: Negative x10 systems reviewed except as stated in the history of present illness. PHYSICAL EXAMINATION: VITAL SIGNS: Temperature is 98.3, blood pressure 155/90, pulse 67. GENERAL: He is in no acute distress. Alert and oriented x3. HEENT: Eyes have no scleral icterus. Oropharynx is clear without lesions. LYMPHATICS: No cervical or supraclavicular lymphadenopathy. LUNGS: Clear to auscultation bilaterally. HEART: Regular rate and rhythm without murmur. ABDOMEN: Soft and nondistended. He does have some mild tenderness in the upper epigastric region without guarding. Bowel sounds are present. EXTREMITIES: Trace lower extremity edema. LABORATORY DATA: White blood cell count 7.4, hemoglobin 11.0, platelets 349. INR 0.9. Creatinine 0.85. IMAGING STUDIES: He had a CT scan of the abdomen and pelvis on 01/12/2020, at 07:30 this morning. This was done without IV or enteric contrast. Significant retention of stool, particularly in the right colon is noted. IMPRESSION: 1. Upper epigastric abdominal pain. This is located near the xiphoid process. Symptoms are suggestive of a peptic ulcer; however, he has been on proton-pump inhibitor already up to twice daily, which makes this less likely. He does take aspirin and Plavix. He is undergoing cardiac catheterization today. If that is negative, then upper endoscopy can be performed to rule out peptic ulcer. 2. Constipation. CT scan shows a large amount of stool in the right colon. This could be the source of his abdominal pain as well. The CT was without contrast, and if cardiac catheterization is negative and esophagogastroduodenoscopy is negative and his pain does not improve with laxatives, then repeat CT with IV contrast to rule out pancreatic lesion would be indicated. Actually, on review further back into the chart, he did have a CT scan with contrast back in May of 2019. Again, a large amount of stool was seen in the colon. No other acute abnormality was identified. I suspect the constipation is a primary source for his symptoms or at least contributing to them. RECOMMENDATIONS: 1. We will await results of the heart catheterization today. 2. If the heart catheterization is negative, then we will proceed with upper endoscopy tomorrow. 3. Start scheduled osmotic daily laxatives. I will start with MiraLAX 17 g twice daily and adjust this over time based on response. Job ID: [id number]
[2020-01-12] MEDS: Polyethylene Glycol 3350 17 GM Packet PO SCH (20:42)
[2020-01-12] MEDS ORDERED: Atorvastatin Calcium 10 MG TAB PO SCH (21:00)
[2020-01-13] MEDS: HYDROcodone/Acetaminophen 10/325 mg Tablet PO PRN ×2 (00:53→10:56)
[2020-01-13] MEDS: Mometasone/Formoterol 120 PUFF INHALER INH SCH (08:26)
[2020-01-13] MEDS ORDERED: Aspirin 81 mg Enteric Coated Tablet PO SCH (09:00)
[2020-01-13] MEDS ORDERED: Magnesium Citrate 300 ML BOT PO SCH (10:15)
--- NOTE | 2020-01-13 10:50 | OP ---
DATE OF PROCEDURE: 01/13/2020 PROCEDURE PERFORMED: Esophagogastroduodenoscopy with biopsy. PREOPERATIVE DIAGNOSIS: Epigastric abdominal pain. DESCRIPTION OF PROCEDURE: Informed consent was obtained from the patient. He was sedated with total intravenous anesthesia. The bite block was placed and the endoscope was advanced easily to the second portion of the duodenum and retroflexion was performed in the stomach. The esophagus was normal. The GE junction was normal. The stomach was normal including retroflexed views. The pylorus and first and second portions of the duodenum were normal. Duodenal biopsies taken to rule out celiac disease. IMPRESSION: 1. Normal esophagogastroduodenoscopy. Duodenal biopsies taken to rule out celiac disease. 2. Abdominal pain. I reviewed again his CT scan from yesterday, that was without contrast, and also a CT scan from last 05/2019, which was with contrast. He has significant distention of his colon with stool particularly in the right colon. This is likely secondary to the chronic opioid use. RECOMMENDATIONS: 1. Magnesium citrate today. 2. Start Movantik 25 mg p.o. daily. 3. MiraLAX 17 g daily. 4. Follow up in GI Clinic. He has never had a colonoscopy and should have one performed. He has had drug-eluting stent within the last year and will not be able to hold his Plavix. 5. Await histopathology 6. I will sign off for now. Please call if GI can be of assistance. Job ID: [id number] MTDD
[2020-01-13] MEDS: Clopidogrel Bisulfate 75 MG TAB PO SCH (10:55)
[2020-01-13] MEDS: Pantoprazole 40 MG VIAL IVP SCH (10:59)
[2020-01-13] MEDS: Polyethylene Glycol 3350 17 GM Packet PO SCH (10:59)
[2020-01-13] MEDS ORDERED: PROPOFOL 200 MG/20 ML VIAL ONE (11:27)
[2020-01-13 12:06] VITALS: BP 168/91; TEMP 98
--- NOTE | 2020-01-13 13:10 | DIS ---
DATE OF ADMISSION: 01/11/2020 DATE OF DISCHARGE: 01/13/2020 FINAL DIAGNOSES AT THE TIME OF DISCHARGE: 1. Abdominal pain, most likely related to constipation and secondary to opiate use. 2. Coronary artery disease, status post stent placement in 2019. 3. Chronic obstructive pulmonary disease. 4. Hypertension. 5. History of gastroesophageal reflux disease. 6. Chronic low back pain, on chronic opioid therapy. 7. Depression. 8. History of coronary artery disease. 9. Constipation secondary to opioids. CONSULTANTS: 1. Dr. Murphy, Gastrointestinal Service. 2. Dr. Moctezuma, Cardiology Service. HOSPITAL COURSE: The patient is a 64-year-old male, who was admitted to the hospital with chest pain. He has a history of coronary artery disease and had stent placed in his coronary artery in 2019, by Dr. Moctezuma and the patient was evaluated in the emergency room. His creatinine was 1.25. The rest of chemistry was within normal limits. Troponin was less than 0.010. CBC was within normal limits. EKG showed normal sinus rhythm with ventricular rate of 65 beats per minute. No ST-T wave changes. Chest x-ray showed hyperinflation, normal heart size, and slightly increased pulmonary vascular markings, but otherwise no acute process. The patient got admitted to the hospital for further management of his chest pain/abdominal pain. It turned out that this pain was more in the abdominal area than in the chest. He had additional 2 sets of cardiac enzymes, which came back within normal limits. He underwent CT of the abdomen and pelvis without contrast, which showed basically a conspicuous urinary bladder distention and conspicuous colonic fecal retention. This was most likely related to his chronic opiate use. The patient was seen by Dr. Murphy for GI consultation and he did EGD, which came back normal. The patient was placed on Movantik 25 mg once a day and he is doing well. He still has abdominal discomforts on and off. His vitals are stable. Physical examination did not reveal any significant abnormalities except for epigastric soreness on palpation of the abdomen. He is discharged home after he was seen by cottage supervisor, who originally wanted to do cardiac cath on him, but after consultation with GI, it was stated that this was definitely not a cardiac issue, this was more GI issue. The patient is going to be discharged home. He will stay on a heart healthy and low-salt diet. ACTIVITIES: As tolerated. MEDICATIONS AT THE TIME OF DISCHARGE: Movantik 25 mg once a day, aspirin 81 mg once a day, Tylenol 650 mg q.4 hours p.r.n. as needed, MiraLAX 17 g twice a day, pantoprazole 40 mg twice a day, Plavix 75 mg daily, hydrocodone/APAP 10/325 mg one tablet three times a day p.r.n. as needed, isosorbide mononitrate 120 mg once a day, lisinopril 2.5 mg once a day, metoprolol succinate 100 mg daily, multivitamin one a day, albuterol 2 puffs q.6 hours p.r.n. as needed, atorvastatin 10 mg nightly, Fioricet 1 tablet q.4 hours p.r.n. as needed, and DuoNebs q.6 hours p.r.n. FOLLOWUP: The patient is going to follow up with primary care physician in 1 week and with GI specialist, Dr. Murphy in the next 2 to 4 weeks, it depends on his abdominal pain. He was seen and examined before he was discharged. TIME SPENT: Discharge time is less than 30 minutes. Job ID: [id number]
--- NOTE | 2020-01-15 00:48 | EKG ---
Test Reason : Blood Pressure : / mmHG Vent. Rate : 065 BPM Atrial Rate : 065 BPM P-R Int : 124 ms QRS Dur : 086 ms QT Int : 398 ms P-R-T Axes : 048 061 069 degrees QTc Int : 413 ms Normal sinus rhythm Normal ECG Confirmed by MELLISSA WILKINSON M.D. ([id number]), editorial cartoonist SOCO MARTINEZ ([id number]) on 01/15/2020 12:48:23 AM Referred By: Confirmed By:MELLISSA WILKINSON M.D.
--- NOTE | 2020-01-16 10:37 | PQF ---
JOVANA BEEBE ZBIGNIEW A MD [id number] [id number] CLINICAL DOCUMENTATION CLARIFICATION FORM: POST DISCHARGE Addendum to original discharge summary date: ____ Late entry note date: __ DATE:01/16/2020 ATTN:MARSHALL PARMAR MD Please exercise your independent, professional judgment in responding to the clarification form. Clinical indicators are provided on the bottom of this form for your review Please check appropriate box(s): Kindly clarify the opiate use; [ x ] Adverse effect of opioids [ ] Overdose of opioids [ ] Other diagnosis [ ] Unable to determine For continuity of documentation, please document condition throughout progress notes and discharge summary. Thank You. CLINICAL INDICATORS - SIGNS / SYMPTOMS / LABS Abdominal pain most likely related to constipation and secondary to opiate use - Documented in discharge summary on 01/13 by Marshall Parmar MD Chronic low back pain on chronic opioid therapy -Documented in discharge summary on 01/13 by Marshall Parmar MD Constipation secondary to opioids-Documented in discharge summary on 01/13 by Marshall Parmar MD RISKS: Chronic low back pain on chronic opioid therapy -Documented in discharge summary on 01/13 by Marshall Parmar MD TREATMENT: The patient was placed on movantik 25 mg once a day -Documented in discharge summary on 01/13 by Marshall Parmar MD Morphine 4 mg -Documented in Medication snapshot [employer] Intern Product Marketing Manager [employer] Win[employer] Viewer (This form is maintained as a part of the permanent medical record) 2014 [employer]. All Rights Reserved [email or web address] [phone] [email or web address]
== END 2020-01-13 12:12 | disposition home or self-care (01) | DRG 392 ==
LOC: ERS 21:23 → CCU 23:34 → 2NO 01-12 20:25
PROVIDERS: ADMIT Internal Medicine; ATTEND Internal Medicine
PROC: 4A023N7 Measurement of Cardiac Sampling and Pressure, Left Heart, Percutaneous Approach (ICD-10-PCS; principal; 2020-01-11)
PROC: B2111ZZ Fluoroscopy of Multiple Coronary Arteries using Low Osmolar Contrast (ICD-10-PCS; 2020-01-11)
PROC: 0DB98ZX Excision of Duodenum, Via Natural or Artificial Opening Endoscopic, Diagnostic (ICD-10-PCS; 2020-01-13)
DX: K59.03 Drug induced constipation (principal); R07.89 Other chest pain; T40.2X5A Adverse effect of other opioids, initial encounter; I25.10 Atherosclerotic heart disease of native coronary artery without angina pectoris; Z95.5 Presence of coronary angioplasty implant and graft; J44.9 Chronic obstructive pulmonary disease, unspecified; I10 Essential (primary) hypertension; K21.9 Gastro-esophageal reflux disease without esophagitis; M54.5 Low back pain; G89.29 Other chronic pain; F32.9 Major depressive disorder, single episode, unspecified; Z88.5 Allergy status to narcotic agent; F17.210 Nicotine dependence, cigarettes, uncomplicated; Z71.6 Tobacco abuse counseling
CPT/HCPCS: 36415; 71045; 74176; 80048; 80053; 82550; 82553; 83690; 83880; 84484; 85025; 85379; 85610; 85730; 88305; 93005; 93454; 94640; 94760; 96374; 96375; C1769; C9113; J1644; J2001; J2250; J2270; J2405; J2704; J3010; J7620; Q9967

== ENCOUNTER 2020-02-06 16:11 | Emergency (ER) | payer MEDICARE | END 2020-02-06 16:41 | disposition home or self-care (01) | LOC: ERS 16:11 | DX: G89.29 Other chronic pain (principal); M54.2 Cervicalgia; I25.10 Atherosclerotic heart disease of native coronary artery without angina pectoris; J44.9 Chronic obstructive pulmonary disease, unspecified; I10 Essential (primary) hypertension; K21.9 Gastro-esophageal reflux disease without esophagitis; I25.2 Old myocardial infarction; F32.9 Major depressive disorder, single episode, unspecified; F17.210 Nicotine dependence, cigarettes, uncomplicated; Z79.82 Long term (current) use of aspirin; Z79.02 Long term (current) use of antithrombotics/antiplatelets; Z79.899 Other long term (current) drug therapy | CPT/HCPCS: 99281 ==

== ENCOUNTER 2020-02-08 17:51 | Inpatient (IN) | payer MEDICARE, OTHER ==
[2020-02-08] MEDS ORDERED: cefTRIAXone\\ROCEPHIN 2 GM VIAL ONE (18:25)
[2020-02-08] MEDS ORDERED: Azithromycin 500 MG VIAL ONE (18:25)
[2020-02-08 18:29] LABS: #Basophils 0.1 thou/uL (0.0-0.2); #Eosinphils 0.2 thou/uL (0.0-0.7); #Lymphocytes 3.2 thou/uL (1.20-3.40); #Monocytes 0.6 thou/uL (0.11-0.59); #Neutrophils 5.1 thou/uL (1.40-6.50); %Eosinophils 1.9 % (0.0-10.0); %Lymphocytes 34.7 % (21.0-51.0); %Monocytes 6.9 % (0.0-10.0); %Neutrophils 55.6 % (42.0-75.0); Hemoglobin 11.7 g/dL (14.0-18.0); Mean Corpuscular HGB CONC 34.3 g/dL (32.0-36.0); Mean Corpuscular Hemoglobin 33.6 pg (27.0-31.0); Mean Corpuscular Volume 97.8 fL (78.0-98.0); Mean Platelet Volume 7.2 fL (7.4-10.4); Platelet Count 437 thou/uL (130-400); RBC Distribution Width 13.2 % (11.5-14.5); Red Blood Cell (RBC) Count 3.48 mill/uL (4.70-6.10); White Blood Cell (WBC) Count 9.2 thou/uL (4.8-10.8)
[2020-02-08 18:51] LABS: ALT (SGPT) 16 U/L (8-55); AST (SGOT) 21 U/L (5-34); Alkaline Phosphatase 92 U/L (40-110); Anion Gap 11 mmol/L (10-20); BUN (Urea Nitrogen) 11 mg/dL (8.4-25.7); Bilirubin, Total 0.2 mg/dL (0.2-1.2); Calc. Creatinine Clearance 0 mL/min (70-130); Calcium 9.1 mg/dL (7.8-10.44); Carbon Dioxide 29 mmol/L (23-31); Chloride 100 mmol/L (98-107); Estimated GFR-MDRD 86; Globulin 2.6 g/dL (2.4-3.5); Glucose 105 mg/dL (80-115); Potassium 4.4 mmol/L (3.5-5.1); Protein, Total 6.6 g/dL (5.8-8.1); Sodium 136 mmol/L (136-145)
--- NOTE | 2020-02-08 18:54 | RAD ---
RADIOGRAPH CHEST 1 VIEW: DATE: 02/08/2020 HISTORY: 64-year-old male with chest pain and dyspnea FINDINGS: There are no airspace densities, pulmonary edema, pneumothorax, or cardiomegaly. The lateral costophr enic angles are sharp. IMPRESSION: No acute cardiopulmonary findings.
[2020-02-08] MEDS ORDERED: Morphine 2 MG/ML SYRINGE ONE (19:08)
[2020-02-08] MEDS ORDERED: Aspirin Chewable 81 MG TAB ONE (19:39)
[2020-02-08] MEDS ORDERED: Fentanyl 100 MCG/2 ML VIAL ONE (21:27)
[2020-02-08 21:37] LABS: Troponin I Less than 0.010 ng/mL (< 0.028)
--- NOTE | 2020-02-08 21:38 | HP ---
PRIMARY CARE PHYSICIAN: Elisabeth Scott MD CHIEF COMPLAINT: Chest pain and shortness of breath. HISTORY OF PRESENT ILLNESS: This is a 64-year-old white male with a known history of COPD along with chronic pain. He presents to the emergency room with complaint of left-sided chest pain for the last couple of days as a lower lateral left chest, sharp, worse with inspiration or with coughing. It is associated with some increased shortness of breath for the last 2 to 3 days and some low-grade fevers on and off for the last 10 days up to 100.5 at the highest. He has a persistent smoker's cough that is not any worse than normal and has had no sputum production. He has had a little bit of sore throat but no runny nose or congestion. He has had some headaches on and off as well. No other specific symptoms. He denies any travel history or any known COVID-19 contacts. Of note, the patient was admitted to the hospital 1 month ago for some substernal chest pain and hypertensive emergency. He had a cardiac catheterization at that time which showed patent stents from where he had stent placed about 9 months ago. He also had an EGD that was normal at that time and was put on Protonix twice a day. REVIEW OF SYSTEMS: CONSTITUTIONAL: See HPI. EYES: No double vision or blurred vision. ENT: See HPI. CARDIOVASCULAR: No palpitations or racing heart. He does have the chest pain as per the HPI. PULMONARY: See HPI. GASTROINTESTINAL: No abdominal pain. He has had a little bit of nausea. No vomiting. No diarrhea or constipation. GENITOURINARY: No dysuria or hematuria, and he does feel like his urine output has been a little bit less recently, though he drinks lots of water. MUSCULOSKELETAL: He has some chronic neck pain, but no other musculoskeletal complaints at this time. SKIN: No rashes or lesions, he has noted. NEUROLOGIC: No numbness, tingling, or focal weakness. PSYCHIATRIC: The patient reports a history of depression. He has a remote history of suicidal attempt with medication overdose and had a hospitalization at that time. He has not had anything like that recently. He does have chronic persistent depression. He is not seeing a psychiatrist for this and is on no medication for it. He reports that for an undetermined length of time, the depression is worse and has been worsened yesterday. He eventually did admit in the emergency room to feeling suicidal ideation yesterday. He felt like he wanted to kill himself. He however never developed a plan. Today, he is still feeling depressed and is not able to tell me whether or not he feels suicidal now or not. He did report some suicide ideation to the nurse earlier before I got here. PAST MEDICAL HISTORY: 1. Coronary artery disease with previous myocardial infarction. 2. COPD. 3. Hypertension. 4. Gastroesophageal reflux disease. 5. Chronic back pain. PAST PSYCHIATRIC HISTORY: Depression with previous suicidal attempt 2 years ago by overdose and previous psychiatric hospitalization. PAST SURGICAL HISTORY: 1. Cardiac catheterization about a year ago with stent placed and repeat cardiac catheterization last month. 2. Vasectomy. SOCIAL HISTORY: The patient is . His 's name is Patsy Noonan, goes by Capri. She is his medical decision maker should he be incapacitated. He is a full code. The patient has a long history of smoking. He states now that he does not really smoke much at all, but he continues to smoke a little bit, was not able to give me an amount of how much. He does not drink alcohol. No illicit drug use. FAMILY HISTORY: Significant for severe coronary artery disease in his father side of the family, some cancer in the family. His mother side lives into old age. ALLERGIES: TRAMADOL. CURRENT MEDICATIONS: 1. Acetaminophen as needed for pain. 2. Albuterol inhaler as needed. 3. Aspirin 81 mg daily. 4. Atorvastatin 10 mg at night. 5. Clopidogrel 75 mg daily. 6. Hydrocodone/acetaminophen 10/325 one tablet 3 times a day as needed for pain. 7. DuoNeb inhaled every 6 hours as needed. 8. Imdur extended release 120 mg daily. 9. Lisinopril 2.5 mg daily. 10. Metoprolol succinate 100 mg daily. 11. Multivitamin daily. 12. Movantik 25 mg daily. 13. Protonix 40 mg twice a day. 14. MiraLAX 17 g twice a day. 15. Tizanidine 2 mg 3 times a day as needed for muscle spasms. 16. No new medication for COPD. PHYSICAL EXAMINATION: VITAL SIGNS: Blood pressure 125/80, pulse 83, respirations 22, temperature 98.5 , O2 saturation 96% on room air, pain level moderate in appearance. GENERAL: This is a well-developed, well-nourished white male, with some distress from pain. No acute respiratory distress. HEENT: Pupils are equal, round, and reactive to light. Oropharynx clear without lesions, erythema, or exudate. He does have some dry mucous membranes. NECK: Supple. No lymphadenopathy. No thyroid nodules or enlargement. No JVD. HEART: Regular rate and rhythm. No murmurs, rubs, or gallops. LUNGS: The patient has some decreased breath sounds throughout, but no wheezing. No increased work of breathing. No tachypnea. He does not have any tenderness to palpation of the left anterior and lateral chest wall where he has pain. ABDOMEN: Soft, nontender to palpation. Normoactive bowel sounds. No hepatosplenomegaly or other masses. EXTREMITIES: No clubbing, cyanosis, or edema. SKIN: No rashes or lesions noted. NEUROLOGIC: Intact movement in all extremities. No facial droop. PSYCHIATRIC: The patient is alert and oriented x3. He has depressed affect. LABORATORY DATA: CBC with hemoglobin 11.7, hematocrit 34.1. The rest was normal. Complete metabolic panel is within normal limits. Lactic acid was negative. Troponin was negative x1. D-dimer is pending. DIAGNOSTIC DATA: Chest x-ray, shows no cardiomegaly, no pulmonary edema, no infiltrates or evidence of acute pulmonary disease. ASSESSMENT: 1. Chest pain, pleuritic in nature, appears to be pleurisy, likely from viral infection. The patient has had a low-grade fever and increased shortness of breath. Given the current COVID outbreak, he has not had any direct contacts, but his symptoms are concerning, so we will check a COVID test. For now, keep the patient on respiratory isolation and we will give him inhalers instead of nebulizers for control of his chronic obstructive pulmonary disease. We will resume the patient's hydrocodone and we will add in a very low dose of Toradol IV 10 mg q.6 hours for pain. We will keep him on his Protonix to prevent gastrointestinal bleed from the NSAID use. 2. Chronic obstructive pulmonary disease, not currently in significant exacerbation. He has had no increased sputum. No increased cough, so we will hold off any steroids for now. I will give him Atrovent and albuterol inhalers as needed for coughing, wheezing, or shortness of breath and we will continue his home medications. 3. Suicidal depression with suicidal ideation. No plan. The patient will be put on suicide precautions with 24 hours sitter and after he is cleared for COVID infection and stable medically, then we will have [facility] come and evaluate him. 4. Gastroesophageal reflux disease. We will continue Protonix 40 mg twice a day. 5. Deep venous thrombosis prophylaxis. We will put the patient on low-dose Lovenox. 6. CAD. Continue ASA and Plavix CODE STATUS: The patient is a full code. Should he be incapacitated, his would be his medical decision maker. Job ID: [id number] MTDD
[2020-02-08] MEDS ORDERED: Ondansetron PF 4 MG/2 ML Vial IVP PRN (23:46)
[2020-02-08] MEDS ORDERED: Ketorolac Tromethamine 30 MG/ML VIAL IVP PRN (23:46)
[2020-02-08] MEDS ORDERED: Acetaminophen 325 MG TAB PO PRN (23:46)
[2020-02-08] MEDS ORDERED: PROVENTIL INHALER 6.7 G (200 INHALATIONS) INH PRN (23:46)
[2020-02-08] MEDS ORDERED: Ipratropium Oral Inhaler INH PRN (23:46)
[2020-02-08] MEDS ORDERED: Acetaminophen 650 MG Suppository PR PRN (23:46)
[2020-02-08] MEDS ORDERED: Ondansetron ODT 4 MG TAB PO PRN (23:46)
[2020-02-08] MEDS ORDERED: Senokot S 8.6-50 MG TAB PO PRN (23:46)
[2020-02-08] MEDS ORDERED: HYDROcodone/Acetaminophen 5/325 mg Tablet PO PRN (23:46)
[2020-02-08] MEDS ORDERED: Albuterol 200 PUFF (6.7GM INHALER) INH PRN (23:58)
[2020-02-08] MEDS ORDERED: Atorvastatin Calcium 10 MG TAB PO SCH (23:59)
[2020-02-08] MEDS ORDERED: Famotidine 20 MG TAB PO SCH (23:59)
[2020-02-08] MEDS ORDERED: Polyethylene Glycol 3350 17 GM Packet PO SCH (23:59)
[2020-02-09] MEDS: Guaifenesin DM 100-10/5 ML UDCUP PO PRN ×2 (00:14→13:25)
[2020-02-09] MEDS: HYDROcodone/Acetaminophen 5/325 mg Tablet PO PRN ×6 (00:14→21:12)
[2020-02-09 01:18] LABS: Troponin I Less than 0.010 ng/mL (< 0.028)
[2020-02-09 02:52] VITALS: BMI 19.5
[2020-02-09 04:44] LABS: #Basophils 0.1 thou/uL (0.0-0.2); #Eosinphils 0.3 thou/uL (0.0-0.7); #Lymphocytes 3.9 thou/uL (1.20-3.40); #Monocytes 0.6 thou/uL (0.11-0.59); #Neutrophils 4.4 thou/uL (1.40-6.50); %Basophils 1.1 % (0.0-1.0); %Eosinophils 2.9 % (0.0-10.0); %Lymphocytes 42.2 % (21.0-51.0); %Monocytes 6.2 % (0.0-10.0); %Neutrophils 47.6 % (42.0-75.0); Hemoglobin 11.2 g/dL (14.0-18.0); Mean Corpuscular HGB CONC 33.1 g/dL (32.0-36.0); Mean Corpuscular Hemoglobin 32.7 pg (27.0-31.0); Mean Corpuscular Volume 98.8 fL (78.0-98.0); Platelet Count 399 thou/uL (130-400); RBC Distribution Width 13.3 % (11.5-14.5); Red Blood Cell (RBC) Count 3.42 mill/uL (4.70-6.10); White Blood Cell (WBC) Count 9.2 thou/uL (4.8-10.8)
[2020-02-09 05:07] LABS: Anion Gap 13 mmol/L (10-20); BUN (Urea Nitrogen) 8 mg/dL (8.4-25.7); Calc. Creatinine Clearance 78 mL/min (70-130); Calcium 8.3 mg/dL (7.8-10.44); Carbon Dioxide 23 mmol/L (23-31); Chloride 104 mmol/L (98-107); Estimated GFR-MDRD Greater than 90; Glucose 92 mg/dL (80-115); Potassium 3.9 mmol/L (3.5-5.1); Sodium 136 mmol/L (136-145)
--- NOTE | 2020-02-09 07:25 | PDOC.HOSPP ---
- Subjective Encounter Date: 02/09/20 Encounter Time: 09:30 Subjective: Patient with improvement in left sided chest pain, still hurts with inspiration and coughing. Mild cough. No fever. - Objective Vital Signs & Weight: Vital Signs (12 hours) Temp Pulse Resp BP BP Pulse Ox 02/09/20 04:49 97.5 F L 69 22 H 135/78 95 02/08/20 23:47 97.7 F 71 18 139/70 94 L 02/08/20 23:30 97.7 F 71 24 H 139/70 94 L Weight Weight 128 lb 1.6 oz I&O: 02/08/20 02/09/20 02/10/20 06:59 06:59 06:59 Intake Total 960 Balance 960 Result Diagrams: 02/09/20 04:35 02/09/20 04:35 Hospitalist ROS - Review of Systems Constitutional: denies: fever, chills Respiratory: reports: cough, shortness of breath Cardiovascular: reports: chest pain. denies: palpitations Gastrointestinal: denies: nausea, vomiting, abdominal pain Genitourinary: denies: dysuria, hematuria - Medication Medications: Active Medications Generic Name Dose Route Start Last Admin Trade Name Freq PRN Reason Stop Dose Admin Hydrocodone Bitart/Acetaminophen 2 tab 02/08/20 23:46 02/09/20 04:06 Orwell 5/325 PO 2 tab Q4H PRN Administration Severe Pain (7-10) Guaifenesin/Dextromethorphan 15 ml 02/08/20 23:46 02/09/20 00:14 Robitussin Dm PO 15 ml Q4H PRN Administration Cough - Exam General Appearance: NAD, awake alert ENT: moist mucosa Heart: RRR, no murmur, no gallops, no rubs Respiratory: CTAB, no wheezes, no rales, no ronchi Gastrointestinal: soft, non-tender, non-distended, normal bowel sounds Psychiatric: normal behavior, A&O x 3 Psychiatric - other findings: depressed affect, better than yesterday Hosp A/P (1) Pleuritic chest pain Code(s): R07.81 - PLEURODYNIA Status: Acute (2) COPD (chronic obstructive pulmonary disease) Status: Chronic (3) Depression with suicidal ideation Code(s): F32.9 - MAJOR DEPRESSIVE DISORDER, SINGLE EPISODE, UNSPECIFIED; R45.851 - SUICIDAL IDEATIONS Status: Acute (4) CAD (coronary artery disease) Code(s): I25.10 - ATHSCL HEART DISEASE OF [place] CORONARY ARTERY W/O ANG PCTRS Status: Chronic (5) Chronic pain Code(s): G89.29 - OTHER CHRONIC PAIN Status: Chronic (6) GERD (gastroesophageal reflux disease) Code(s): K21.9 - GASTRO-ESOPHAGEAL REFLUX DISEASE WITHOUT ESOPHAGITIS Status: Chronic (7) HTN (hypertension) Code(s): I10 - ESSENTIAL (PRIMARY) HYPERTENSION Status: Chronic Qualifiers: - Plan Continue NSAIDS, Orwell. COVID-19 pending Inhalers for COPD Suicide precautions, MHMR once cleared medically GI proph: Protonix DVT proph: Lovenox
[2020-02-09] MEDS ORDERED: tiZANidine HCl 4 MG TAB PO PRN (09:00)
[2020-02-09] MEDS: Clopidogrel Bisulfate 75 MG TAB PO SCH (09:07)
[2020-02-09] MEDS: Polyethylene Glycol 3350 17 GM Packet PO SCH ×2 (09:07→21:12)
[2020-02-09] MEDS: Lisinopril 2.5 MG TAB PO SCH (09:07)
[2020-02-09] MEDS: Multivit, Therapeutic 1 TAB PO SCH (09:07)
[2020-02-09] MEDS: Famotidine 20 MG TAB PO SCH ×2 (09:07→21:13)
[2020-02-09] MEDS: Aspirin 81 mg Enteric Coated Tablet PO SCH (09:07)
[2020-02-09] MEDS: Enoxaparin Sodium 40 MG/0.4 ML SYRINGE SC SCH (09:08)
[2020-02-09] MEDS: Nicotine 14 MG PATCH TD SCH (12:27)
--- NOTE | 2020-02-09 14:52 | EKG ---
Test Reason : Blood Pressure : / mmHG Vent. Rate : 093 BPM Atrial Rate : 093 BPM P-R Int : 122 ms QRS Dur : 086 ms QT Int : 334 ms P-R-T Axes : 057 053 069 degrees QTc Int : 415 ms Normal sinus rhythm Normal ECG Confirmed by LUANNE SWEET, INOCENCIA ([id number]), editor magazine SOCO MARTINEZ ([id number]) on 02/09/2020 2:51:58 PM Referred By: Confirmed By:INOCENCIA STROUD MD
[2020-02-09] MEDS ORDERED: Atorvastatin Calcium 10 MG TAB PO SCH (21:00)
[2020-02-10] MEDS: HYDROcodone/Acetaminophen 5/325 mg Tablet PO PRN ×2 (06:17→11:17)
[2020-02-10] MEDS: Clopidogrel Bisulfate 75 MG TAB PO SCH (08:18)
[2020-02-10] MEDS: Aspirin 81 mg Enteric Coated Tablet PO SCH (08:18)
[2020-02-10] MEDS: Enoxaparin Sodium 40 MG/0.4 ML SYRINGE SC SCH (08:19)
[2020-02-10] MEDS: Famotidine 20 MG TAB PO SCH (08:19)
[2020-02-10] MEDS: Multivit, Therapeutic 1 TAB PO SCH (08:20)
[2020-02-10] MEDS: Lisinopril 2.5 MG TAB PO SCH (08:20)
[2020-02-10 08:21] VITALS: BP 164/110
[2020-02-10] MEDS: Polyethylene Glycol 3350 17 GM Packet PO SCH (08:21)
[2020-02-10 09:58] VITALS: TEMP 97.7
[2020-02-10] MEDS: Nicotine 14 MG PATCH TD SCH (11:17)
--- NOTE | 2020-02-10 16:48 | DIS ---
DATE OF ADMISSION: 02/08/2020 DATE OF DISCHARGE: 02/10/2020 REASON FOR HOSPITALIZATION: Shortness of breath. SIGNIFICANT FINDINGS: The patient with chronic COPD without acute exacerbation. PROCEDURES PERFORMED AND TREATMENTS RENDERED: The patient is a 64-year-old gentleman who presented to [facility] on 02/08/2020 with multiple complaints. The patient mainly complaining of shortness of breath and some rib pain, which was diagnosed as pleurisy. The patient has had a recent cardiac catheterization and EGD, which were found to be normal on recent hospitalization less than 1 month ago. There was concern with low-grade fever that the patient may have been exposed to COVID-19, though he did not have any definitive sick contacts and no one around him had a positive test. He was admitted to the hospital for further evaluation. The patient came back negative with COVID testing on laboratory serology testing. There are also some concerns on admission from the emergency department doctor that the patient with worsening depression, was a danger to himself. After the patient was medically cleared on 02/10/2020, the patient was evaluated by Mental Health, who determined that the patient was not a danger to himself. When I evaluated the patient on 02/10/2020, he states that he has been more depressed lately, though he has not had any suicidal ideation or plan. The patient tells me that he does get down and depressed from [id number] and he believes that his depression is worse than normal. The patient does have many reasons to live and he currently denies any suicidal ideation. The mental health evaluation determined that he was safe for discharge with close followup in the outpatient setting with primary care physician and outpatient psychiatry. CONDITION ON DISCHARGE: Stable. SPECIFIC INSTRUCTIONS FOR THE PATIENT/FAMILY: 1. The patient is recommended to take all home medications as directed, to be re-evaluated by primary care physician and psychiatry in the outpatient setting in the near future. 2. The patient is recommended to follow up with primary care physician in the next 5 to 7 days-or return to acute care hospital immediately if unable to be seen. 3. The patient recommended to follow up with outpatient psychiatry in the next 2 to 4 weeks-or return to acute care hospital immediately if unable to be seen. 4. The patient recommended to return to acute care hospital immediately if signs or symptoms return, worsen, or any other new symptoms occur. DISCHARGE MEDICATIONS: Please see full discharge medication list for details and there were no new prescriptions generated, the patient ensures me that he has adequate 3-month supply of all of his medications at home and he does not require any refills. Greater than 38 minutes spent in coordinating care and discharge process for this patient. Job ID: [id number]
== END 2020-02-10 14:42 | disposition home or self-care (01) | DRG 194 ==
LOC: ERS 17:51 → OBSVTOIN 20:00 → 2SE 20:00 → IMCU/EMU 02-10 06:56
PROVIDERS: ADMIT Emergency Medicine; ATTEND Emergency Medicine
DX: R09.1 Pleurisy (principal); R45.851 Suicidal ideations; J44.9 Chronic obstructive pulmonary disease, unspecified; F32.9 Major depressive disorder, single episode, unspecified; I25.10 Atherosclerotic heart disease of native coronary artery without angina pectoris; I10 Essential (primary) hypertension; K21.9 Gastro-esophageal reflux disease without esophagitis; G89.29 Other chronic pain; M54.9 Dorsalgia, unspecified; I25.2 Old myocardial infarction; Z91.5 Personal history of self-harm; Z79.899 Other long term (current) drug therapy; Z79.82 Long term (current) use of aspirin; Z79.02 Long term (current) use of antithrombotics/antiplatelets
CPT/HCPCS: 36415; 71045; 80048; 80053; 83605; 84484; 85025; 85379; 87040; 87804; 93005; 96365; 96375; 99292; J0456; J0696; J1650; J2270; J3010; U0001

== ENCOUNTER 2020-03-29 15:49 | Outpatient (CLI) | payer MEDICARE ==
--- NOTE | 2020-03-29 16:45 | MRI ---
CT cervical spine noncontrast HISTORY: Neck pain. Bilateral arm numbness. Radiculopathy. FINDINGS: Vertebral body heights are maintained. There is desiccation of all of the intervertebral di scs. Moderate discogenic endplate changes throughout the bone marrow. C2-3: Central canal is patent. Osteophytosis of the vertebral bodies and facets. Severe right and mod erate left foraminal stenoses. C3-4: Minimal posterior osteophyte/disc complex. Thecal sac is patent. Degenerative changes of the ve rtebral bodies and facets. Moderate bilateral foraminal stenoses. C4-5: Mild posterior osteophyte/disc complex and circumferential degenerative changes. Mild stenosis of the central canal. Moderate stenosis of each neural foramen. C5-6: Disc space narrowing. Minimal degenerative retrolisthesis. Prominent posterior osteophyte/disc complex. Circumferential degenerative changes with moderate to severe stenosis of the central canal. Moderate right and severe left foraminal stenoses. C6-7: Disc space narrowing. Posterior osteophyte/disc complex and circumferential degenerative change s. Mild stenosis of the central canal. Severe right and mild to moderate left foraminal stenoses. C7-T1: Osteophytosis of the facets. No significant central canal or foraminal stenoses. IMPRESSION : Prominent multilevel degenerative changes throughout the cervical spine, including central canal and severe foraminal stenoses as detailed above. Progressed since the prior exam from 2018.
== END 2020-03-29 15:50 | disposition home or self-care (01) ==
LOC: TBSIIMAG 15:49
PROVIDERS: ATTEND Neurological Surgery
DX: M50.30 Other cervical disc degeneration, unspecified cervical region (principal); M47.812 Spondylosis without myelopathy or radiculopathy, cervical region; M48.02 Spinal stenosis, cervical region
CPT/HCPCS: 72141

== ENCOUNTER 2020-04-25 06:37 | Outpatient (CLI) | payer MEDICARE, OTHER ==
[2020-04-25 18:12] LABS: #Basophils 0.1 thou/uL (0.0-0.2); #Eosinphils 0.1 thou/uL (0.0-0.7); #Lymphocytes 1.9 thou/uL (1.20-3.40); #Monocytes 0.3 thou/uL (0.11-0.59); #Neutrophils 3.2 thou/uL (1.40-6.50); %Basophils 0.9 % (0.0-1.0); %Eosinophils 1.1 % (0.0-10.0); %Lymphocytes 34.5 % (21.0-51.0); %Monocytes 6.2 % (0.0-10.0); %Neutrophils 57.3 % (42.0-75.0); Hemoglobin 13.1 g/dL (14.0-18.0); Mean Corpuscular HGB CONC 33.2 g/dL (32.0-36.0); Mean Corpuscular Hemoglobin 32.4 pg (27.0-31.0); Mean Corpuscular Volume 97.6 fL (78.0-98.0); Mean Platelet Volume 8.9 fL (7.4-10.4); Platelet Count 274 thou/uL (130-400); RBC Distribution Width 11.9 % (11.5-14.5); Red Blood Cell (RBC) Count 4.04 mill/uL (4.70-6.10); White Blood Cell (WBC) Count 5.6 thou/uL (4.8-10.8)
[2020-04-25 18:19] LABS: Anion Gap 15 mmol/L (10-20); BUN (Urea Nitrogen) 16 mg/dL (8.4-25.7); Calc. Creatinine Clearance 0 mL/min (70-130); Calcium 9.4 mg/dL (7.8-10.44); Carbon Dioxide 23 mmol/L (23-31); Chloride 101 mmol/L (98-107); Estimated GFR-MDRD 74; Glucose 123 mg/dL (80-115); Potassium 4.2 mmol/L (3.5-5.1); Sodium 135 mmol/L (136-145)
== END 2020-04-25 06:38 | disposition home or self-care (01) ==
LOC: LABBT 06:37
PROVIDERS: ATTEND Neurological Surgery
DX: Z01.818 Encounter for other preprocedural examination (principal); Z11.59 Encounter for screening for other viral diseases; M54.12 Radiculopathy, cervical region
CPT/HCPCS: 80048; 85025; 93005; U0003; 87635; 93010

== ENCOUNTER 2020-04-30 06:34 | Day surgery (SDC) | payer MEDICARE ==
[2020-04-24 13:04] VITALS: BMI 19.0
[2020-04-30] MEDS ORDERED: Fentanyl 100 MCG/2 ML VIAL ONE ×5 (08:08→10:01)
[2020-04-30] MEDS ORDERED: HYDROmorphone 2 MG/ML VIAL SLOW IVP PRN (09:00)
[2020-04-30] MEDS ORDERED: Promethazine HCl 25 MG/ML VIAL SLOW IVP PRN (09:00)
[2020-04-30] MEDS ORDERED: Ondansetron HCl/PF 4 MG/2 ML Vial IVP PRN (09:00)
[2020-04-30] MEDS ORDERED: Meperidine HCl/PF 25 MG/ML VIAL SLOW IVP PRN (09:00)
[2020-04-30] MEDS ORDERED: tiZANidine HCl 4 MG TAB ONE (10:29)
[2020-04-30] MEDS ORDERED: Tamsulosin HCl 0.4 MG CAP ONE (10:30)
[2020-04-30] MEDS ORDERED: Morphine 2 MG/ML SYRINGE ONE (10:30)
[2020-04-30] MEDS ORDERED: Ondansetron PF 4 MG/2 ML Vial ONE (10:39)
[2020-04-30] MEDS ORDERED: PROPOFOL 200 MG/20 ML VIAL ONE (10:39)
[2020-04-30] MEDS ORDERED: Rocuronium Bromide 10 MG/ML (10ML VIAL) ONE (10:39)
[2020-04-30] MEDS ORDERED: Dexamethasone 20 MG/5 ML VIAL ONE (10:39)
[2020-04-30] MEDS ORDERED: Glycopyrrolate 0.2 MG/ML 5 ML SYRINGE ONE (10:39)
[2020-04-30] MEDS ORDERED: Lidocaine 1% PF 5 ML VIAL ONE (10:39)
[2020-04-30] MEDS ORDERED: Acetaminophen/Codeine 30-300mg Tablet ONE (10:52)
--- NOTE | 2020-04-30 10:54 | OP ---
DATE OF PROCEDURE: 04/30/2020 [employer]EM[employer]: Sharon Garcia PA-C PROCEDURE PERFORMED: Anterior cervical diskectomy C5-C6 and C6-C7, interbody arthrodesis, intervertebral biomechanical device, local morselized autograft, anterior titanium instrumentation C5-C6 and C6-C7. DESCRIPTION OF PROCEDURE: The patient was brought to the operating room and intubated. He was positioned supine with head in modest extension on a gel-filled donut. An incision was made in the right precervical area and dissected medial to the sternocleidomastoid muscle, identified the anterior cervical spinal, and the level was confirmed by x-ray. We debrided the anterior osteophytic disease, placed distraction across the disk space and completely decompressed the intervertebral disks. Bony endplates were then decorticated for the purpose of arthrodesis and appropriate-sized intervertebral biomechanical PEEK device was brought in the field. It was filled with demineralized bone matrix and local morselized autograft, tapped in place securely at C5-C6 and C6-C7. Next, an anterior plate was brought into the field and secured to C5, C6, and C7 using two 14-mm screws at each level. The wound was then extensively irrigated and MAC hemostasis was secured and the wound was closed in anatomic layers. Job ID: [id number]
== END 2020-04-30 11:40 | disposition home or self-care (01) ==
LOC: SDC 06:34
PROVIDERS: ATTEND Neurological Surgery
PROC: 0RG20A0 Fusion of 2 or more Cervical Vertebral Joints with Interbody Fusion Device, Anterior Approach, Anterior Column, Open Approach (ICD-10-PCS; principal; 2020-04-30)
PROC: 0RT30ZZ Resection of Cervical Vertebral Disc, Open Approach (ICD-10-PCS; 2020-04-30)
DX: M50.122 Cervical disc disorder at C5-C6 level with radiculopathy (principal); Z79.02 Long term (current) use of antithrombotics/antiplatelets; Z79.899 Other long term (current) drug therapy; Z88.5 Allergy status to narcotic agent
CPT/HCPCS: 76000; C1713; C1776; J0690; J1100; J2001; J2270; J2405; J2704; J3010; J3490

== ENCOUNTER 2020-06-09 16:40 | Emergency (ER) | payer MEDICARE ==
--- NOTE | 2020-06-09 16:59 | RAD ---
LEFT ANKLE THREE VIEWS: 06/09/20 INDICATION: History of left ankle injury. COMPARISON: None. FINDINGS: There are small avulsion fractures involving the distal tip of the lateral malleolus with two separat e ossific fragments. There is soft tissue swelling overlying the fracture site. Ankle mortise is pres erved. The visualized hindfoot appears within normal limits. IMPRESSION: Small distal avulsion injury of the lateral malleolus in the region of the calcaneofibular ligament. There is soft tissue swelling in this region. POS: BH
[2020-06-09] MEDS ORDERED: HYDROcodone/Acetaminophen 10/325 mg Tablet ONE (17:34)
== END 2020-06-09 18:10 | disposition home or self-care (01) ==
LOC: ERS 16:40
DX: S82.62XA Displaced fracture of lateral malleolus of left fibula, initial encounter for closed fracture (principal); I25.10 Atherosclerotic heart disease of native coronary artery without angina pectoris; J44.9 Chronic obstructive pulmonary disease, unspecified; I10 Essential (primary) hypertension; K21.9 Gastro-esophageal reflux disease without esophagitis; I25.2 Old myocardial infarction; F32.9 Major depressive disorder, single episode, unspecified; F17.210 Nicotine dependence, cigarettes, uncomplicated; X50.1XXA Overexertion from prolonged static or awkward postures, initial encounter; Y93.01 Activity, walking, marching and hiking
CPT/HCPCS: 29515

== ENCOUNTER 2020-09-25 10:44 | Outpatient (CLI) | payer MEDICARE ==
--- NOTE | 2020-09-25 11:07 | RAD ---
XR Cerv Sp Ap Lat STANDARD History: Cervical spondylolysis Comparison: Radiograph June 26, 2020 Findings: Similar appearance C5-C7 ACDF hardware. Grade 1 2-3 mm C4/C5 anterolisthesis. No acute frac ture or malalignment. No displacement of discectomy cage. Visualized posterior ribs are intact. Scarring in both lung apices. Impression: Similar postoperative appearance without complication.
== END 2020-09-25 10:45 | disposition home or self-care (01) ==
LOC: TBSIIMAG 10:44
PROVIDERS: ATTEND Physician Assistant
DX: M43.02 Spondylolysis, cervical region (principal); Z98.1 Arthrodesis status
CPT/HCPCS: 72040

== ENCOUNTER 2020-11-22 21:04 | Inpatient (IN) | payer MEDICARE ==
[~2020-11-22 21:04] MED LIST changes: -ISOVUE-370 76%-LOCM 1 ML ONE; +Iopamidol-370 76% 500 ML 1 ML ONE
[2020-11-22] MEDS ORDERED: Ondansetron PF 4 MG/2 ML Vial ONE (21:40)
--- NOTE | 2020-11-22 21:44 | CT ---
Exam: CTA chest with 3-D rendering: CTA abdomen with 3-D rendering: HISTORY: Severe abdominal pain, radiating to the back. COMPARISON: 07/20/2019 TECHNIQUE: CT angiogram of the thoracic and abdominal aorta performed in the axial plane. Three-dimen sional reformatted images are submitted for interpretation. FINDINGS: Chest CT: Mediastinum: No mass, lymphadenopathy or hematoma Heart: Normal heart size. No significant pericardial fluid. Coronary arteries: Scattered atherosclerosis. Trachea and central bronchi: Patent Pleural spaces: No pleural effusion. Right lung: Emphysematous changes, without consolidation. Left lung: Emphysematous changes, without consolidation. Pneumothorax: None Abdomen CT: Gallbladder: Unremarkable Portal vein: Cannot be assessed due to timing of contrast bolus. Solid organs: Appropriate arterial phase enhancement of the liver, spleen, pancreas and adrenal gland s Kidneys: Symmetric enhancement. No obstructive uropathy. Mesentery: Limited evaluation the mesentery due to decreased visceral fat. No obvious mass, adenopath y or free air or fluid Alimentary canal: Limited evaluation of the alimentary canal by the lack of oral contrast. There is m oderate distention of the stomach secondary to ingested material.. Osseous structures: No lytic or blastic lesions. CT ANGIOGRAM: There is atherosclerosis of the visualized thoracic and abdominal aorta. No evidence of dissection or periaortic fat stranding. There is no evidence of aneurysm. There is no significant stenosis at the origin of the celiac artery, superior mesenteric artery, sena tary renal arteries and inferior mesenteric artery. Visualized iliac arteries do not demonstrate any atherosclerotic disease. There is mild atherosclerosis in the proximal celiac artery. IMPRESSION: 1. No CT evidence for aortic aneurysm or aortic dissection. 2. Nonvisualization of the portal vein which is likely due to technique. If there is concern for port al vein thrombus, consider ultrasound evaluation.
[2020-11-22 21:54] LABS: #Basophils 0.1 thou/uL (0.0-0.2); #Eosinphils 0.1 thou/uL (0.0-0.7); #Lymphocytes 2.8 thou/uL (1.20-3.40); #Monocytes 0.5 thou/uL (0.11-0.59); #Neutrophils 10.4 thou/uL (1.40-6.50); %Basophils 0.8 % (0.0-1.0); %Eosinophils 0.7 % (0.0-10.0); %Lymphocytes 20.3 % (21.0-51.0); %Monocytes 3.8 % (0.0-10.0); %Neutrophils 74.4 % (42.0-75.0); Hemoglobin 13.8 g/dL (14.0-18.0); Mean Corpuscular HGB CONC 31.8 g/dL (32.0-36.0); Mean Corpuscular Hemoglobin 31.5 pg (27.0-31.0); Mean Corpuscular Volume 99.1 fL (78.0-98.0); Mean Platelet Volume 8.1 fL (7.4-10.4); Platelet Count 236 thou/uL (130-400); RBC Distribution Width 12.2 % (11.5-14.5); Red Blood Cell (RBC) Count 4.38 mill/uL (4.70-6.10)
[2020-11-22 22:16] LABS: ALT (SGPT) 8 U/L (8-55); AST (SGOT) 12 U/L (5-34); Albumin 3.6 g/dL (3.4-4.8); Alkaline Phosphatase 83 U/L (40-110); Anion Gap 15 mmol/L (10-20); BUN (Urea Nitrogen) 12 mg/dL (8.4-25.7); Bilirubin, Total 0.3 mg/dL (0.2-1.2); Calc. Creatinine Clearance 0 mL/min (70-130); Calcium 8.3 mg/dL (7.8-10.44); Carbon Dioxide 25 mmol/L (23-31); Chloride 103 mmol/L (98-107); Globulin 1.7 g/dL (2.4-3.5); Glucose 92 mg/dL (80-115); Potassium 4.1 mmol/L (3.5-5.1); Protein, Total 5.3 g/dL (5.8-8.1); Sodium 139 mmol/L (136-145)
[2020-11-22] MEDS ORDERED: Vancomycin 1 GM/200 ML BAG ONE (22:16)
[2020-11-23] MEDS ORDERED: Ondansetron PF 4 MG/2 ML Vial IVP PRN (00:20)
[2020-11-23] MEDS ORDERED: Ondansetron ODT 4 MG TAB PO PRN (00:20)
[2020-11-23] MEDS ORDERED: Sodium Chloride 0.9% 1,000 ML IV SCH (00:30)
[2020-11-23 01:13] LABS: Bilirubin Negative (Negative); Blood, Urine Negative (Negative); Clarity Clear (Clear); Glucose, Urine (Dipstick) Normal (Negative); Ketone, Urine Negative (Negative); Leukocyte Negative Leu/uL (Negative); Nitrite Negative (Negative); Protein, Urine (Dipstick) 10 mg/dL (Neg-Trace); Specific Gravity, Urine 1.033 (1.002-1.036); Urobilinogen Normal mg/dL (Less than 2)
[2020-11-23 01:51] VITALS: BMI 17.6
[2020-11-23 01:58] LABS: Lactic Acid 2.9 mmol/L (0.5-2.2)
[2020-11-23] MEDS ORDERED: FLU VACC QS2020-21(65YR UP)/PF 240 MCG/0.7 ML SYRINGE IM ONE (02:15)
[2020-11-23] MEDS: Nicotine 14 MG PATCH TD SCH ×2 (02:31→12:03)
[2020-11-23] MEDS: Sodium Chloride 0.9% 1,000 ML IV SCH ×3 (02:33→14:23)
[2020-11-23] MEDS: Piperacillin/Tazobactam 4.5 GM in Sodium Chloride 0.9% 100 ML IVPB SCH ×3 (02:55→17:34)
--- NOTE | 2020-11-23 03:10 | PDOC.HHP ---
Hospitalist HPI - History of Present Illness History of Present Illness: ADMISSION DATE: 11/22/2020 TIME OF ASSESSMENT: 2330 PRIMARY CARE PHYSICIAN: Zuleyka Barrera CHIEF COMPLAINT: Stomach pain HPI: The patient is a 65-year-old male past medical history significant for CAD, COPD, hypertension, GERD. He presents to the ER today after he was found slumped on the toilet by his . She had seen him 2 to 3 hours prior to that and he was normal at that time. He states he has abdominal pain radiating to the back with slight nausea. EMS gave him 8 mg of Zofran in route to the hospital. Patient denies any fever, contact with sick persons, chest pain, shortness of breath. He was uncooperative while in the ER with ER staff and would refuse vital signs. He was moaning and yelling while rolling in the bed. They were able to complete a CT of the aorta. Patient describes the pain as a cramping pain. Denies other issues. When I went to examine the patient he was standing on the bed defecating onto the bed and vomiting. He refused to give much of his medical history or HPI. ED COURSE: Vital Signs: Blood pressure 137/79, pulse 96, respiratory rate 19, temp 98.8 rectal, O2 saturation 98% on room air He was administered Bentyl 20 mg IM, 2 L normal saline, vancomycin 1 g IV. PAST MEDICAL HISTORY: CAD, COPD, hypertension, GERD, chronic pain, [place] PAST SURGICAL HISTORY: Cardiac stent placement x1, vasectomy SOCIAL HISTORY: Patient lives at home with family. He denies alcohol and drug use. Patient does smoke cigarettes he says he smokes "as much as I want to". FAMILY HISTORY: Patient not answering ALLERGIES: Tramadol CURRENT MEDICATIONS: Patient not answering Hospitalist ROS - Review of Systems Gastrointestinal: reports: nausea, abdominal pain All other systems reviewed; all pertinent +/- noted in HPI/Subj - Medication Medications: Active Medications Generic Name Dose Route Start Last Admin Trade Name Freq PRN Reason Stop Dose Admin Sodium Chloride 1,000 mls @ 150 mls/hr 11/23/20 02:03 11/23/20 02:33 Normal Saline 0.9% IV 1,000 mls .Q6H40M FARIBA Administration Nicotine 14 mg 11/23/20 01:00 11/23/20 02:31 Nicotine 14 Mg Patch TD Not Given Q24HR FARIBA - Exam General Appearance: awake alert, ill appearing Eye: PERRL ENT: normocephalic atraumatic Neck: supple Heart: RRR, no murmur, no gallops, no rubs, normal peripheral pulses Respiratory: CTAB, no wheezes, no rales, no ronchi, normal chest expansion Gastrointestinal: soft, normal bowel sounds, no palpable masses, voluntary guarding Extremities: no edema Skin: normal turgor Neurological: no focal deficits Musculoskeletal: no muscle wasting Psychiatric: A&O x 3, flat affect Hospitalist Results - Labs Result Diagrams: 11/22/20 21:36 11/22/20 21:36 Lab results: WBC 14.0 thou/uL (4.8-10.8) H 11/22/20 21:36 Hgb 13.8 g/dL (14.0-18.0) L 11/22/20 21:36 Hct 43.4 % (42.0-52.0) 11/22/20 21:36 MCV 99.1 fL (78.0-98.0) H 11/22/20 21:36 Plt Count 236 thou/uL (130-400) 11/22/20 21:36 Neutrophils % 74.4 % (42.0-75.0) 11/22/20 21:36 Sodium 139 mmol/L (136-145) 11/22/20 21:36 Potassium 4.1 mmol/L (3.5-5.1) 11/22/20 21:36 Chloride 103 mmol/L (98-107) 11/22/20 21:36 Carbon Dioxide 25 mmol/L (23-31) 11/22/20 21:36 BUN 12 mg/dL (8.4-25.7) 11/22/20 21:36 Creatinine 1.13 mg/dL (0.7-1.3) 11/22/20 21:36 Glucose 92 mg/dL (80-115) 11/22/20 21:36 Lactic Acid 2.9 mmol/L (0.5-2.2) H 11/23/20 01:31 Calcium 8.3 mg/dL (7.8-10.44) 11/22/20 21:36 Total Bilirubin 0.3 mg/dL (0.2-1.2) 11/22/20 21:36 AST 12 U/L (5-34) 11/22/20 21:36 ALT 8 U/L (8-55) 11/22/20 21:36 Alkaline Phosphatase 83 U/L (40-110) 11/22/20 21:36 Troponin I 0.010 ng/mL (< 0.028) 11/22/20 21:36 B-Natriuretic Peptide 17.7 pg/mL (0-100) 11/22/20 21:36 Serum Total Protein 5.3 g/dL (5.8-8.1) L 11/22/20 21:36 Albumin 3.6 g/dL (3.4-4.8) 11/22/20 21:36 Urine Ketones Negative mg/dL (Negative) 11/23/20 00:35 Urine Blood Negative (Negative) 11/23/20 00:35 Urine Nitrite Negative (Negative) 11/23/20 00:35 Ur Leukocyte Esterase Negative Cuco/uL (Negative) 11/23/20 00:35 - EKG Interpretation EKG: Sinus tachycardia 121 bpm - Radiology Interpretation CT scan - abdomen Status: report reviewed by me Additional Comment: TECHNIQUE: CT angiogram of the thoracic and abdominal aorta performed in the axial plane. Three-dimensional reformatted images are submitted for interpretation. FINDINGS: Chest CT: Mediastinum: No mass, lymphadenopathy or hematoma Heart: Normal heart size. No significant pericardial fluid. Coronary arteries: Scattered atherosclerosis. Trachea and central bronchi: Patent Pleural spaces: No pleural effusion. Right lung: Emphysematous changes, without consolidation. Left lung: Emphysematous changes, without consolidation. Pneumothorax: None Abdomen CT: Gallbladder: Unremarkable Portal vein: Cannot be assessed due to timing of contrast bolus. Solid organs: Appropriate arterial phase enhancement of the liver, spleen, pancreas and adrenal glands Kidneys: Symmetric enhancement. No obstructive uropathy. Mesentery: Limited evaluation the mesentery due to decreased visceral fat. No obvious mass, adenopathy or free air or fluid Alimentary canal: Limited evaluation of the alimentary canal by the lack of oral contrast. There is moderate distention of the stomach secondary to ingested mate rial. Osseous structures: No lytic or blastic lesions. CT ANGIOGRAM: There is atherosclerosis of the visualized thoracic and abdominal aorta. No evidence of dissection or periaortic fat stranding. There is no evidence of aneurysm. There is no significant stenosis at the origin of the celiac artery, superior mesenteric artery, solitary renal arteries and inferior mesenteric artery. Visualized iliac arteries do not demonstrate any atherosclerotic disease. There is mild atherosclerosis in the proximal celiac artery. IMPRESSION: 1. No CT evidence for aortic aneurysm or aortic dissection. 2. Nonvisualization of the portal vein which is likely due to technique. If there is concern for portal vein thrombus, consider ultrasound evaluation. Hospitalist H&P A/P - Plan Plan: Abdominal pain Large amount of bowel seen on CT, bowel sounds present Zofran available as needed Stool samples sent for study N.p.o. except for ice chips at this time Sepsis Broad-spectrum antibiotics to continue Tylenol as needed available Awaiting blood, urine, stool cultures Chest x-ray ordered Continue IV fluids Recheck lactic acid in 2 hours Hypertension Monitor vital signs every 4 hours Restart home medications once able to verify them Tobacco abuse Nicotine patch available wanted VTE prophylaxis in place with SCDs CODE STATUS: Full Surrogate decision-maker is his
[2020-11-23 05:22] LABS: SARS-CoV-2 MS2 Positive; SARS-CoV-2 N Gene Negative; SARS-CoV-2 S Gene Negative; SARS-CoV-2 by NAA Not Detected (NotDetected); SARS-CoV-2 orf1ab Negative
[2020-11-23 05:37] LABS: #Lymphocytes 1.1 thou/uL (1.20-3.40); #Monocytes 0.7 thou/uL (0.11-0.59); #Neutrophils 10.3 thou/uL (1.40-6.50); %Basophils 0.2 % (0.0-1.0); %Eosinophils 0.1 % (0.0-10.0); %Lymphocytes 8.9 % (21.0-51.0); %Monocytes 5.6 % (0.0-10.0); %Neutrophils 85.3 % (42.0-75.0); Hemoglobin 12.6 g/dL (14.0-18.0); Mean Corpuscular HGB CONC 31.5 g/dL (32.0-36.0); Mean Corpuscular Hemoglobin 31.2 pg (27.0-31.0); Mean Corpuscular Volume 99.1 fL (78.0-98.0); Mean Platelet Volume 7.9 fL (7.4-10.4); Platelet Count 241 thou/uL (130-400); RBC Distribution Width 12.1 % (11.5-14.5); Red Blood Cell (RBC) Count 4.04 mill/uL (4.70-6.10)
[2020-11-23 06:01] LABS: Anion Gap 13 mmol/L (10-20); BUN (Urea Nitrogen) 11 mg/dL (8.4-25.7); Calc. Creatinine Clearance 49 mL/min (70-130); Calcium 8.1 mg/dL (7.8-10.44); Carbon Dioxide 23 mmol/L (23-31); Chloride 109 mmol/L (98-107); Glucose 116 mg/dL (80-115); Potassium 4.2 mmol/L (3.5-5.1); Sodium 141 mmol/L (136-145)
--- NOTE | 2020-11-23 08:14 | RAD ---
Portable frontal chest radiograph: 11/23/2020 COMPARISON: 04/11/2020 HISTORY: Sepsis FINDINGS: Increased linear interstitial density noted bilaterally with pulmonary hyperinflation. Ther e is vascular calcification of the aortic arch. No pneumothorax, focal consolidation, or alveolar edema. IMPRESSION: Interstitial prominence and pulmonary hyperinflation with no focal consolidation or evide nce of edema.
[2020-11-23] MEDS: Famotidine/PF 20 mg/2ml Vial SLOW IVP SCH ×2 (08:28→19:42)
[2020-11-23] MEDS ORDERED: Pantoprazole 40 MG VIAL IVP SCH (09:00)
[2020-11-23] MEDS ORDERED: Morphine 2 MG/ML VIAL SLOW IVP SCH (09:30)
[2020-11-23] MEDS: Acetaminophen/Codeine 30-300mg Tablet PO PRN ×2 (15:28→21:30)
--- NOTE | 2020-11-23 16:59 | PDOC.HOSPP ---
- Subjective Encounter Date: 11/23/20 Encounter Time: 13:15 Subjective: no abd pain now, has low back ache no nausea or vomiting is passing stools and flatus - Objective Vital Signs & Weight: Vital Signs (12 hours) Temp Pulse Resp BP Pulse Ox 11/23/20 12:00 99.2 F 78 20 138/75 96 11/23/20 08:00 93 L 11/23/20 07:59 99.4 F 89 20 175/50 H 93 L Weight Admit Weight 116 lb Weight 116 lb I&O: 11/22/20 11/23/20 11/24/20 06:59 06:59 06:59 Intake Total 700 Output Total 3 900 Balance 697 -900 Result Diagrams: 11/23/20 05:25 11/23/20 05:25 Hospitalist ROS - Medication Medications: Active Medications Generic Name Dose Route Start Last Admin Trade Name Freq PRN Reason Stop Dose Admin Acetaminophen/Codeine Phosphate 1 tab 11/23/20 15:14 11/23/20 15:28 Acetaminophen/Codeine 30-300mg Tablet PO 1 tab Q6H PRN Administration Pain Albuterol/Ipratropium 3 ml 11/23/20 05:32 11/23/20 14:21 Ipratropium/Albuterol Sulfate 3 Ml Neb NEB 3 ml Q4H PRN Administration Wheezing Famotidine 20 mg 11/23/20 09:00 11/23/20 08:28 Famotidine/Pf 20 Mg/2ml Vial SLOW IVP 20 mg Q12HR FARIBA Administration Piperacillin Sod/Tazobactam 100 mls @ 200 mls/hr 11/23/20 02:00 11/23/20 09:56 Sod 4.5 gm/ Sodium Chloride IVPB 100 mls 0200,1000,1800 FARIBA Administration Sodium Chloride 1,000 mls @ 150 mls/hr 11/23/20 02:03 11/23/20 14:23 Normal Saline 0.9% IV 1,000 mls .Q6H40M FARIBA Administration Nicotine 14 mg 11/23/20 01:00 11/23/20 12:03 Nicotine 14 Mg Patch TD 14 mg Q24HR FARIBA Administration - Exam General Appearance: awake alert Eye: PERRL, anicteric sclera ENT: no oropharyngeal lesions, dry oral mucosa Neck: supple, no JVD Heart: RRR, no murmur Respiratory: no wheezes, no rales, rhonchi Gastrointestinal: soft, non-tender, non-distended, normal bowel sounds, no guarding, no rigidity Extremities: no cyanosis, no edema Neurological: cranial nerve grossly intact, no focal deficits Psychiatric: A&O x 3 Hosp A/P (1) Abdominal pain Code(s): R10.9 - UNSPECIFIED ABDOMINAL PAIN Status: Resolved Qualifiers: Abdominal location: generalized Qualified Code(s): R10.84 - Generalized abdominal pain (2) Constipation Code(s): K59.00 - CONSTIPATION, UNSPECIFIED Status: Resolved (3) Severe dehydration Code(s): E86.0 - DEHYDRATION Status: Acute (4) Tobacco abuse Code(s): Z72.0 - TOBACCO USE Status: Chronic (5) CAD (coronary artery disease) Code(s): I25.10 - ATHSCL HEART DISEASE OF [place] CORONARY ARTERY W/O ANG PCTRS Status: Chronic Qualifiers: Coronary Disease-Associated Artery/Lesion type: [place] artery [place] vs. transplanted heart: [place] heart Associated angina: without angina Qualified Code(s): I25.10 - Atherosclerotic heart disease of [place] coronary artery without angina pectoris (6) COPD (chronic obstructive pulmonary disease) Status: Chronic Qualifiers: COPD type: chronic bronchitis Chronic bronchitis type: unspecified Qualified Code(s): J42 - Unspecified chronic bronchitis (7) Chronic pain Code(s): G89.29 - OTHER CHRONIC PAIN Status: Chronic Qualifiers: Chronic pain type: chronic pain syndrome Qualified Code(s): G89.4 - Chronic pain syndrome (8) GERD (gastroesophageal reflux disease) Code(s): K21.9 - GASTRO-ESOPHAGEAL REFLUX DISEASE WITHOUT ESOPHAGITIS Status: Chronic Qualifiers: Esophagitis presence: esophagitis presence not specified Qualified Code(s): K21.9 - Gastro-esophageal reflux disease without esophagitis (9) HTN (hypertension) Code(s): I10 - ESSENTIAL (PRIMARY) HYPERTENSION Status: Chronic Qualifiers: Hypertension type: essential hypertension - Plan continue iv hydration blood cs x2 is -ve, ua is -ve for infection, stool studies are -ve for infection is on zosyn, will dc it in am dc plan in am encourage po intake to ambulate as tolerated in room and hallway
[2020-11-23] MEDS: Acetaminophen 325 MG TAB PO PRN (17:34)
[2020-11-23] MEDS ORDERED: Vancomycin 1 GM in Premix Bag 1 BAG IVPB SCH (22:00)
[2020-11-24] MEDS: Sodium Chloride 0.9% 1,000 ML IV SCH ×3 (00:05→13:13)
[2020-11-24] MEDS: Piperacillin/Tazobactam 4.5 GM in Sodium Chloride 0.9% 100 ML IVPB SCH ×3 (01:45→09:45)
[2020-11-24] MEDS: Acetaminophen 325 MG TAB PO PRN (02:46)
[2020-11-24] MEDS: Acetaminophen/Codeine 30-300mg Tablet PO PRN ×2 (03:37→10:17)
[2020-11-24 05:28] VITALS: TEMP 98.4
[2020-11-24] MEDS: Nicotine 14 MG PATCH TD SCH (05:29)
[2020-11-24 06:30] LABS: #Basophils 0.1 thou/uL (0.0-0.2); #Eosinphils 0.2 thou/uL (0.0-0.7); #Lymphocytes 2.7 thou/uL (1.20-3.40); #Monocytes 0.6 thou/uL (0.11-0.59); #Neutrophils 7.2 thou/uL (1.40-6.50); %Basophils 0.8 % (0.0-1.0); %Eosinophils 1.8 % (0.0-10.0); %Lymphocytes 24.9 % (21.0-51.0); %Monocytes 5.5 % (0.0-10.0); %Neutrophils 66.9 % (42.0-75.0); Hemoglobin 10.5 g/dL (14.0-18.0); Mean Corpuscular Hemoglobin 32.6 pg (27.0-31.0); Mean Corpuscular Volume 98.8 fL (78.0-98.0); Mean Platelet Volume 7.8 fL (7.4-10.4); Platelet Count 198 thou/uL (130-400); RBC Distribution Width 12.3 % (11.5-14.5); Red Blood Cell (RBC) Count 3.23 mill/uL (4.70-6.10); White Blood Cell (WBC) Count 10.8 thou/uL (4.8-10.8)
[2020-11-24 06:48] LABS: Anion Gap 9 mmol/L (10-20); BUN (Urea Nitrogen) 4 mg/dL (8.4-25.7); Calc. Creatinine Clearance 78 mL/min (70-130); Calcium 7.7 mg/dL (7.8-10.44); Carbon Dioxide 26 mmol/L (23-31); Glucose 100 mg/dL (80-115); Potassium 3.5 mmol/L (3.5-5.1); Sodium 139 mmol/L (136-145)
[2020-11-24 06:53] LABS: Chloride 108 mmol/L (98-107)
[2020-11-24] MEDS ORDERED: Nicotine 14 MG PATCH TD SCH (09:00)
[2020-11-24] MEDS: Famotidine/PF 20 mg/2ml Vial SLOW IVP SCH (09:40)
[2020-11-24 12:35] VITALS: BP 180/88
--- NOTE | 2020-11-24 15:58 | DIS ---
DATE OF ADMISSION: 11/22/2020 DATE OF DISCHARGE: 11/24/2020 DISCHARGE DISPOSITION: To home. PRIMARY DISCHARGE DIAGNOSES: 1. Abdominal pain, resolved. 2. Constipation, resolved. 3. Severe dehydration, resolved. SECONDARY DISCHARGE DIAGNOSES: 1. History of chronic obstructive pulmonary disease. 2. Coronary artery disease. 3. Chronic pain syndrome. 4. Gastroesophageal reflux disease. 5. . 6. Tobacco abuse. PROCEDURES DONE DURING HOSPITALIZATION: CT dissection protocol done, showed no CT evidence of aortic dissection or aneurysm. Chest x-ray done showed no acute infiltrate. Stool for Campylobacter antigen, shiga toxin, and C diff were all negative. Stool for E coli was negative. Urine culture, no growth. Blood cultures x2, no growth. He had a white count of 14 on the day of admission, discharge numbers of 10, H and H 10 and 31, platelet count is 198 with 66% neutrophils. Discharge BUN and creatinine are 4 and 0.6. BNP 17. LFTs are within normal limits. COVID-19 PCR was not detected on 11/23/2020. UA showed no evidence of UTI. DISCHARGE MEDICATIONS: The patient to continue all his home medication as before, 1. Toprol-XL 100 mg p.o. q.p.m. 2. Protonix 40 mg twice daily. 3. Albuterol inhaler q.6 hourly p.r.n. 4. Multivitamin 1 tablet once daily. 5. Lisinopril 5 mg p.o. q.p.m. 6. DuoNebs q.6 hourly. 7. Atorvastatin 10 mg daily. 8. Tylenol No. 4 q.6 hourly p.r.n. ALLERGIES: TO TRAMADOL. DISCHARGE PLAN: The patient to follow up with his primary care physician and nurse practitioner, Zuleyka Barrera, in 1 week. BRIEF COURSE DURING HOSPITALIZATION: The patient initially came to ER with complaints of generalized abdominal pain radiating to the back. In view of this history, the patient was admitted to medical floor. He has had a CT dissection protocol done, which did not show any acute abnormalities. The patient had constipation, which got resolved during his stay. His stool exams have been negative for any acute infectious etiology. The patient's abdominal pain and initial nausea and vomiting all completely resolved. He is ambulating and eating well prior to discharge. Please note, I have seen and examined the patient on the day of discharge. Job ID: [id number]
== END 2020-11-24 13:38 | disposition home or self-care (01) | DRG 872 ==
LOC: ERS 21:04 → T4-A 22:41 → T4-B 11-23 11:25
PROVIDERS: ADMIT Student in an Organized Health Care Education/Training Program; ATTEND Internal Medicine
DX: A41.9 Sepsis, unspecified organism (principal); Z20.822 Contact with and (suspected) exposure to COVID-19; F17.210 Nicotine dependence, cigarettes, uncomplicated; K59.00 Constipation, unspecified; E86.0 Dehydration; J44.9 Chronic obstructive pulmonary disease, unspecified; G89.4 Chronic pain syndrome; K21.9 Gastro-esophageal reflux disease without esophagitis; I25.10 Atherosclerotic heart disease of native coronary artery without angina pectoris; F41.9 Anxiety disorder, unspecified; R10.84 Generalized abdominal pain; I25.2 Old myocardial infarction; Z98.52 Vasectomy status; Z95.5 Presence of coronary angioplasty implant and graft
CPT/HCPCS: 36415; 71045; 71275; 74174; 80048; 80053; 81003; 83605; 83880; 84484; 85025; 87040; 87045; 87046; 87086; 87324; 87427; 87449; 87635; 87798; 93005; 94640; 94760; J0500; J2270; J2405; J2543; J3370; J3490; J7620; Q9967; S0028; U0003

== ENCOUNTER 2020-12-21 14:29 | Outpatient (CLI) | payer MEDICARE ==
--- NOTE | 2020-12-21 16:23 | ULT ---
ULTRASOUND ABDOMEN: Date: 12/21/2020 HISTORY: Severe epigastric pain and right upper quadrant pain radiating to the back, worse after eating. FINDINGS: The spleen is not visualized. The liver, gallbladder, kidneys, pancreas, and visualized portions of t he IVC are unremarkable. There are aortic calcifications without evidence of aneurysmal dilatation of the abdominal aorta. The common duct measures 6.0 mm in diameter. No free fluid is seen. IMPRESSION: 1. Nonvisualization of the spleen. 2. No evidence of cholelithiasis. POS: [facility]
== END 2020-12-21 14:30 | disposition home or self-care (01) ==
LOC: BICULT 14:29
PROVIDERS: ATTEND Nurse Practitioner Family
DX: R10.9 Unspecified abdominal pain (principal)
CPT/HCPCS: 93975

== ENCOUNTER 2021-02-02 15:34 | Observation (INO) | payer MEDICARE ==
[2021-02-02 16:07] LABS: #Basophils 0.1 thou/uL (0.0-0.2); #Eosinphils 0.1 thou/uL (0.0-0.7); #Lymphocytes 2.2 thou/uL (1.20-3.40); #Monocytes 0.3 thou/uL (0.11-0.59); #Neutrophils 2.3 thou/uL (1.40-6.50); %Basophils 1.9 % (0.0-1.0); %Eosinophils 2.4 % (0.0-10.0); %Lymphocytes 43.1 % (21.0-51.0); %Monocytes 6.5 % (0.0-10.0); %Neutrophils 46.2 % (42.0-75.0); Hemoglobin 12.2 g/dL (14.0-18.0); Mean Corpuscular HGB CONC 32.4 g/dL (32.0-36.0); Mean Corpuscular Hemoglobin 32.4 pg (27.0-31.0); Mean Corpuscular Volume 99.8 fL (78.0-98.0); Mean Platelet Volume 7.7 fL (7.4-10.4); Platelet Count 256 thou/uL (130-400); Red Blood Cell (RBC) Count 3.78 mill/uL (4.70-6.10); White Blood Cell (WBC) Count 5.1 thou/uL (4.8-10.8)
[2021-02-02] MEDS ORDERED: Aspirin Chewable 81 MG TAB ONE (16:18)
[2021-02-02] MEDS ORDERED: Ondansetron PF 4 MG/2 ML Vial ONE (16:22)
[2021-02-02] MEDS ORDERED: Morphine 4 MG/ML VIAL ONE ×2 (16:22→17:25)
[2021-02-02 16:29] LABS: ALT (SGPT) 21 U/L (8-55); AST (SGOT) 30 U/L (5-34); Alkaline Phosphatase 77 U/L (40-110); Anion Gap 14 mmol/L (10-20); BUN (Urea Nitrogen) 12 mg/dL (8.4-25.7); Bilirubin, Total 0.2 mg/dL (0.2-1.2); CK (CPK) 575 U/L (30-200); Calc. Creatinine Clearance 0 mL/min (70-130); Calcium 8.5 mg/dL (7.8-10.44); Carbon Dioxide 23 mmol/L (23-31); Chloride 104 mmol/L (98-107); Globulin 2.4 g/dL (2.4-3.5); Glucose 117 mg/dL (80-115); Lipase 11 U/L (8-78); Potassium 3.9 mmol/L (3.5-5.1); Protein, Total 6.4 g/dL (5.8-8.1); Sodium 137 mmol/L (136-145)
[2021-02-02] MEDS ORDERED: Mag-Al 1200 mg/1200 mg/30 ML UDCUP ONE (18:42)
[2021-02-02] MEDS ORDERED: Lidocaine Viscous Sol 2% 15 ml UD Cup ONE (18:42)
[2021-02-02] MEDS ORDERED: Nitroglycerin 0.4 MG TAB (25 Tab Bottle) SL PRN (18:47)
[2021-02-02] MEDS ORDERED: Ondansetron ODT 4 MG TAB PO PRN (18:56)
[2021-02-02] MEDS ORDERED: Ondansetron PF 4 MG/2 ML Vial IVP PRN (18:56)
[2021-02-02] MEDS ORDERED: Senokot S 8.6-50 MG TAB PO PRN (18:56)
[2021-02-02] MEDS ORDERED: Guaifenesin DM 100-10/5 ML UDCUP PO PRN (18:56)
[2021-02-02] MEDS ORDERED: Albuterol 200 PUFF (6.7GM INHALER) INH PRN (18:57)
[2021-02-02] MEDS: Acetaminophen 325 MG TAB PO PRN (20:40)
[2021-02-02] MEDS ORDERED: Famotidine 20 MG TAB PO SCH (21:00)
[2021-02-02] MEDS ORDERED: Nicotine 14 MG PATCH TD SCH (21:00)
[2021-02-02 21:06] VITALS: BMI 18.7
[2021-02-02] MEDS: Morphine 2 MG/ML VIAL SLOW IVP PRN (22:40)
[2021-02-03] MEDS: Nitroglycerin 2% Ointment 1 INCH/1 GM Packet TOP SCH ×2 (01:09→06:11)
[2021-02-03 04:45] LABS: SARS-CoV-2 PCR by NAA Not Detected (NotDetected)
[2021-02-03 05:30] LABS: #Basophils 0.1 thou/uL (0.0-0.2); #Eosinphils 0.2 thou/uL (0.0-0.7); #Lymphocytes 2.7 thou/uL (1.20-3.40); #Monocytes 0.4 thou/uL (0.11-0.59); #Neutrophils 2.4 thou/uL (1.40-6.50); %Basophils 1.7 % (0.0-1.0); %Eosinophils 3.9 % (0.0-10.0); %Lymphocytes 45.9 % (21.0-51.0); %Monocytes 7.3 % (0.0-10.0); %Neutrophils 41.1 % (42.0-75.0); Hemoglobin 12.2 g/dL (14.0-18.0); Mean Corpuscular HGB CONC 31.8 g/dL (32.0-36.0); Mean Corpuscular Hemoglobin 31.9 pg (27.0-31.0); Platelet Count 267 thou/uL (130-400); RBC Distribution Width 12.1 % (11.5-14.5); Red Blood Cell (RBC) Count 3.82 mill/uL (4.70-6.10); White Blood Cell (WBC) Count 5.9 thou/uL (4.8-10.8)
[2021-02-03] MEDS: Morphine 2 MG/ML VIAL SLOW IVP PRN (05:40)
[2021-02-03] MEDS: Acetaminophen 325 MG TAB PO PRN (05:41)
[2021-02-03 05:51] LABS: Anion Gap 13 mmol/L (10-20); BUN (Urea Nitrogen) 12 mg/dL (8.4-25.7); Calc. Creatinine Clearance 86 mL/min (70-130); Calcium 8.3 mg/dL (7.8-10.44); Carbon Dioxide 24 mmol/L (23-31); Cardiac Risk 2.3 (Less than 4.5); Chloride 103 mmol/L (98-107); Cholesterol 159 mg/dl (< 200 Desired); Glucose 80 mg/dL (80-115); HDL Cholesterol 68 mg/dL (>60 Neg Risk); LDL Cholesterol, Calculated 75 mg/dL; Magnesium 2.3 mg/dL (1.6-2.6); Potassium 4.2 mmol/L (3.5-5.1); Sodium 136 mmol/L (136-145); Triglycerides 82 mg/dL (Less than 150)
[2021-02-03 08:30] VITALS: BP 163/88; TEMP 98
[2021-02-03] MEDS ORDERED: Aspirin Chewable 81 MG TAB PO SCH (09:00)
[2021-02-03] MEDS ORDERED: Atorvastatin Calcium 10 MG TAB PO SCH (09:00)
[2021-02-03] MEDS ORDERED: Amlodipine 5 MG TAB PO SCH (09:00)
[2021-02-03] MEDS ORDERED: Mag-Al Plus 1200 MG/1200 MG/120 MG/30 ML UDCUP PO PRN (09:03)
== END 2021-02-03 11:47 | disposition home or self-care (01) ==
LOC: ERS 15:34 → 2SW 18:21
PROVIDERS: ADMIT Internal Medicine; ATTEND Internal Medicine
DX: R07.9 Chest pain, unspecified (principal); I25.2 Old myocardial infarction; I25.10 Atherosclerotic heart disease of native coronary artery without angina pectoris; I10 Essential (primary) hypertension; E78.5 Hyperlipidemia, unspecified; K21.9 Gastro-esophageal reflux disease without esophagitis; J44.9 Chronic obstructive pulmonary disease, unspecified; F17.210 Nicotine dependence, cigarettes, uncomplicated; G89.4 Chronic pain syndrome; I77.811 Abdominal aortic ectasia; I77.810 Thoracic aortic ectasia; I70.0 Atherosclerosis of aorta; I08.3 Combined rheumatic disorders of mitral, aortic and tricuspid valves; R10.9 Unspecified abdominal pain; Z79.899 Other long term (current) drug therapy; Z88.5 Allergy status to narcotic agent; Z95.5 Presence of coronary angioplasty implant and graft; Z20.822 Contact with and (suspected) exposure to COVID-19
CPT/HCPCS: 71045; 71275; 74174; 80048; 80053; 80061; 82550; 83690; 83735; 83880; 84443; 84484 ×2; 85025 ×2; 85379; 93005; 93306; 94640 ×2; 96374; 96375; 96376 ×2; 99285; G0378 ×3; J2270 ×2; U0003; U0005; 36415; 87635; 93010; J2405; J7620; Q9967

== ENCOUNTER 2021-09-09 16:48 | Emergency (ER) | payer MEDICARE ==
[2021-09-09 17:34] LABS: #Eosinphils 0.1 thou/uL (0.0-0.7); #Lymphocytes 1.4 thou/uL (1.20-3.40); #Monocytes 0.4 thou/uL (0.11-0.59); #Neutrophils 4.1 thou/uL (1.40-6.50); %Basophils 0.6 % (0.0-1.0); %Eosinophils 1.7 % (0.0-10.0); %Lymphocytes 22.9 % (21.0-51.0); %Monocytes 5.8 % (0.0-10.0); Hemoglobin 12.4 g/dL (14.0-18.0); Mean Corpuscular HGB CONC 33.2 g/dL (32.0-36.0); Mean Corpuscular Hemoglobin 32.8 pg (27.0-31.0); Mean Corpuscular Volume 98.8 fL (78.0-98.0); Mean Platelet Volume 7.8 fL (7.4-10.4); Platelet Count 307 thou/uL (130-400); RBC Distribution Width 12.2 % (11.5-14.5); Red Blood Cell (RBC) Count 3.78 mill/uL (4.70-6.10)
[2021-09-09 17:57] LABS: ALT (SGPT) 10 U/L (8-55); AST (SGOT) 14 U/L (5-34); Alkaline Phosphatase 89 U/L (40-110); Anion Gap 15 mmol/L (10-20); BUN (Urea Nitrogen) 11 mg/dL (8.4-25.7); Bilirubin, Total 0.2 mg/dL (0.2-1.2); Calc. Creatinine Clearance 0 mL/min (70-130); Calcium 9.3 mg/dL (7.8-10.44); Carbon Dioxide 24 mmol/L (23-31); Chloride 99 mmol/L (98-107); Globulin 2.7 g/dL (2.4-3.5); Glucose 111 mg/dL (80-115); Magnesium 2.1 mg/dL (1.6-2.6); Potassium 4.4 mmol/L (3.5-5.1); Protein, Total 6.7 g/dL (5.8-8.1); Sodium 134 mmol/L (136-145)
[2021-09-09] MEDS ORDERED: Dexamethasone 10 MG/ML VIAL ONE (18:37)
== END 2021-09-09 19:40 | disposition home or self-care (01) ==
LOC: ERS 16:48
DX: J44.1 Chronic obstructive pulmonary disease with (acute) exacerbation (principal); I10 Essential (primary) hypertension; K21.9 Gastro-esophageal reflux disease without esophagitis; I25.2 Old myocardial infarction; F17.210 Nicotine dependence, cigarettes, uncomplicated; Z79.899 Other long term (current) drug therapy
CPT/HCPCS: 36415; 71045; 80053; 83735; 84484; 85025; 93005; 94640; J1100; J7620

== ENCOUNTER 2021-11-19 13:53 | Inpatient (IN) | payer MEDICARE ==
[2021-11-19] MEDS ORDERED: Lorazepam 2 MG/ML VIAL ONE (14:22)
[2021-11-19] MEDS ORDERED: Magnesium 2 GM/50 ML BAG (IN WATER) ONE (14:27)
[2021-11-19 14:34] LABS: Hemoglobin 12.2 g/dL (14.0-18.0); Mean Corpuscular HGB CONC 32.8 g/dL (32.0-36.0); Mean Corpuscular Hemoglobin 32.3 pg (27.0-31.0); Mean Corpuscular Volume 98.5 fL (78.0-98.0); Mean Platelet Volume 8.6 fL (7.4-10.4); Platelet Count 280 thou/uL (130-400); RBC Distribution Width 13.1 % (11.5-14.5); Red Blood Cell (RBC) Count 3.79 mill/uL (4.70-6.10); White Blood Cell (WBC) Count 17.9 thou/uL (4.8-10.8)
[2021-11-19 14:51] LABS: ALT (SGPT) 8 U/L (8-55); AST (SGOT) 11 U/L (5-34); Albumin 3.7 g/dL (3.4-4.8); Alkaline Phosphatase 109 U/L (40-110); Anion Gap 16 mmol/L (10-20); BUN (Urea Nitrogen) 17 mg/dL (8.4-25.7); Bilirubin, Total 0.5 mg/dL (0.2-1.2); Calc. Creatinine Clearance 0 mL/min (70-130); Calcium 9.1 mg/dL (7.8-10.44); Carbon Dioxide 24 mmol/L (23-31); Chloride 100 mmol/L (98-107); Globulin 2.9 g/dL (2.4-3.5); Glucose 130 mg/dL (80-115); Potassium 3.5 mmol/L (3.5-5.1); Protein, Total 6.6 g/dL (5.8-8.1); Sodium 136 mmol/L (136-145)
[2021-11-19] MEDS ORDERED: cefTRIAXone\\ROCEPHIN 2 GM VIAL ONE (15:02)
[2021-11-19] MEDS ORDERED: Azithromycin 500 MG VIAL ONE (15:02)
[2021-11-19 15:05] LABS: Band 8 % (5-11); Lymphocytes 15 % (21-51); MDiff Complete? YES; Macrocytosis SLIGHT = 6-15 cells (100X) (0-5/hpf); Monocytes 3 % (0-10); Neutrophil 74 % (42-75); Platelet Morphology Comment Appears Adequate; Polychromasia SLIGHT = 2-3 cells (100X) (0-2/hpf)
[2021-11-19 15:38] LABS: SARS-CoV-2 NAA Rapid Test Not Detected (NotDetected)
[2021-11-19] MEDS ORDERED: Aspirin Chewable 81 MG TAB ONE (18:37)
[2021-11-19] MEDS ORDERED: Fentanyl 100 MCG/2 ML VIAL ONE (18:37)
[2021-11-19 19:14] LABS: Troponin I Less than 0.010 ng/mL (< 0.028)
[2021-11-19 20:26] VITALS: BMI 18.1
[2021-11-19] MEDS ORDERED: Ondansetron ODT 4 MG TAB PO PRN (20:33)
[2021-11-19] MEDS ORDERED: Ondansetron PF 4 MG/2 ML Vial IVP PRN (20:33)
[2021-11-19] MEDS ORDERED: Acetaminophen 650 MG Suppository PR PRN (20:33)
[2021-11-19] MEDS ORDERED: Pantoprazole 40 MG VIAL IVP SCH (22:00)
[2021-11-19] MEDS ORDERED: methylPREDNISolone Sod Succ/PF 125 MG/2 ML VIAL IVP SCH ×2 (22:00→23:30)
[2021-11-19 22:15] LABS: Troponin I 0.013 ng/mL (< 0.028)
[2021-11-19] MEDS: Morphine 4 MG/ML VIAL SLOW IVP PRN (22:15)
[2021-11-20] MEDS ORDERED: Non-Formulary Item 1 EACH (Fluticasone/Umeclidin/Vilanter [Trelegy Ellipta 100-62.5-25] 1 IH PRN (00:46)
[2021-11-20] MEDS: Morphine 4 MG/ML VIAL SLOW IVP PRN ×4 (02:26→17:27)
[2021-11-20 04:57] LABS: #Lymphocytes 0.5 thou/uL (1.20-3.40); #Monocytes 0.1 thou/uL (0.11-0.59); #Neutrophils 7.2 thou/uL (1.40-6.50); %Eosinophils 0.1 % (0.0-10.0); %Lymphocytes 5.8 % (21.0-51.0); %Monocytes 1.4 % (0.0-10.0); %Neutrophils 92.8 % (42.0-75.0); Mean Corpuscular HGB CONC 33.8 g/dL (32.0-36.0); Mean Corpuscular Volume 97.6 fL (78.0-98.0); Mean Platelet Volume 8.3 fL (7.4-10.4); Platelet Count 266 thou/uL (130-400); RBC Distribution Width 13.2 % (11.5-14.5); Red Blood Cell (RBC) Count 3.35 mill/uL (4.70-6.10); White Blood Cell (WBC) Count 7.7 thou/uL (4.8-10.8)
[2021-11-20 05:16] LABS: Anion Gap 14 mmol/L (10-20); BUN (Urea Nitrogen) 13 mg/dL (8.4-25.7); Calc. Creatinine Clearance 80 mL/min (70-130); Calcium 9.3 mg/dL (7.8-10.44); Carbon Dioxide 24 mmol/L (23-31); Chloride 100 mmol/L (98-107); Glucose 177 mg/dL (80-115); Potassium 3.6 mmol/L (3.5-5.1); Sodium 134 mmol/L (136-145)
[2021-11-20] MEDS: Mometasone 100 MCG/PUFF (1 INHALER) INH SCH ×2 (07:37→19:08)
[2021-11-20] MEDS ORDERED: methylPREDNISolone Sod Succ/PF 125 MG/2 ML VIAL IVP SCH (09:00)
[2021-11-20] MEDS: Enoxaparin Sodium 40 MG/0.4 ML SYRINGE SC SCH (09:15)
[2021-11-20] MEDS: Aspirin 81 mg Enteric Coated Tablet PO SCH (09:15)
[2021-11-20] MEDS: Benzonatate 100 MG CAP PO PRN ×3 (09:16→17:27)
[2021-11-20] MEDS: Acetaminophen 325 MG TAB PO PRN ×2 (09:18→19:09)
[2021-11-20] MEDS ORDERED: cefTRIAXone\\ROCEPHIN 1 GM in Sodium Chloride 0.9% 100 ML IVPB SCH (14:00)
[2021-11-20] MEDS ORDERED: Azithromycin 500 MG in Sodium Chloride 0.9% 250 ML 250 ML IVPB SCH (15:00)
[2021-11-20] MEDS ORDERED: Atorvastatin Calcium 10 MG TAB PO SCH (21:00)
[2021-11-20] MEDS ORDERED: Pantoprazole 40 MG VIAL IVP SCH (21:00)
[2021-11-21] MEDS ORDERED: diphenhydrAMINE 25 MG CAP PO SCH (02:30)
[2021-11-21] MEDS: Mometasone 100 MCG/PUFF (1 INHALER) INH SCH (07:33)
[2021-11-21] MEDS ORDERED: predniSONE 20 MG TAB PO SCH (08:00)
[2021-11-21 08:47] VITALS: BP 165/84; TEMP 98
[2021-11-21] MEDS: Benzonatate 100 MG CAP PO PRN (08:47)
[2021-11-21] MEDS: Aspirin 81 mg Enteric Coated Tablet PO SCH (08:47)
[2021-11-21] MEDS: Enoxaparin Sodium 40 MG/0.4 ML SYRINGE SC SCH (08:48)
[2021-11-21] MEDS: Acetaminophen 325 MG TAB PO PRN (08:49)
[2021-11-21] MEDS ORDERED: Pregabalin 50 MG CAP PO SCH (09:00)
[2021-11-21] MEDS ORDERED: Amlodipine 5 MG TAB PO SCH (09:00)
== END 2021-11-21 10:25 | disposition home or self-care (01) | DRG 871 ==
LOC: ERS 13:53 → 2NO 18:33 → OBSVTOIN 11-20 10:06
PROVIDERS: ADMIT Internal Medicine; ATTEND Internal Medicine
DX: A41.9 Sepsis, unspecified organism (principal); J18.9 Pneumonia, unspecified organism; J96.01 Acute respiratory failure with hypoxia; J44.1 Chronic obstructive pulmonary disease with (acute) exacerbation; I50.32 Chronic diastolic (congestive) heart failure; J44.0 Chronic obstructive pulmonary disease with (acute) lower respiratory infection; Z20.822 Contact with and (suspected) exposure to COVID-19; I11.0 Hypertensive heart disease with heart failure; F17.210 Nicotine dependence, cigarettes, uncomplicated; I25.10 Atherosclerotic heart disease of native coronary artery without angina pectoris; M54.9 Dorsalgia, unspecified; G89.29 Other chronic pain; K21.9 Gastro-esophageal reflux disease without esophagitis; Z88.5 Allergy status to narcotic agent; Z79.51 Long term (current) use of inhaled steroids; Z79.899 Other long term (current) drug therapy; Z98.52 Vasectomy status; Z95.5 Presence of coronary angioplasty implant and graft
CPT/HCPCS: 0240U; 36415; 71045; 71275; 80048; 80053; 83605; 83880; 84484; 85025; 87040; 93005; 94640; 94644; 94660; C9113; J0456; J0696; J1650; J2060; J2270; J2930; J3010; J3475; J3490; J7050; J7512; J7620

== ENCOUNTER 2022-04-08 12:43 | Observation (INO) | payer MEDICARE ==
[2022-04-08] MEDS ORDERED: Aspirin Chewable 81 MG TAB ONE (12:54)
[2022-04-08] MEDS ORDERED: Nitroglycerin 2% Ointment 1 INCH/1 GM Packet ONE (12:54)
[2022-04-08 13:00] LABS: #Basophils 0.1 thou/uL (0.0-0.2); #Lymphocytes 1.6 thou/uL (1.20-3.40); #Monocytes 0.3 thou/uL (0.11-0.59); #Neutrophils 3.7 thou/uL (1.40-6.50); %Basophils 1.1 % (0.0-1.0); %Eosinophils 0.2 % (0.0-10.0); %Lymphocytes 28.4 % (21.0-51.0); %Monocytes 5.9 % (0.0-10.0); %Neutrophils 64.4 % (42.0-75.0); Hemoglobin 13.2 g/dL (14.0-18.0); Mean Corpuscular HGB CONC 32.6 g/dL (32.0-36.0); Mean Corpuscular Hemoglobin 32.6 pg (27.0-31.0); Mean Platelet Volume 7.2 fL (7.4-10.4); Platelet Count 519 thou/uL (130-400); RBC Distribution Width 14.2 % (11.5-14.5); Red Blood Cell (RBC) Count 4.05 mill/uL (4.70-6.10); White Blood Cell (WBC) Count 5.7 thou/uL (4.8-10.8)
[2022-04-08 13:30] LABS: ALT (SGPT) 10 U/L (8-55); AST (SGOT) 15 U/L (5-34); Alkaline Phosphatase 81 U/L (40-110); Anion Gap 13 mmol/L (10-20); BUN (Urea Nitrogen) 10 mg/dL (8.4-25.7); Bilirubin, Total 0.4 mg/dL (0.2-1.2); Calc. Creatinine Clearance 0 mL/min (70-130); Calcium 9.1 mg/dL (7.8-10.44); Carbon Dioxide 25 mmol/L (23-31); Chloride 101 mmol/L (98-107); Globulin 3.1 g/dL (2.4-3.5); Glucose 117 mg/dL (80-115); Lipase 22 U/L (8-78); Protein, Total 7.1 g/dL (5.8-8.1); Sodium 135 mmol/L (136-145)
[2022-04-08] MEDS ORDERED: Ondansetron PF 4 MG/2 ML Vial ONE ×2 (13:58→17:36)
[2022-04-08] MEDS ORDERED: Morphine 4 MG/ML VIAL ONE ×2 (13:58→17:14)
[2022-04-08] MEDS ORDERED: Morphine 2 MG/ML VIAL SLOW IVP PRN (16:26)
[2022-04-08] MEDS ORDERED: Nitroglycerin 0.4 MG TAB (25 Tab Bottle) SL PRN (16:28)
[2022-04-08] MEDS ORDERED: Sodium Chloride 0.9% 1,000 ML IV SCH (16:30)
[2022-04-08] MEDS ORDERED: Acetaminophen 325 MG TAB PO PRN (16:34)
[2022-04-08] MEDS ORDERED: Ondansetron PF 4 MG/2 ML Vial IVP PRN (16:34)
[2022-04-08] MEDS ORDERED: Nicotine 14 MG PATCH TD PRN (16:34)
[2022-04-08] MEDS ORDERED: Ondansetron ODT 4 MG TAB PO PRN (16:34)
[2022-04-08 17:04] LABS: Troponin I Less than 0.010 ng/mL (< 0.028)
[2022-04-08] MEDS ORDERED: Albuterol Sulfate 2.5 mg/3 ml Neb NEB PRN (17:06)
[2022-04-08 17:54] LABS: Magnesium 2.3 mg/dL (1.6-2.6)
[2022-04-08 20:38] LABS: Troponin I Less than 0.010 ng/mL (< 0.028)
[2022-04-08 21:56] VITALS: BMI 17.6
[2022-04-08 23:03] LABS: SARS-CoV-2 NAA Rapid Test Not Detected (NotDetected)
[2022-04-09] MEDS ORDERED: Albuterol 200 PUFF (6.7GM INHALER) INH PRN (03:01)
[2022-04-09] MEDS ORDERED: Mometasone 100 MCG/PUFF (1 INHALER) INH SCH (03:15)
[2022-04-09] MEDS ORDERED: Non-Formulary Item 1 EACH (Fluticasone/Umeclidin/Vilanter [Trelegy Ellipta 100-62.5-25] 1 IH SCH (03:15)
[2022-04-09] MEDS ORDERED: Acetaminophen/Codeine 30-300mg Tablet PO PRN (03:34)
[2022-04-09 04:11] VITALS: BP 153/101; TEMP 97.9
[2022-04-09 07:42] LABS: #Basophils 0.1 thou/uL (0.0-0.2); #Eosinphils 0.1 thou/uL (0.0-0.7); #Lymphocytes 2.1 thou/uL (1.20-3.40); #Monocytes 0.4 thou/uL (0.11-0.59); #Neutrophils 4.1 thou/uL (1.40-6.50); %Basophils 1.9 % (0.0-1.0); %Eosinophils 1.9 % (0.0-10.0); %Lymphocytes 30.6 % (21.0-51.0); %Monocytes 5.3 % (0.0-10.0); %Neutrophils 60.3 % (42.0-75.0); Hemoglobin 12.2 g/dL (14.0-18.0); Mean Corpuscular HGB CONC 31.2 g/dL (32.0-36.0); Mean Corpuscular Hemoglobin 31.5 pg (27.0-31.0); Mean Platelet Volume 7.3 fL (7.4-10.4); Platelet Count 461 thou/uL (130-400); RBC Distribution Width 13.5 % (11.5-14.5); Red Blood Cell (RBC) Count 3.88 mill/uL (4.70-6.10); White Blood Cell (WBC) Count 6.8 thou/uL (4.8-10.8)
[2022-04-09 08:05] LABS: Anion Gap 11 mmol/L (10-20); BUN (Urea Nitrogen) 7 mg/dL (8.4-25.7); Calc. Creatinine Clearance 71 mL/min (70-130); Calcium 8.7 mg/dL (7.8-10.44); Carbon Dioxide 26 mmol/L (23-31); Cardiac Risk 2.8 (Less than 4.5); Chloride 105 mmol/L (98-107); Cholesterol 163 mg/dl (< 200 Desired); Glucose 89 mg/dL (80-115); HDL Cholesterol 59 mg/dL (>60 Neg Risk); LDL Cholesterol, Calculated 91 mg/dL; Potassium 4.5 mmol/L (3.5-5.1); Sodium 137 mmol/L (136-145); Triglycerides 63 mg/dL (Less than 150)
[2022-04-09] MEDS ORDERED: Aspirin 81 mg Enteric Coated Tablet PO SCH (09:00)
[2022-04-09] MEDS ORDERED: Atorvastatin Calcium 10 MG TAB PO SCH (09:00)
== END 2022-04-09 08:19 | disposition left against medical advice (07) ==
LOC: ERS 12:43 → 2SW 14:43
PROVIDERS: ADMIT Internal Medicine; ATTEND Internal Medicine
DX: R07.89 Other chest pain (principal); E87.1 Hypo-osmolality and hyponatremia; R73.9 Hyperglycemia, unspecified; D53.9 Nutritional anemia, unspecified; D69.6 Thrombocytopenia, unspecified; I10 Essential (primary) hypertension; E78.5 Hyperlipidemia, unspecified; J44.9 Chronic obstructive pulmonary disease, unspecified; I25.10 Atherosclerotic heart disease of native coronary artery without angina pectoris; I25.2 Old myocardial infarction; F17.210 Nicotine dependence, cigarettes, uncomplicated; Z53.29 Procedure and treatment not carried out because of patient's decision for other reasons; Z79.899 Other long term (current) drug therapy; Z88.5 Allergy status to narcotic agent; Z95.5 Presence of coronary angioplasty implant and graft; Z20.822 Contact with and (suspected) exposure to COVID-19
CPT/HCPCS: 71045; 80048; 80053; 80061; 83690; 83735; 84484 ×2; 85025 ×2; 93005; 94760; 96374; 96375; 96376; 99285; G0378 ×3; U0002; 36415; J2270; J2405; J7050